=== PATIENT | female | born 1935 | race Caucasian/White ===

== ENCOUNTER 2023-03-20 14:33 | Inpatient (IN) ==
--- NOTE | 2023-03-20 14:36 | DR.GENAD ---
HPI Time Seen Time Seen by Provider: 03/20/23 14:52 Complaint/Symptoms Chief Complaint Doctors Comments: 87 y/o female presents for evaluation. Seen here few days ago with a left leg injury. + bruised, swollen, painful. Reportedly had a negative US last week, negative x-rays. Having generalized weak ness, shaking. Not eating or drinking well. Denies nausea, vomiting. Having some degree of constipation. Is urinating frequently, but no dysuria. No known fever, having some chills. No cough. On diuretic past few weeks, for leg swelling. Nurses notes reviewed Nurses Notes Review: Yes Source History Provided: Patient and Family Member PMH PMH Past Medical History: Yes Past Medical History: Anxiety and Hypertension Past Surgical History: Yes Surgical History: Cholecystectomy Family History Family Medical History: Diabetes Mellitus Social History Does patient currently use any type of tobacco product: No Alcohol Use: None Do you use any recreational Drugs:: No ROS Review of Systems Constitutional: Weakness Eyes: No Symptoms Reported ENTM: No Symptoms Reported Respiratoy: No Symptoms Reported Cardiovascular: No Symptoms Reported Gastrointestinal/Abdominal: No Symptoms Reported Genitourinary: Frequency Neurological: Weakness and Other (shakes) Musculoskeletal: Right and Leg Integumentary: No Symptoms Reported Hematologic/Lymphatic: No Symptoms Reported All Other Systems: Reviewed and Negative PE Vital Signs Vitals: Vital Signs Temperature 98.1 F Pulse Rate 77 Respiratory Rate 22 Blood Pressure 141/75 O2 Sat by Pulse Oximetry 100 General General Appearance: Alert and In No Apparent Distress Eyes Eye exam: PERRL and EOMI ENT ENT Exam: Mucous Membranes Moist Neck Neck Exam: Normal Inspection Respiratory Respiratory Exam: Normal Lung Sounds Bilat; negative Accessory Muscle Use or Respiratory Distress Cardiovascular Cardiovascular Exam: Regular Rate, Normal Rhythm and Normal Heart Sounds Abdominal Exam Abdominal Exam: Soft; negative Tenderness Back Back Exam: Normal Inspection Neurologic Neurological Exam: Alert, Oriented X3 and CN II-XII Intact; negative Motor Sensory Deficit Skin Skin Exam: Warm and Dry Other Exam Other Exam: RLE - + old ecchymosis of the entire anterior tib/fib region, + tender R calf. Distal NV intact. COURSE Treatment Treatment: 87 y/o female with weakness, shakes. Also with recent RLE injury. W/u initiated.Pt given IV fluids. CXR, R tib/fib x-rays unremarkable. Attempted repeat Doppler (was negative 1 week ago), pt declined. 1615 - U/A - 3+ janny est, 10-20 WBCs. Will treat with Rocephin for UTI (pt not PCN allergic, her father was). Sodium low at 131. Recommend admission for further treatment. Will contine IV NS. Discussed with Dr Ventura, accepts the admission. ROR Labs Reviewed Laboratory Results Reviewed?: Yes Result Diagrams: 03/20/23 15:02 03/20/23 15: Laboratory: WBC 5.3 X10^3/uL (3.6-10.0) 03/20/23 15: RBC 4.69 X10^6/uL (3.5-5.4) 03/20/23 15: Hgb 15.2 g/dL (12.0-16.0) 03/20/23 15: Hct 43.6 % (36.0-47.0) 03/20/23 15: MCV 92.8 fL (80.0-100.0) 03/20/23 15: MCH 32.5 pg (27.0-34.0) 03/20/23 15: MCHC 35.0 g/dL (33.0-35.0) 03/20/23 15: RDW 14.2 % (11.6-16.5) 03/20/23 15: Plt Count 179 X10^3/uL (150.0-450.0) 03/20/23 15:02 MPV 7.0 fL (7.4-11.0) L 03/20/23 15:02 Neut % (Auto) 72.7 % (42.0-75.0) 03/20/23 15:02 Lymph % (Auto) 18.6 % (21.0-51.0) L 03/20/23 15:02 [place] % (Auto) 7.3 % (0.0-13.0) 03/20/23 15:02 Eos % (Auto) 0.8 % (0.9-2.9) L 03/20/23 15:02 Baso % (Auto) 0.6 % (0.2-1.0) 03/20/23 15:02 Neut # (Auto) 3.8 x10^3/uL (2.2-4.8) 03/20/23 15:02 Lymph # (Auto) 1.0 X10^3/uL (1.3-2.9) L 03/20/23 15:02 [place] # (Auto) 0.4 x10^3/uL (0.3-0.8) 03/20/23 15:02 Eos # (Auto) 0.0 x10^3/uL (0.0-0.2) 03/20/23 15:02 Baso # (Auto) 0.0 X10^3/uL (0.0-0.1) 03/20/23 15:02 Absolute Nucleated RBC 0.0 /100WBC 03/20/23 15:02 Sodium 131 mmol/L (136-145) L 03/20/23 15:02 Corrected Sodium 132 mmol/L (136-145) L 03/20/23 15:02 Potassium 3.8 mmol/L (3.5-5.1) 03/20/23 15:02 Chloride 93 mmol/L (98-107) L 03/20/23 15:02 Carbon Dioxide 32.0 mmol/L (21-32) 03/20/23 15:02 BUN 17 mg/dL (7-18) 03/20/23 15:02 Creatinine 0.78 mg/dL (0.55-1.02) 03/20/23 15:02 Est GFR (MDRD) Af Amer > 60 (>60) 03/20/23 15:02 Est GFR (MDRD) Non-Af > 60 (>60) 03/20/23 15:02 Glucose 156 mg/dL (65-99) H 03/20/23 15:02 Calcium 9.6 mg/dL (8.5-10.1) 03/20/23 15:02 Corrected Calcium TNP 03/20/23 15:02 Total Bilirubin 0.90 mg/dL (0.2-1.0) 03/20/23 15:02 AST 20 Units/L (15-37) 03/20/23 15:02 ALT 24 Units/L (12-78) 03/20/23 15:02 Alkaline Phosphatase 72 Units/L (46-116) 03/20/23 15:02 Troponin I High Sens 17.0 ng/L (4.0-60.0) 03/20/23 15:02 Total Protein 7.0 g/dL (6.4-8.2) 03/20/23 15:02 Albumin 4.2 g/dL (3.4-5.0) 03/20/23 15:02 Globulin 2.8 g/dL (2.5-4.5) 03/20/23 15:02 Albumin/Globulin Ratio 1.5 Ratio (1.1-2.1) 03/20/23 15:02 Lipase 156 Units/L (73-393) 03/20/23 15:02 TSH 3rd Generation 1.603 uIU/mL (0.358-3.74) 03/20/23 15:02 Specimen Type Catherized urine 03/20/23 15:40 Urine Color Straw (YELLOW) 03/20/23 15:40 Urine Appearance Hazy (CLEAR) 03/20/23 15:40 Urine pH 8.0 (5.0 - 8.0) 03/20/23 15:40 Ur Specific [place] 1.015 (1.000-1.030) 03/20/23 15:40 Urine Protein Negative (NEGATIVE) 03/20/23 15:40 Urine Glucose (UA) Negative (NEGATIVE) 03/20/23 15:40 Urine Ketones Negative (NEGATIVE) 03/20/23 15:40 Urine Blood 1+ (NEGATIVE) 03/20/23 15:40 Urine Nitrite Negative (NEGATIVE) 03/20/23 15:40 Urine Bilirubin Negative (NEGATIVE) 03/20/23 15:40 Urine Urobilinogen Normal (NORMAL) 03/20/23 15:40 Ur Leukocyte Esterase 3+ (NEGATIVE) 03/20/23 15:40 Urine RBC 0-2 /HPF (0-3) 03/20/23 15:40 Urine WBC 10-20 /HPF (0-5) A 03/20/23 15:40 Ur Squamous Epith Cells Rare /HPF (NEGATIVE) 03/20/23 15:40 Urine Bacteria 1+ /HPF (NEGATIVE) 03/20/23 15:40 Urine Mucus Few /HPF (NEGATIVE) 03/20/23 15:40 Ur Culture Indicated? Yes/culture set up 03/20/23 15:40 Na 131, U/A 10-20 /hpf. XRAY XRAY Interpreted by: Both X-ray Results: CXR - unremarkable. R tib/fib - + DJD, no obvious fracture. Opioid Opioid Risk Tool Age (Nithin box if 16-45): No History of Preadolescent Sexual Abuse: No Total: 0 Total Score Risk Category: Low Risk Copyright: Joby RUST predicting aberrant behaviors Discharge Plan Diagnosis Discharge Problem: Acute hyponatremia, Acute UTI, Generalized weakness Discharge Plan Patient Disposition: 09 ADMITTED INPATIENT Condition: Stable Prescriptions: No Action triamterene-hydrochlorothiazid 37.5-25 mg capsule 1 cap PO QDAY Qty: 90 3RF rivastigmine tartrate 1.5 mg capsule 1.5 mg PO BID Qty: 60 0RF carisoprodol 350 mg tablet 350 mg PO BID PRN clonazepam 0.5 mg tablet 0.5 mg PO BID PRN megestrol 40 mg Tablet 40 mg PO BID baclofen 5 mg Tablet 5 mg PO TID PRN Health Concerns: Post Hospitalization: new medications and changes needed to prevent readmission or further decline. Pt educated and given instructions on all concerns. Plan of Treatment: Continue with present treatment and follow up plan. Pt is to keep follow up appointment as instructed and take medications as ordered. Orders to Discharge Patient Discharge Orders: Transfer (Routine); Ordered 03/20/23 Ordered By: Andrew Alonzo Follow ups/Referrals Follow ups/Referrals: LE VENTURA [Primary Care Provider] - 3 days
[2023-03-20] MEDS ORDERED: NS 500 ML IV 500 ML IV ONE ×2 (14:53→14:56)
[2023-03-20 15:32] LABS: BASOPHILS % (AUTO) 0.6 % (0.2-1.0); EOSINOPHILS % (AUTO) 0.8 % (0.9-2.9); HEMATOCRIT 43.6 % (36.0-47.0); HEMOGLOBIN 15.2 g/dL (12.0-16.0); LYMPHOCYTES % (AUTO) 18.6 % (21.0-51.0); MEAN CORPUSCULAR HEMOGLOBIN 32.5 pg (27.0-34.0); MEAN CORPUSCULAR VOLUME 92.8 fL (80.0-100.0); MONOCYTES # (AUTO) 0.4 x10^3/uL (0.3-0.8); MONOCYTES % (AUTO) 7.3 % (0.0-13.0); NEUTROPHILS # (AUTO) 3.8 x10^3/uL (2.2-4.8); NEUTROPHILS % (AUTO) 72.7 % (42.0-75.0); PLATELET COUNT 179 X10^3/uL (150.0-450.0); RED BLOOD COUNT 4.69 X10^6/uL (3.5-5.4); RED CELL DISTRIBUTION WIDTH 14.2 % (11.6-16.5); WHITE BLOOD COUNT 5.3 X10^3/uL (3.6-10.0)
[2023-03-20 15:50] LABS: BILIRUBIN,URINE NEGATIVE (NEGATIVE); BLOOD/HEMOGLOBIN,URINE 1+ (NEGATIVE); GLUCOSE, URINE NEGATIVE (NEGATIVE); KETONES,URINE NEGATIVE (NEGATIVE); LEUKOCYTE ESTERASE ,URINE 3+ (NEGATIVE); NITRITES,URINE NEGATIVE (NEGATIVE); PROTEIN,URINE NEGATIVE (NEGATIVE); UROBILINOGEN,URINE NORMAL (NORMAL)
[2023-03-20 15:57] LABS: ALANINE AMINOTRANSFERASE 24 Units/L (12-78); ALBUMIN 4.2 g/dL (3.4-5.0); ALKALINE PHOSPHATASE 72 Units/L (46-116); ASPARTATE AMINO TRANSFERASE 20 Units/L (15-37); BLOOD UREA NITROGEN 17 mg/dL (7-18); CALCIUM 9.6 mg/dL (8.5-10.1); CHLORIDE 93 mmol/L (98-107); COR NA(FOR HYPERGLY) 132 mmol/L (136-145); CREATININE 0.78 mg/dL (0.55-1.02); GLUCOSE 156 mg/dL (65-99); LIPASE 156 Units/L (73-393); POTASSIUM 3.8 mmol/L (3.5-5.1); SODIUM 131 mmol/L (136-145); TSH (3RD GENERATION) 1.603 uIU/mL (0.358-3.74); eGFR NON BLACK RACES > 60 (>60)
[2023-03-20 16:02] LABS: APPEARANCE,URINE HAZY (CLEAR); COLOR,URINE STRAW (YELLOW)
[2023-03-20 16:03] LABS: BACTERIA,URINE 1+ /HPF (NEGATIVE); RBC,URINE 0-2 /HPF (0-3); SQUAMOUS EPITHELIAL CELL,UR RARE /HPF (NEGATIVE)
--- NOTE | 2023-03-20 16:09 | RAD ---
HISTORYWeaknessSTUDYAP chestCOMPARISONReport only October 12, 2017FINDINGSHeart size normal with no definite pulmonary consolidation, edema, adenopathy or pleural effusion.IMPRESSIONNo acute chest abnormality demonstrated. Previous exam for comparison not currently available.Electronically signed by: DAGOBERTO SÁNCHEZ (Mar 20, 2023 16:08:05)
[2023-03-20] MEDS ORDERED: ROCEPHIN VIAL 1 GRAM 1 G in NS 100 ML IV 100 ML IV ONE (16:16)
[2023-03-20] MEDS ORDERED: ROCEPHIN VIAL 1 GRAM ONE (16:22)
[2023-03-20] MEDS ORDERED: NS 100 ML IV 100 ML ONE (16:22)
[2023-03-20 18:40] VITALS: BMI 27.1
--- NOTE | 2023-03-20 21:27 | DR.H&P ---
H&P History & Physical for Day of: H&P Date: 03/20/23 Chief Complaint Chief Complaint: Weak, shaky and unable to get into the bed. Allergies Allergies Allergy/AdvReac Type Severity Reaction Status Date / Time benzonatate Allergy Verified 03/14/23 13:57 [From Tessalon Perles] meperidine [From Demerol] Allergy Verified 03/14/23 13:57 Penicillins Allergy Verified 03/14/23 13:57 rofecoxib [From Vioxx] Allergy Verified 03/14/23 13:57 WATER PILLS Allergy Uncoded 04/18/22 11:31 History of Present Illness History of Present Illness: This is a 87-year-old white female well-known to me. She called our office earlier this morning and said that she was going to call the EMS to come get her and she is not able to get into the bed. She reports that she is weak and shaky feeling and that she has been having some swelling of the right lower extremity. She does report a recent injury to the right lower extremity from a fall in which she came to the [facility] emergency department about 3 days ago and was seen. One of the nurses tried to put on a leg wrap and the patient reports that it bruised her right lower extremity. She reports she has not slept for the last 3 days and feels exhausted and wants to rest and go to bed. Work-up in the emergency department revealed that she has a urinary tract infection and she had some hyponatremia as well. Her labs are otherwise unremarkable. Her chest x-ray shows no acute cardiopulmonary process and no infiltrates. Patient has a very great difficulty ambulating and getting around her home and I have discussed senior care placement with her in the past however she is adamant about not going to the senior care. She does not like to take any medications of any kind and he has made it very difficult in treating this patient. Past Medical History Past Medical History: Anxiety and Hypertension Past Surgical History Surgical History: Cholecystectomy and Tonsillectomy Family History Family Medical History: Diabetes Mellitus Social History Does patient currently use any type of tobacco product: No Have you used tobacco products in the last 12 months: No Type of Tobacco Use: None Does any household member use tobacco: No Alcohol Use: None Drug Use: None Medications Home Medications: Home Medications Medication Instructions Recorded Confirmed Type baclofen 5 mg tablet 5 mg PO TID PRN 03/20/23 03/20/23 History carisoprodol 350 mg tablet 350 mg PO BID PRN 03/20/23 03/20/23 History clonazepam 0.5 mg tablet 0.5 mg PO BID PRN 03/20/23 03/20/23 History megestrol 40 mg tablet 40 mg PO BID 03/20/23 03/20/23 History Labs Result Diagrams: 03/20/23 15:02 03/20/23 15:02 Labs: Laboratory WBC 5.3 X10^3/uL (3.6-10.0) 03/20/23 15:02 RBC 4.69 X10^6/uL (3.5-5.4) 03/20/23 15:02 Hgb 15.2 g/dL (12.0-16.0) 03/20/23 15:02 Hct 43.6 % (36.0-47.0) 03/20/23 15:02 MCV 92.8 fL (80.0-100.0) 03/20/23 15:02 MCH 32.5 pg (27.0-34.0) 03/20/23 15:02 MCHC 35.0 g/dL (33.0-35.0) 03/20/23 15:02 RDW 14.2 % (11.6-16.5) 03/20/23 15:02 Plt Count 179 X10^3/uL (150.0-450.0) 03/20/23 15:02 MPV 7.0 fL (7.4-11.0) L 03/20/23 15:02 Neut % (Auto) 72.7 % (42.0-75.0) 03/20/23 15:02 Lymph % (Auto) 18.6 % (21.0-51.0) L 03/20/23 15:02 [place] % (Auto) 7.3 % (0.0-13.0) 03/20/23 15:02 Eos % (Auto) 0.8 % (0.9-2.9) L 03/20/23 15:02 Baso % (Auto) 0.6 % (0.2-1.0) 03/20/23 15:02 Neut # (Auto) 3.8 x10^3/uL (2.2-4.8) 03/20/23 15:02 Lymph # (Auto) 1.0 X10^3/uL (1.3-2.9) L 03/20/23 15:02 [place] # (Auto) 0.4 x10^3/uL (0.3-0.8) 03/20/23 15:02 Eos # (Auto) 0.0 x10^3/uL (0.0-0.2) 03/20/23 15:02 Baso # (Auto) 0.0 X10^3/uL (0.0-0.1) 03/20/23 15:02 Absolute Nucleated RBC 0.0 /100WBC 03/20/23 15:02 Sodium 131 mmol/L (136-145) L 03/20/23 15:02 Corrected Sodium 132 mmol/L (136-145) L 03/20/23 15:02 Potassium 3.8 mmol/L (3.5-5.1) 03/20/23 15:02 Chloride 93 mmol/L (98-107) L 03/20/23 15:02 Carbon Dioxide 32.0 mmol/L (21-32) 03/20/23 15:02 BUN 17 mg/dL (7-18) 03/20/23 15:02 Creatinine 0.78 mg/dL (0.55-1.02) 03/20/23 15:02 Est GFR (MDRD) Af Amer > 60 (>60) 03/20/23 15:02 Est GFR (MDRD) Non-Af > 60 (>60) 03/20/23 15:02 Glucose 156 mg/dL (65-99) H 03/20/23 15:02 Calcium 9.6 mg/dL (8.5-10.1) 03/20/23 15:02 Corrected Calcium TNP 03/20/23 15:02 Total Bilirubin 0.90 mg/dL (0.2-1.0) 03/20/23 15:02 AST 20 Units/L (15-37) 03/20/23 15:02 ALT 24 Units/L (12-78) 03/20/23 15:02 Alkaline Phosphatase 72 Units/L (46-116) 03/20/23 15:02 Troponin I High Sens 17.0 ng/L (4.0-60.0) 03/20/23 15:02 Total Protein 7.0 g/dL (6.4-8.2) 03/20/23 15:02 Albumin 4.2 g/dL (3.4-5.0) 03/20/23 15:02 Globulin 2.8 g/dL (2.5-4.5) 03/20/23 15:02 Albumin/Globulin Ratio 1.5 Ratio (1.1-2.1) 03/20/23 15:02 Lipase 156 Units/L (73-393) 03/20/23 15:02 TSH 3rd Generation 1.603 uIU/mL (0.358-3.74) 03/20/23 15:02 Specimen Type Catherized urine 03/20/23 15:40 Urine Color Straw (YELLOW) 03/20/23 15:40 Urine Appearance Hazy (CLEAR) 03/20/23 15:40 Urine pH 8.0 (5.0 - 8.0) 03/20/23 15:40 Ur Specific [place] 1.015 (1.000-1.030) 03/20/23 15:40 Urine Protein Negative (NEGATIVE) 03/20/23 15:40 Urine Glucose (UA) Negative (NEGATIVE) 03/20/23 15:40 Urine Ketones Negative (NEGATIVE) 03/20/23 15:40 Urine Blood 1+ (NEGATIVE) 03/20/23 15:40 Urine Nitrite Negative (NEGATIVE) 03/20/23 15:40 Urine Bilirubin Negative (NEGATIVE) 03/20/23 15:40 Urine Urobilinogen Normal (NORMAL) 03/20/23 15:40 Ur Leukocyte Esterase 3+ (NEGATIVE) 03/20/23 15:40 Urine RBC 0-2 /HPF (0-3) 03/20/23 15:40 Urine WBC 10-20 /HPF (0-5) A 03/20/23 15:40 Ur Squamous Epith Cells Rare /HPF (NEGATIVE) 03/20/23 15:40 Urine Bacteria 1+ /HPF (NEGATIVE) 03/20/23 15:40 Urine Mucus Few /HPF (NEGATIVE) 03/20/23 15:40 Ur Culture Indicated? Yes/culture set up 03/20/23 15:40 Review of Systems Constitutional: Weakness and Malaise; denies Fever, Chills or Sweats Eyes: No Symptoms Reported ENT: No Symptoms Reported Respiratory: SOB with Excertion; denies Cough, Dry, Shortness of Breath, Hemoptysis, Pleuritic Pain, Sputum or Wheezing Cardiovascular: Edema; denies Chest Pain, Palpitations, Orthopnea, Paroxysmal Noc. Dyspnea or Light Headedness Gastrointestinal: denies Nausea, Vomiting, Abdominal Pain, Diarrhea, Constipation, Melena or Hematochezia Genitourinary: Frequency; denies Dysuria or Hematuria Musculoskeletal: Leg Pain and Neck Pain Skin: Bruising and Ecchymosis; denies Rash, Lesions, Jaundice or Wound Neurological: Weakness and Incoordination; denies Numbness, Change in Speech, Confusion or Seizures Physical Exam Vital Signs: Vital Signs Temperature 97.9 F Temperature 97.9 F Temperature 98.1 F Temperature 98.1 F Pulse Rate [Brachial] 81 Pulse Rate [Brachial] 81 Pulse Rate [Brachial] 77 Pulse Rate 77 Respiratory Rate 18 Respiratory Rate 18 Respiratory Rate 20 Respiratory Rate 22 Blood Pressure [Left Arm] 112/56 Blood Pressure [Left Arm] 112/56 Blood Pressure [Left Arm] 141/75 Blood Pressure 141/75 O2 Sat by Pulse Oximetry 94 O2 Sat by Pulse Oximetry 94 O2 Sat by Pulse Oximetry 97 O2 Sat by Pulse Oximetry 100 Oriented: Normal, Time, Person and Place Eyes: Normal Ear: Normal Nose: Normal Throat: Normal Respiratory: Clear Throughout Cardiovascular: Normal : Normal Auscultation: Bowel Sounds: Normal Palpation: Normal Tenderness: Normal Skin: Tender and Ecchymosis Musculoskeletal: Right and Leg Psychiatric: Anxiety and Depression; negative Normal or Agitation Mood Description: Calm, Depressed, Anxious and Labile; negative Angry, Fearful, Flat, Happy, Hostile, Sad, Suspicious or Withdrawn Affect: Anxious; negative Angry, Depressed, Flat, Hysterical, Quiet or Violent Speech Pattern: Clear and Appropriate; negative Inappropriate, Delayed, Slurred, Excessive or Aphasic Assessment/Plan (1) Acute hyponatremia: Status: Acute Plan: Normal saline IV hydration. Repeat CMP in a.m. (2) Acute UTI: Status: Acute Plan: Rocephin 1 g IV daily. Follow-up with urine culture and sensitivity when available. (3) Generalized weakness: Status: Acute Plan: IV hydration with normal saline. If her sodium normalizes that should help improve her overall strength. (4) Memory loss: Status: Acute Plan: Resume rivastigmine 1.5 mg p.o. twice daily. (5) Depression with anxiety: Status: Acute Plan: Monitor for worsening signs of depression and anxiety. (6) Chronic back pain: Status: Acute Plan: Tramadol as needed for pain. (7) Hypertension: Status: None Plan: Monitor daily blood pressures. Review H&P Reviewed: Yes Patient was examined?: Yes
[2023-03-20] MEDS: MEGACE PO SCH (21:37)
[2023-03-20] MEDS: EXELON PO SCH (21:37)
[2023-03-20] MEDS: LIORESAL PO PRN (21:52)
[2023-03-20] MEDS: NS 500 ML IV 500 ML IV SCH (22:00)
--- NOTE | 2023-03-21 01:16 | RAD ---
HISTORYWEAKNESS Relevant Clinical InformationSTUDYLOWER LEG, TIB/FIB RIGHTCOMPARISONNoneFINDINGSAP and lateral radiographs of the lower extremity demonstrate no evidence for acute cortical disruption. No significant soft tissue abnormality can be identified. Moderate degenerative changes involving the right knee joint.IMPRESSIONModerate degenerative osteoarthritic changes right knee joint.No acute bony abnormalityElectronically signed by: George Jones (Mar 21, 2023 01:14:12)
[2023-03-21] MEDS: NS 500 ML IV 500 ML IV SCH ×4 (03:40→21:13)
[2023-03-21 06:02] LABS: BASOPHILS % (AUTO) 0.6 % (0.2-1.0); EOSINOPHILS # (AUTO) 0.1 x10^3/uL (0.0-0.2); EOSINOPHILS % (AUTO) 1.4 % (0.9-2.9); HEMATOCRIT 38.4 % (36.0-47.0); HEMOGLOBIN 13.5 g/dL (12.0-16.0); LYMPHOCYTES # (AUTO) 0.9 X10^3/uL (1.3-2.9); LYMPHOCYTES % (AUTO) 13.5 % (21.0-51.0); MEAN CORPUSCULAR HEMOGLOBIN 32.4 pg (27.0-34.0); MEAN CORPUSCULAR HGB CONC 35.2 g/dL (33.0-35.0); MEAN CORPUSCULAR VOLUME 92.1 fL (80.0-100.0); MEAN PLATELET VOLUME 7.1 fL (7.4-11.0); MONOCYTES # (AUTO) 0.5 x10^3/uL (0.3-0.8); MONOCYTES % (AUTO) 7.6 % (0.0-13.0); NEUTROPHILS # (AUTO) 4.8 x10^3/uL (2.2-4.8); NEUTROPHILS % (AUTO) 76.9 % (42.0-75.0); PLATELET COUNT 160 X10^3/uL (150.0-450.0); RED BLOOD COUNT 4.17 X10^6/uL (3.5-5.4); WHITE BLOOD COUNT 6.3 X10^3/uL (3.6-10.0)
[2023-03-21 06:14] LABS: ALANINE AMINOTRANSFERASE 19 Units/L (12-78); ALBUMIN 3.5 g/dL (3.4-5.0); ALKALINE PHOSPHATASE 61 Units/L (46-116); ASPARTATE AMINO TRANSFERASE 15 Units/L (15-37); BLOOD UREA NITROGEN 14 mg/dL (7-18); CALCIUM 8.7 mg/dL (8.5-10.1); CARBON DIOXIDE 30.4 mmol/L (21-32); CHLORIDE 98 mmol/L (98-107); COR NA(FOR HYPERGLY) 135 mmol/L (136-145); CREATININE 0.59 mg/dL (0.55-1.02); GLUCOSE 115 mg/dL (65-99); MAGNESIUM 2.2 mg/dL (2.0-2.9); POTASSIUM 3.7 mmol/L (3.5-5.1); SODIUM 135 mmol/L (136-145); TOTAL PROTEIN 5.9 g/dL (6.4-8.2); eGFR NON BLACK RACES > 60 (>60)
[2023-03-21] MEDS ORDERED: CONSULT PHARMACY - POTASSIUM & MAGNESIUM XX SCH (07:00)
[2023-03-21] MEDS ORDERED: K-DUR TAB 20 MEQ PO SCH (09:00)
[2023-03-21] MEDS: EXELON PO SCH ×2 (10:40→21:14)
[2023-03-21] MEDS: LOVENOX INJ 40 MG SYR SC SCH (10:40)
[2023-03-21] MEDS: MEGACE PO SCH ×2 (10:40→21:14)
[2023-03-21] MEDS: ROCEPHIN VIAL 1 GRAM 1 G in NS 100 ML IV 100 ML IV SCH (15:37)
[2023-03-21] MEDS: RESTORIL CAP 15 MG PO SCH (21:14)
--- NOTE | 2023-03-21 21:17 | PCM.PROG ---
Progress Note Progress Note for Day of Date of Exam: 03/21/23 Subjective Subjective: The patient reports she did not sleep well last night. She is feeling a little bit better this morning since receiving Rocephin yesterday for urinary tract infection she was diagnosed with coming through the ER. She reports there was a lot of people coming in the room last night and because of that it was interrupting her sleep. I told her tonight we would start her on some temazepam to help her rest better. We are giving her baclofen at bedtime for her nocturnal leg cramps especially in the left posterior thigh. Past Medical Family Social History Allergies: Allergies benzonatate [From Tessalon Perles] Allergy (Verified 03/14/23 13:57) meperidine [From Demerol] Allergy (Verified 03/14/23 13:57) Penicillins Allergy (Verified 03/14/23 13:57) rofecoxib [From Vioxx] Allergy (Verified 03/14/23 13:57) WATER PILLS Allergy (Uncoded 04/18/22 11:31) Review of Systems ROS: No change since H&P Vital Signs and I&O's Vital Signs: Vital Signs Temperature 98.2 F Pulse Rate [Brachial] 69 Respiratory Rate 18 Blood Pressure [Right Arm] 106/51 O2 Sat by Pulse Oximetry 69 Intake and Output: Intake & Output 03/19/23 03/20/23 03/21/23 03/22/23 11:59 11:59 11:59 11:59 Intake Total 1009 / 1009 925 / 925 Output Total 1170 / 1170 725 / 725 Balance -161 / -161 200 / 200 Physical Exam Oriented: Normal, Time, Person and Place Eyes: Normal Ear: Normal Nose: Normal Throat: Normal Respiratory: Normal Cardiovascular: Normal : Normal Auscultation: Bowel Sounds: Normal Tenderness: Normal Skin: Tender and Ecchymosis Musculoskeletal: Right and Leg Psychiatric: Anxiety and Depression; negative Normal or Agitation Mood Description: Calm, Depressed, Anxious and Labile; negative Angry, Fearful, Flat, Happy, Hostile, Sad, Suspicious or Withdrawn Affect: Anxious; negative Angry, Depressed, Flat, Hysterical, Quiet or Violent Speech Pattern: Clear and Appropriate Laboratory and Diagnostics Result Diagrams: 03/21/23 05:09 03/21/23 05:09 Labs: 03/20/23 15:40 Urine,Catheterized Urine Culture - Preliminary Laboratory WBC 6.3 X10^3/uL (3.6-10.0) 03/21/23 05:09 RBC 4.17 X10^6/uL (3.5-5.4) 03/21/23 05:09 Hgb 13.5 g/dL (12.0-16.0) 03/21/23 05:09 Hct 38.4 % (36.0-47.0) 03/21/23 05:09 MCV 92.1 fL (80.0-100.0) 03/21/23 05:09 MCH 32.4 pg (27.0-34.0) 03/21/23 05:09 MCHC 35.2 g/dL (33.0-35.0) H 03/21/23 05:09 RDW 14.0 % (11.6-16.5) 03/21/23 05:09 Plt Count 160 X10^3/uL (150.0-450.0) 03/21/23 05:09 MPV 7.1 fL (7.4-11.0) L 03/21/23 05:09 Neut % (Auto) 76.9 % (42.0-75.0) H 03/21/23 05:09 Lymph % (Auto) 13.5 % (21.0-51.0) L 03/21/23 05:09 [place] % (Auto) 7.6 % (0.0-13.0) 03/21/23 05:09 Eos % (Auto) 1.4 % (0.9-2.9) 03/21/23 05:09 Baso % (Auto) 0.6 % (0.2-1.0) 03/21/23 05:09 Neut # (Auto) 4.8 x10^3/uL (2.2-4.8) 03/21/23 05:09 Lymph # (Auto) 0.9 X10^3/uL (1.3-2.9) L 03/21/23 05:09 [place] # (Auto) 0.5 x10^3/uL (0.3-0.8) 03/21/23 05:09 Eos # (Auto) 0.1 x10^3/uL (0.0-0.2) 03/21/23 05:09 Baso # (Auto) 0.0 X10^3/uL (0.0-0.1) 03/21/23 05:09 Absolute Nucleated RBC 0.0 /100WBC 03/21/23 05:09 Sodium 135 mmol/L (136-145) L 03/21/23 05:09 Corrected Sodium 135 mmol/L (136-145) L 03/21/23 05:09 Potassium 3.7 mmol/L (3.5-5.1) 03/21/23 05:09 Chloride 98 mmol/L (98-107) 03/21/23 05:09 Carbon Dioxide 30.4 mmol/L (21-32) 03/21/23 05:09 BUN 14 mg/dL (7-18) 03/21/23 05:09 Creatinine 0.59 mg/dL (0.55-1.02) 03/21/23 05:09 Est GFR (MDRD) Af Amer > 60 (>60) 03/21/23 05:09 Est GFR (MDRD) Non-Af > 60 (>60) 03/21/23 05:09 Glucose 115 mg/dL (65-99) H 03/21/23 05:09 Calcium 8.7 mg/dL (8.5-10.1) 03/21/23 05:09 Corrected Calcium TNP 03/21/23 05:09 Magnesium 2.2 mg/dL (2.0-2.9) 03/21/23 05:09 Total Bilirubin 0.70 mg/dL (0.2-1.0) 03/21/23 05:09 AST 15 Units/L (15-37) 03/21/23 05:09 ALT 19 Units/L (12-78) 03/21/23 05:09 Alkaline Phosphatase 61 Units/L (46-116) 03/21/23 05:09 Troponin I High Sens 17.0 ng/L (4.0-60.0) 03/20/23 15:02 Total Protein 5.9 g/dL (6.4-8.2) L 03/21/23 05:09 Albumin 3.5 g/dL (3.4-5.0) 03/21/23 05:09 Globulin 2.4 g/dL (2.5-4.5) L 03/21/23 05:09 Albumin/Globulin Ratio 1.5 Ratio (1.1-2.1) 03/21/23 05:09 Lipase 156 Units/L (73-393) 03/20/23 15:02 TSH 3rd Generation 1.603 uIU/mL (0.358-3.74) 03/20/23 15:02 Specimen Type Catherized urine 03/20/23 15:40 Urine Color Straw (YELLOW) 03/20/23 15:40 Urine Appearance Hazy (CLEAR) 03/20/23 15:40 Urine pH 8.0 (5.0 - 8.0) 03/20/23 15:40 Ur Specific [place] 1.015 (1.000-1.030) 03/20/23 15:40 Urine Protein Negative (NEGATIVE) 03/20/23 15:40 Urine Glucose (UA) Negative (NEGATIVE) 03/20/23 15:40 Urine Ketones Negative (NEGATIVE) 03/20/23 15:40 Urine Blood 1+ (NEGATIVE) 03/20/23 15:40 Urine Nitrite Negative (NEGATIVE) 03/20/23 15:40 Urine Bilirubin Negative (NEGATIVE) 03/20/23 15:40 Urine Urobilinogen Normal (NORMAL) 03/20/23 15:40 Ur Leukocyte Esterase 3+ (NEGATIVE) 03/20/23 15:40 Urine RBC 0-2 /HPF (0-3) 03/20/23 15:40 Urine WBC 10-20 /HPF (0-5) A 03/20/23 15:40 Ur Squamous Epith Cells Rare /HPF (NEGATIVE) 03/20/23 15:40 Urine Bacteria 1+ /HPF (NEGATIVE) 03/20/23 15:40 Urine Mucus Few /HPF (NEGATIVE) 03/20/23 15:40 Ur Culture Indicated? Yes/culture set up 03/20/23 15:40 Plan (1) Acute hyponatremia: Status: Acute Narrative Support Text: Much improved since admission she is 135 today on her sodium level. Plan: Normal saline IV hydration. Repeat CMP in a.m. (2) Acute UTI: Status: Acute Plan: Rocephin 1 g IV daily. Follow-up with urine culture and sensitivity when available. (3) Generalized weakness: Status: Acute Plan: IV hydration with normal saline. If her sodium normalizes that ould help improve her overall strength. (4) Memory loss: Status: Acute Plan: Resume rivastigmine 1.5 mg p.o. twice daily. (5) Depression with anxiety: Status: Acute Plan: Monitor for worsening signs of depression and anxiety. (6) Chronic back pain: Status: Acute Plan: Tramadol as needed for pain. (7) Hypertension: Status: None Plan: Monitor daily blood pressures.
[2023-03-22] MEDS: NS 500 ML IV 500 ML IV SCH ×3 (03:50→23:57)
[2023-03-22 06:33] LABS: BASOPHILS % (AUTO) 0.9 % (0.2-1.0); EOSINOPHILS # (AUTO) 0.1 x10^3/uL (0.0-0.2); EOSINOPHILS % (AUTO) 2.2 % (0.9-2.9); HEMATOCRIT 40.3 % (36.0-47.0); LYMPHOCYTES # (AUTO) 1.5 X10^3/uL (1.3-2.9); LYMPHOCYTES % (AUTO) 25.5 % (21.0-51.0); MEAN CORPUSCULAR HEMOGLOBIN 32.6 pg (27.0-34.0); MEAN CORPUSCULAR HGB CONC 34.8 g/dL (33.0-35.0); MEAN CORPUSCULAR VOLUME 93.5 fL (80.0-100.0); MONOCYTES # (AUTO) 0.5 x10^3/uL (0.3-0.8); MONOCYTES % (AUTO) 8.3 % (0.0-13.0); NEUTROPHILS # (AUTO) 3.6 x10^3/uL (2.2-4.8); NEUTROPHILS % (AUTO) 63.1 % (42.0-75.0); PLATELET COUNT 135 X10^3/uL (150.0-450.0); RED BLOOD COUNT 4.31 X10^6/uL (3.5-5.4); RED CELL DISTRIBUTION WIDTH 14.1 % (11.6-16.5); WHITE BLOOD COUNT 5.7 X10^3/uL (3.6-10.0)
[2023-03-22 07:06] LABS: ALANINE AMINOTRANSFERASE 18 Units/L (12-78); ALBUMIN 3.5 g/dL (3.4-5.0); ALKALINE PHOSPHATASE 63 Units/L (46-116); ASPARTATE AMINO TRANSFERASE 19 Units/L (15-37); BLOOD UREA NITROGEN 8 mg/dL (7-18); CARBON DIOXIDE 24.7 mmol/L (21-32); CHLORIDE 102 mmol/L (98-107); CREATININE 0.53 mg/dL (0.55-1.02); GLUCOSE 103 mg/dL (65-99); MAGNESIUM 2.3 mg/dL (2.0-2.9); POTASSIUM 3.9 mmol/L (3.5-5.1); SODIUM 136 mmol/L (136-145); TOTAL PROTEIN 6.2 g/dL (6.4-8.2); eGFR NON BLACK RACES > 60 (>60)
[2023-03-22] MEDS ORDERED: CONSULT PHARMACY - POTASSIUM & MAGNESIUM XX SCH (08:00)
[2023-03-22] MEDS: MEGACE PO SCH ×2 (08:43→21:26)
[2023-03-22] MEDS: EXELON PO SCH ×2 (08:43→21:26)
[2023-03-22] MEDS: LOVENOX INJ 40 MG SYR SC SCH (08:44)
[2023-03-22] MEDS: ROCEPHIN VIAL 1 GRAM 1 G in NS 100 ML IV 100 ML IV SCH (15:53)
--- NOTE | 2023-03-22 20:59 | PCM.PROG ---
Progress Note Progress Note for Day of Date of Exam: 03/22/23 Subjective Subjective: The patient reports she did sleep 4 hours last night. We did give her temazepam 30 mg last night. This did help her to sleep longer than what she normally sleeps. She looks better overall but now she is complaining still having great difficulty getting around. I told her that we will go ahead and get physical therapy to see her today and start working with her. She is having such a hard time getting around I think inpatient physical therapy would do her good for the next 2 to 3 to 4 days before discharging her back home. She refuses to go to inpatient rehab at this time. Past Medical Family Social History Allergies: Allergies benzonatate [From Tessalon Perles] Allergy (Verified 03/14/23 13:57) meperidine [From Demerol] Allergy (Verified 03/14/23 13:57) Penicillins Allergy (Verified 03/14/23 13:57) rofecoxib [From Vioxx] Allergy (Verified 03/14/23 13:57) WATER PILLS Allergy (Uncoded 04/18/22 11:31) Review of Systems ROS: No change since H&P Vital Signs and I&O's Vital Signs: Vital Signs Temperature 97.5 F Pulse Rate [Brachial] 76 Respiratory Rate 20 Blood Pressure [Left Arm] 121/60 Blood Pressure [Right Arm] 131/60 O2 Sat by Pulse Oximetry 98 Intake and Output: Intake & Output 03/20/23 03/21/23 03/22/23 03/23/23 11:59 11:59 11:59 11:59 Intake Total 1009 / 1009 2522 / 2522 1085 / 1085 Output Total 1170 / 1170 1725 / 1725 800 / 800 Balance -161 / -161 797 / 797 285 / 285 Physical Exam Oriented: Normal, Time, Person and Place Eyes: Normal Ear: Normal Nose: Normal Throat: Normal Respiratory: Normal Cardiovascular: Normal : Normal Auscultation: Bowel Sounds: Normal Tenderness: Normal Skin: Tender and Ecchymosis Musculoskeletal: Right and Leg Psychiatric: Anxiety and Depression; negative Normal or Agitation Mood Description: Calm, Depressed, Anxious and Labile; negative Angry, Fearful, Flat, Happy, Hostile, Sad, Suspicious or Withdrawn Affect: Anxious; negative Angry, Depressed, Flat, Hysterical, Quiet or Violent Speech Pattern: Clear and Appropriate Laboratory and Diagnostics Result Diagrams: 03/22/23 05:38 03/22/23 05:38 Labs: 03/20/23 15:40 Urine,Catheterized Urine Culture - Final Escherichia Coli Laboratory WBC 5.7 X10^3/uL (3.6-10.0) 03/22/23 05:38 RBC 4.31 X10^6/uL (3.5-5.4) 03/22/23 05:38 Hgb 14.0 g/dL (12.0-16.0) 03/22/23 05:38 Hct 40.3 % (36.0-47.0) 03/22/23 05:38 MCV 93.5 fL (80.0-100.0) 03/22/23 05:38 MCH 32.6 pg (27.0-34.0) 03/22/23 05:38 MCHC 34.8 g/dL (33.0-35.0) 03/22/23 05:38 RDW 14.1 % (11.6-16.5) 03/22/23 05:38 Plt Count 135 X10^3/uL (150.0-450.0) L 03/22/23 05:38 MPV 7.0 fL (7.4-11.0) L 03/22/23 05:38 Neut % (Auto) 63.1 % (42.0-75.0) 03/22/23 05:38 Lymph % (Auto) 25.5 % (21.0-51.0) 03/22/23 05:38 [place] % (Auto) 8.3 % (0.0-13.0) 03/22/23 05:38 Eos % (Auto) 2.2 % (0.9-2.9) 03/22/23 05:38 Baso % (Auto) 0.9 % (0.2-1.0) 03/22/23 05:38 Neut # (Auto) 3.6 x10^3/uL (2.2-4.8) 03/22/23 05:38 Lymph # (Auto) 1.5 X10^3/uL (1.3-2.9) 03/22/23 05:38 [place] # (Auto) 0.5 x10^3/uL (0.3-0.8) 03/22/23 05:38 Eos # (Auto) 0.1 x10^3/uL (0.0-0.2) 03/22/23 05:38 Baso # (Auto) 0.0 X10^3/uL (0.0-0.1) 03/22/23 05:38 Absolute Nucleated RBC 0.0 /100WBC 03/22/23 05:38 Sodium 136 mmol/L (136-145) 03/22/23 05:38 Corrected Sodium TNP 03/22/23 05:38 Potassium 3.9 mmol/L (3.5-5.1) 03/22/23 05:38 Chloride 102 mmol/L (98-107) 03/22/23 05:38 Carbon Dioxide 24.7 mmol/L (21-32) 03/22/23 05:38 BUN 8 mg/dL (7-18) 03/22/23 05:38 Creatinine 0.53 mg/dL (0.55-1.02) L 03/22/23 05:38 Est GFR (MDRD) Af Amer > 60 (>60) 03/22/23 05:38 Est GFR (MDRD) Non-Af > 60 (>60) 03/22/23 05:38 Glucose 103 mg/dL (65-99) H 03/22/23 05:38 Calcium 9.0 mg/dL (8.5-10.1) 03/22/23 05:38 Corrected Calcium TNP 03/22/23 05:38 Magnesium 2.3 mg/dL (2.0-2.9) 03/22/23 05:38 Total Bilirubin 0.50 mg/dL (0.2-1.0) 03/22/23 05:38 AST 19 Units/L (15-37) 03/22/23 05:38 ALT 18 Units/L (12-78) 03/22/23 05:38 Alkaline Phosphatase 63 Units/L (46-116) 03/22/23 05:38 Troponin I High Sens 17.0 ng/L (4.0-60.0) 03/20/23 15:02 Total Protein 6.2 g/dL (6.4-8.2) L 03/22/23 05:38 Albumin 3.5 g/dL (3.4-5.0) 03/22/23 05:38 Globulin 2.7 g/dL (2.5-4.5) 03/22/23 05:38 Albumin/Globulin Ratio 1.3 Ratio (1.1-2.1) 03/22/23 05:38 Lipase 156 Units/L (73-393) 03/20/23 15:02 TSH 3rd Generation 1.603 uIU/mL (0.358-3.74) 03/20/23 15:02 Specimen Type Catherized urine 03/20/23 15:40 Urine Color Straw (YELLOW) 03/20/23 15:40 Urine Appearance Hazy (CLEAR) 03/20/23 15:40 Urine pH 8.0 (5.0 - 8.0) 03/20/23 15:40 Ur Specific [place] 1.015 (1.000-1.030) 03/20/23 15:40 Urine Protein Negative (NEGATIVE) 03/20/23 15:40 Urine Glucose (UA) Negative (NEGATIVE) 03/20/23 15:40 Urine Ketones Negative (NEGATIVE) 03/20/23 15:40 Urine Blood 1+ (NEGATIVE) 03/20/23 15:40 Urine Nitrite Negative (NEGATIVE) 03/20/23 15:40 Urine Bilirubin Negative (NEGATIVE) 03/20/23 15:40 Urine Urobilinogen Normal (NORMAL) 03/20/23 15:40 Ur Leukocyte Esterase 3+ (NEGATIVE) 03/20/23 15:40 Urine RBC 0-2 /HPF (0-3) 03/20/23 15:40 Urine WBC 10-20 /HPF (0-5) A 03/20/23 15:40 Ur Squamous Epith Cells Rare /HPF (NEGATIVE) 03/20/23 15:40 Urine Bacteria 1+ /HPF (NEGATIVE) 03/20/23 15:40 Urine Mucus Few /HPF (NEGATIVE) 03/20/23 15:40 Ur Culture Indicated? Yes/culture set up 03/20/23 15:40 Radiology Reviewed: Yes Plan (1) Acute hyponatremia: Status: Resolved Narrative Support Text: Patient's hyponatremia has resolved at this time. Plan: Normal saline IV hydration. Repeat CMP in a.m. (2) Acute UTI: Status: Acute Narrative Support Text: Patient's urine culture grew out [place] coli which is sensitive to Rocephin with JUSTA of less than 1. We need to go ahead and treat her for a few more days to make sure that we get this cleared up prior to her going home. She is still very weak and has trouble ambulating so we will obtain a physical therapy consult today so they can work with her over the next few days. Plan: Rocephin 1 g IV daily. Follow-up with urine culture and sensitivity when available. (3) Generalized weakness: Status: Acute Plan: We will obtain a physical therapy consult today so they can start therapy with her to increase her strength and mobility she is having a great difficulty getting around especially with her concurrent UTI. (4) Memory loss: Status: Acute Plan: Resume rivastigmine 1.5 mg p.o. twice daily. (5) Depression with anxiety: Status: Acute Plan: Monitor for worsening signs of depression and anxiety. (6) Chronic back pain: Status: Acute Plan: Tramadol as needed for pain. (7) Hypertension: Status: None Plan: Monitor daily blood pressures.
[2023-03-23] MEDS: RESTORIL CAP 15 MG PO SCH ×2 (00:03→20:40)
[2023-03-23 06:40] LABS: BASOPHILS # (AUTO) 0.1 X10^3/uL (0.0-0.1); BASOPHILS % (AUTO) 0.8 % (0.2-1.0); EOSINOPHILS # (AUTO) 0.2 x10^3/uL (0.0-0.2); EOSINOPHILS % (AUTO) 2.5 % (0.9-2.9); HEMATOCRIT 38.4 % (36.0-47.0); HEMOGLOBIN 13.3 g/dL (12.0-16.0); LYMPHOCYTES # (AUTO) 1.5 X10^3/uL (1.3-2.9); MEAN CORPUSCULAR HEMOGLOBIN 32.3 pg (27.0-34.0); MEAN CORPUSCULAR HGB CONC 34.6 g/dL (33.0-35.0); MEAN CORPUSCULAR VOLUME 93.2 fL (80.0-100.0); MEAN PLATELET VOLUME 7.1 fL (7.4-11.0); MONOCYTES # (AUTO) 0.4 x10^3/uL (0.3-0.8); NEUTROPHILS % (AUTO) 65.7 % (42.0-75.0); PLATELET COUNT 146 X10^3/uL (150.0-450.0); RED BLOOD COUNT 4.12 X10^6/uL (3.5-5.4); WHITE BLOOD COUNT 6.1 X10^3/uL (3.6-10.0)
[2023-03-23 07:07] LABS: ALANINE AMINOTRANSFERASE 22 Units/L (12-78); ALBUMIN 3.2 g/dL (3.4-5.0); ALKALINE PHOSPHATASE 55 Units/L (46-116); ASPARTATE AMINO TRANSFERASE 18 Units/L (15-37); BLOOD UREA NITROGEN 7 mg/dL (7-18); CALCIUM 8.4 mg/dL (8.5-10.1); CHLORIDE 103 mmol/L (98-107); CREATININE 0.47 mg/dL (0.55-1.02); GLUCOSE 93 mg/dL (65-99); POTASSIUM 3.8 mmol/L (3.5-5.1); SODIUM 137 mmol/L (136-145); TOTAL PROTEIN 5.7 g/dL (6.4-8.2); eGFR NON BLACK RACES > 60 (>60)
[2023-03-23] MEDS ORDERED: CONSULT PHARMACY - POTASSIUM & MAGNESIUM XX SCH (08:00)
[2023-03-23] MEDS ORDERED: K-DUR TAB 20 MEQ PO SCH (09:00)
[2023-03-23] MEDS: EXELON PO SCH ×2 (09:14→20:36)
[2023-03-23] MEDS: LOVENOX INJ 40 MG SYR SC SCH (09:14)
[2023-03-23] MEDS: MEGACE PO SCH ×2 (09:15→20:36)
[2023-03-23] MEDS: NS 500 ML IV 500 ML IV SCH ×6 (10:38→20:40)
[2023-03-23] MEDS: MIRALAX POWDER (1 DOSE 17 G) PO SCH (12:16)
[2023-03-23] MEDS: ROCEPHIN VIAL 1 GRAM 1 G in NS 100 ML IV 100 ML IV SCH (17:06)
--- NOTE | 2023-03-23 21:03 | PCM.PROG ---
Progress Note Progress Note for Day of Date of Exam: 03/23/23 Subjective Subjective: Patient seen at bedside, no events overnight. She is currently being treated for UTI. She reports being constipated. She takes colace at home but states it does not help as much. She wants to try miralax. She also has a pimentel. Labs/imaging - Hgb 13.3 K 3.8 - Urine Cx: E.coli - Tib/Fib: osteoarthritis Plan: continue IV Rocephin and hydration. Will give miralax. Continue current home medications. Remove pimentel when tolerated. PT/OT as tolerated. Monitor AM labs/imaging. Past Medical Family Social History Allergies: Allergies benzonatate [From Tessalon Perles] Allergy (Verified 03/14/23 13:57) meperidine [From Demerol] Allergy (Verified 03/14/23 13:57) Penicillins Allergy (Verified 03/14/23 13:57) rofecoxib [From Vioxx] Allergy (Verified 03/14/23 13:57) WATER PILLS Allergy (Uncoded 04/18/22 11:31) Review of Systems ROS: No change since H&P Vital Signs and I&O's Vital Signs: Vital Signs Temperature 97.8 F Temperature 97.1 F Pulse Rate [Brachial] 65 Pulse Rate [Brachial] 64 Respiratory Rate 20 Respiratory Rate 18 Blood Pressure [Left Arm] 109/53 Blood Pressure [Left Arm] 99/54 O2 Sat by Pulse Oximetry 97 O2 Sat by Pulse Oximetry 98 Intake and Output: Intake & Output 03/20/23 03/21/23 03/22/23 03/23/23 23:59 23:59 23:59 23:59 Intake Total 102 / 102 2599 / 2599 2557 / 2557 1938 / 1938 Output Total 1895 / 1895 1800 / 1800 2390 / 2390 Balance 102 / 102 704 / 704 757 / 757 -452 / -452 Physical Exam Oriented: Normal, Time, Person and Place Eyes: Normal Ear: Normal Nose: Normal Throat: Normal Respiratory: Normal Cardiovascular: Normal Auscultation: Bowel Sounds: Normal Tenderness: Normal Skin: Ecchymosis Musculoskeletal: Right and Leg Psychiatric: Anxiety and Depression; negative Normal or Agitation Mood Description: Calm Affect: Anxious; negative Angry, Depressed, Flat, Hysterical, Quiet or Violent Speech Pattern: Clear and Appropriate Laboratory and Diagnostics Result Diagrams: 03/23/23 05:36 03/23/23 05:36 Labs: 03/20/23 15:40 Urine,Catheterized Urine Culture - Final Escherichia Coli Laboratory WBC 6.1 X10^3/uL (3.6-10.0) 03/23/23 05:36 RBC 4.12 X10^6/uL (3.5-5.4) 03/23/23 05:36 Hgb 13.3 g/dL (12.0-16.0) 03/23/23 05:36 Hct 38.4 % (36.0-47.0) 03/23/23 05:36 MCV 93.2 fL (80.0-100.0) 03/23/23 05:36 MCH 32.3 pg (27.0-34.0) 03/23/23 05:36 MCHC 34.6 g/dL (33.0-35.0) 03/23/23 05:36 RDW 14.0 % (11.6-16.5) 03/23/23 05:36 Plt Count 146 X10^3/uL (150.0-450.0) L 03/23/23 05:36 MPV 7.1 fL (7.4-11.0) L 03/23/23 05:36 Neut % (Auto) 65.7 % (42.0-75.0) 03/23/23 05:36 Lymph % (Auto) 24.0 % (21.0-51.0) 03/23/23 05:36 [place] % (Auto) 7.0 % (0.0-13.0) 03/23/23 05:36 Eos % (Auto) 2.5 % (0.9-2.9) 03/23/23 05:36 Baso % (Auto) 0.8 % (0.2-1.0) 03/23/23 05:36 Neut # (Auto) 4.0 x10^3/uL (2.2-4.8) 03/23/23 05:36 Lymph # (Auto) 1.5 X10^3/uL (1.3-2.9) 03/23/23 05:36 [place] # (Auto) 0.4 x10^3/uL (0.3-0.8) 03/23/23 05:36 Eos # (Auto) 0.2 x10^3/uL (0.0-0.2) 03/23/23 05:36 Baso # (Auto) 0.1 X10^3/uL (0.0-0.1) 03/23/23 05:36 Absolute Nucleated RBC 0.0 /100WBC 03/23/23 05:36 Sodium 137 mmol/L (136-145) 03/23/23 05:36 Corrected Sodium TNP 03/23/23 05:36 Potassium 3.8 mmol/L (3.5-5.1) 03/23/23 05:36 Chloride 103 mmol/L (98-107) 03/23/23 05:36 Carbon Dioxide 25.0 mmol/L (21-32) 03/23/23 05:36 BUN 7 mg/dL (7-18) 03/23/23 05:36 Creatinine 0.47 mg/dL (0.55-1.02) L 03/23/23 05:36 Est GFR (MDRD) Af Amer > 60 (>60) 03/23/23 05:36 Est GFR (MDRD) Non-Af > 60 (>60) 03/23/23 05:36 Glucose 93 mg/dL (65-99) 03/23/23 05:36 Calcium 8.4 mg/dL (8.5-10.1) L 03/23/23 05:36 Corrected Calcium 9.0 mg/dL (8.5-10.1) 03/23/23 05:36 Magnesium 2.2 mg/dL (2.0-2.9) 03/23/23 05:36 Total Bilirubin 0.40 mg/dL (0.2-1.0) 03/23/23 05:36 AST 18 Units/L (15-37) 03/23/23 05:36 ALT 22 Units/L (12-78) 03/23/23 05:36 Alkaline Phosphatase 55 Units/L (46-116) 03/23/23 05:36 Troponin I High Sens 17.0 ng/L (4.0-60.0) 03/20/23 15:02 Total Protein 5.7 g/dL (6.4-8.2) L 03/23/23 05:36 Albumin 3.2 g/dL (3.4-5.0) L 03/23/23 05:36 Globulin 2.5 g/dL (2.5-4.5) 03/23/23 05:36 Albumin/Globulin Ratio 1.3 Ratio (1.1-2.1) 03/23/23 05:36 Lipase 156 Units/L (73-393) 03/20/23 15:02 TSH 3rd Generation 1.603 uIU/mL (0.358-3.74) 03/20/23 15:02 Specimen Type Catherized urine 03/20/23 15:40 Urine Color Straw (YELLOW) 03/20/23 15:40 Urine Appearance Hazy (CLEAR) 03/20/23 15:40 Urine pH 8.0 (5.0 - 8.0) 03/20/23 15:40 Ur Specific [place] 1.015 (1.000-1.030) 03/20/23 15:40 Urine Protein Negative (NEGATIVE) 03/20/23 15:40 Urine Glucose (UA) Negative (NEGATIVE) 03/20/23 15:40 Urine Ketones Negative (NEGATIVE) 03/20/23 15:40 Urine Blood 1+ (NEGATIVE) 03/20/23 15:40 Urine Nitrite Negative (NEGATIVE) 03/20/23 15:40 Urine Bilirubin Negative (NEGATIVE) 03/20/23 15:40 Urine Urobilinogen Normal (NORMAL) 03/20/23 15:40 Ur Leukocyte Esterase 3+ (NEGATIVE) 03/20/23 15:40 Urine RBC 0-2 /HPF (0-3) 03/20/23 15:40 Urine WBC 10-20 /HPF (0-5) A 03/20/23 15:40 Ur Squamous Epith Cells Rare /HPF (NEGATIVE) 03/20/23 15:40 Urine Bacteria 1+ /HPF (NEGATIVE) 03/20/23 15:40 Urine Mucus Few /HPF (NEGATIVE) 03/20/23 15:40 Ur Culture Indicated? Yes/culture set up 03/20/23 15:40 Plan (1) Acute hyponatremia: Status: Resolved (2) Acute UTI: Status: Acute (3) Generalized weakness: Status: Acute (4) Memory loss: Status: Acute (5) Depression with anxiety: Status: Acute (6) Chronic back pain: Status: Acute Plan: Tramadol as needed for pain. (7) Hypertension: Status: None Plan: Monitor daily blood pressures.
[2023-03-23] MEDS: NS 1,000 ML IV 1,000 ML IV SCH (23:38)
[2023-03-24] MEDS: LIORESAL PO PRN ×2 (02:02→20:04)
[2023-03-24] MEDS: TYLENOL 325 MG TAB PO PRN (02:57)
[2023-03-24 06:08] LABS: BASOPHILS % (AUTO) 0.6 % (0.2-1.0); EOSINOPHILS # (AUTO) 0.1 x10^3/uL (0.0-0.2); EOSINOPHILS % (AUTO) 2.2 % (0.9-2.9); HEMATOCRIT 39.1 % (36.0-47.0); HEMOGLOBIN 13.5 g/dL (12.0-16.0); LYMPHOCYTES # (AUTO) 1.6 X10^3/uL (1.3-2.9); LYMPHOCYTES % (AUTO) 24.8 % (21.0-51.0); MEAN CORPUSCULAR HEMOGLOBIN 32.4 pg (27.0-34.0); MEAN CORPUSCULAR HGB CONC 34.5 g/dL (33.0-35.0); MEAN PLATELET VOLUME 6.8 fL (7.4-11.0); MONOCYTES # (AUTO) 0.4 x10^3/uL (0.3-0.8); MONOCYTES % (AUTO) 5.9 % (0.0-13.0); NEUTROPHILS # (AUTO) 4.3 x10^3/uL (2.2-4.8); NEUTROPHILS % (AUTO) 66.5 % (42.0-75.0); PLATELET COUNT 147 X10^3/uL (150.0-450.0); RED BLOOD COUNT 4.16 X10^6/uL (3.5-5.4); RED CELL DISTRIBUTION WIDTH 14.5 % (11.6-16.5); WHITE BLOOD COUNT 6.5 X10^3/uL (3.6-10.0)
[2023-03-24 06:28] LABS: ALANINE AMINOTRANSFERASE 31 Units/L (12-78); ALBUMIN 3.4 g/dL (3.4-5.0); ALKALINE PHOSPHATASE 58 Units/L (46-116); ASPARTATE AMINO TRANSFERASE 23 Units/L (15-37); BLOOD UREA NITROGEN 6 mg/dL (7-18); CALCIUM 8.7 mg/dL (8.5-10.1); CHLORIDE 101 mmol/L (98-107); CREATININE 0.53 mg/dL (0.55-1.02); GLUCOSE 98 mg/dL (65-99); SODIUM 136 mmol/L (136-145); TOTAL PROTEIN 5.9 g/dL (6.4-8.2); eGFR NON BLACK RACES > 60 (>60)
[2023-03-24] MEDS: MEGACE PO SCH ×2 (08:48→20:05)
[2023-03-24] MEDS: LOVENOX INJ 40 MG SYR SC SCH (08:49)
[2023-03-24] MEDS: EXELON PO SCH ×2 (08:49→20:04)
[2023-03-24] MEDS: MIRALAX POWDER (1 DOSE 17 G) PO SCH (08:49)
--- NOTE | 2023-03-24 12:09 | PCM.PROG ---
Progress Note Progress Note for Day of Date of Exam: 03/24/23 Subjective Subjective: Patient seen at bedside, no events overnight. She is currently being treated for UTI. She did have a BM yesterday. She states she is feeling better today. Denies N/V. Labs/imaging - Hgb 13.5 K 4 - Urine Cx: E.coli - Tib/Fib: osteoarthritis Plan: continue IV Rocephin and hydration. Continue miralax. Remove pimentel. Continue current home medications. PT/OT as tolerated. Monitor AM labs/imaging. Past Medical Family Social History Allergies: Allergies benzonatate [From Tessalon Perles] Allergy (Verified 03/14/23 13:57) meperidine [From Demerol] Allergy (Verified 03/14/23 13:57) Penicillins Allergy (Verified 03/14/23 13:57) rofecoxib [From Vioxx] Allergy (Verified 03/14/23 13:57) WATER PILLS Allergy (Uncoded 04/18/22 11:31) Review of Systems ROS: No change since H&P Vital Signs and I&O's Vital Signs: Vital Signs Temperature 97.6 F Temperature 97.7 F Pulse Rate [Brachial] 69 Pulse Rate [Brachial] 67 Respiratory Rate 18 Respiratory Rate 20 Blood Pressure [Left Arm] 139/68 Blood Pressure [Left Arm] 118/58 O2 Sat by Pulse Oximetry 100 O2 Sat by Pulse Oximetry 97 Intake and Output: Intake & Output 03/21/23 03/22/23 03/23/23 03/24/23 23:59 23:59 23:59 23:59 Intake Total 2599 / 2599 2557 / 2557 4062 / 4062 776 / 776 Output Total 1895 / 1895 1800 / 1800 3030 / 3030 460 / 460 Balance 704 / 704 757 / 757 1032 / 1032 316 / 316 Physical Exam Oriented: Normal, Time, Person and Place Eyes: Normal Ear: Normal Nose: Normal Throat: Normal Respiratory: Normal Cardiovascular: Normal Auscultation: Bowel Sounds: Normal Tenderness: Normal Skin: Ecchymosis Musculoskeletal: Right and Leg Psychiatric: Anxiety and Depression; negative Normal or Agitation Mood Description: Calm Affect: Anxious; negative Angry, Depressed, Flat, Hysterical, Quiet or Violent Speech Pattern: Clear and Appropriate Laboratory and Diagnostics Result Diagrams: 03/24/23 05:26 07/16/23 05:26 Labs: 03/20/23 15:40 Urine,Catheterized Urine Culture - Final Escherichia Coli Laboratory WBC 6.5 X10^3/uL (3.6-10.0) 03/24/23 05:26 RBC 4.16 X10^6/uL (3.5-5.4) 03/24/23 05:26 Hgb 13.5 g/dL (12.0-16.0) 03/24/23 05:26 Hct 39.1 % (36.0-47.0) 03/24/23 05:26 MCV 94.0 fL (80.0-100.0) 03/24/23 05:26 MCH 32.4 pg (27.0-34.0) 03/24/23 05:26 MCHC 34.5 g/dL (33.0-35.0) 03/24/23 05:26 RDW 14.5 % (11.6-16.5) 03/24/23 05:26 Plt Count 147 X10^3/uL (150.0-450.0) L 03/24/23 05:26 MPV 6.8 fL (7.4-11.0) L 03/24/23 05:26 Neut % (Auto) 66.5 % (42.0-75.0) 03/24/23 05:26 Lymph % (Auto) 24.8 % (21.0-51.0) 03/24/23 05:26 [place] % (Auto) 5.9 % (0.0-13.0) 03/24/23 05:26 Eos % (Auto) 2.2 % (0.9-2.9) 03/24/23 05:26 Baso % (Auto) 0.6 % (0.2-1.0) 03/24/23 05:26 Neut # (Auto) 4.3 x10^3/uL (2.2-4.8) 03/24/23 05:26 Lymph # (Auto) 1.6 X10^3/uL (1.3-2.9) 03/24/23 05:26 [place] # (Auto) 0.4 x10^3/uL (0.3-0.8) 03/24/23 05:26 Eos # (Auto) 0.1 x10^3/uL (0.0-0.2) 03/24/23 05:26 Baso # (Auto) 0.0 X10^3/uL (0.0-0.1) 03/24/23 05:26 Absolute Nucleated RBC 0.0 /100WBC 03/24/23 05:26 Sodium 136 mmol/L (136-145) 03/24/23 05:26 Corrected Sodium TNP 03/24/23 05:26 Potassium 4.0 mmol/L (3.5-5.1) 03/24/23 05:26 Chloride 101 mmol/L (98-107) 03/24/23 05:26 Carbon Dioxide 26.0 mmol/L (21-32) 03/24/23 05:26 BUN 6 mg/dL (7-18) L 03/24/23 05:26 Creatinine 0.53 mg/dL (0.55-1.02) L 03/24/23 05:26 Est GFR (MDRD) Af Amer > 60 (>60) 03/24/23 05:26 Est GFR (MDRD) Non-Af > 60 (>60) 03/24/23 05:26 Glucose 98 mg/dL (65-99) 03/24/23 05:26 Calcium 8.7 mg/dL (8.5-10.1) 03/24/23 05:26 Corrected Calcium TNP 03/24/23 05:26 Magnesium 2.2 mg/dL (2.0-2.9) 03/23/23 05:36 Total Bilirubin 0.50 mg/dL (0.2-1.0) 03/24/23 05:26 AST 23 Units/L (15-37) 03/24/23 05:26 ALT 31 Units/L (12-78) 03/24/23 05:26 Alkaline Phosphatase 58 Units/L (46-116) 03/24/23 05:26 Troponin I High Sens 17.0 ng/L (4.0-60.0) 03/20/23 15:02 Total Protein 5.9 g/dL (6.4-8.2) L 03/24/23 05:26 Albumin 3.4 g/dL (3.4-5.0) 03/24/23 05:26 Globulin 2.5 g/dL (2.5-4.5) 03/24/23 05:26 Albumin/Globulin Ratio 1.4 Ratio (1.1-2.1) 03/24/23 05:26 Lipase 156 Units/L (73-393) 03/20/23 15:02 TSH 3rd Generation 1.603 uIU/mL (0.358-3.74) 03/20/23 15:02 Specimen Type Catherized urine 03/20/23 15:40 Urine Color Straw (YELLOW) 03/20/23 15:40 Urine Appearance Hazy (CLEAR) 03/20/23 15:40 Urine pH 8.0 (5.0 - 8.0) 03/20/23 15:40 Ur Specific [place] 1.015 (1.000-1.030) 03/20/23 15:40 Urine Protein Negative (NEGATIVE) 03/20/23 15:40 Urine Glucose (UA) Negative (NEGATIVE) 03/20/23 15:40 Urine Ketones Negative (NEGATIVE) 03/20/23 15:40 Urine Blood 1+ (NEGATIVE) 03/20/23 15:40 Urine Nitrite Negative (NEGATIVE) 03/20/23 15:40 Urine Bilirubin Negative (NEGATIVE) 03/20/23 15:40 Urine Urobilinogen Normal (NORMAL) 03/20/23 15:40 Ur Leukocyte Esterase 3+ (NEGATIVE) 03/20/23 15:40 Urine RBC 0-2 /HPF (0-3) 03/20/23 15:40 Urine WBC 10-20 /HPF (0-5) A 03/20/23 15:40 Ur Squamous Epith Cells Rare /HPF (NEGATIVE) 03/20/23 15:40 Urine Bacteria 1+ /HPF (NEGATIVE) 03/20/23 15:40 Urine Mucus Few /HPF (NEGATIVE) 03/20/23 15:40 Ur Culture Indicated? Yes/culture set up 03/20/23 15:40 Plan (1) Acute hyponatremia: Status: Resolved Plan: Normal saline IV hydration. Repeat CMP in a.m. (2) Acute UTI: Status: Acute (3) Generalized weakness: Status: Acute (4) Memory loss: Status: Acute (5) Depression with anxiety: Status: Acute (6) Chronic back pain: Status: Acute (7) Hypertension: Status: None Plan: Monitor daily blood pressures.
[2023-03-24] MEDS: ROCEPHIN VIAL 1 GRAM 1 G in NS 100 ML IV 100 ML IV SCH (15:47)
[2023-03-24] MEDS: NS 1,000 ML IV 1,000 ML IV SCH (15:47)
[2023-03-24] MEDS ORDERED: MIRALAX POWDER (1 DOSE 17 G) PO PRN (18:26)
[2023-03-25] MEDS: NS 1,000 ML IV 1,000 ML IV SCH ×5 (00:16→23:35)
[2023-03-25 06:27] LABS: BASOPHILS % (AUTO) 0.5 % (0.2-1.0); EOSINOPHILS # (AUTO) 0.2 x10^3/uL (0.0-0.2); EOSINOPHILS % (AUTO) 2.8 % (0.9-2.9); HEMATOCRIT 39.5 % (36.0-47.0); HEMOGLOBIN 13.7 g/dL (12.0-16.0); LYMPHOCYTES # (AUTO) 1.2 X10^3/uL (1.3-2.9); LYMPHOCYTES % (AUTO) 20.6 % (21.0-51.0); MEAN CORPUSCULAR HEMOGLOBIN 32.3 pg (27.0-34.0); MEAN CORPUSCULAR HGB CONC 34.6 g/dL (33.0-35.0); MEAN CORPUSCULAR VOLUME 93.4 fL (80.0-100.0); MEAN PLATELET VOLUME 6.8 fL (7.4-11.0); MONOCYTES # (AUTO) 0.4 x10^3/uL (0.3-0.8); NEUTROPHILS % (AUTO) 69.1 % (42.0-75.0); PLATELET COUNT 146 X10^3/uL (150.0-450.0); RED BLOOD COUNT 4.23 X10^6/uL (3.5-5.4); RED CELL DISTRIBUTION WIDTH 14.1 % (11.6-16.5); WHITE BLOOD COUNT 5.7 X10^3/uL (3.6-10.0)
[2023-03-25 06:50] LABS: ALANINE AMINOTRANSFERASE 36 Units/L (12-78); ALBUMIN 3.2 g/dL (3.4-5.0); ALKALINE PHOSPHATASE 56 Units/L (46-116); ASPARTATE AMINO TRANSFERASE 26 Units/L (15-37); BLOOD UREA NITROGEN 6 mg/dL (7-18); CALCIUM 8.5 mg/dL (8.5-10.1); CARBON DIOXIDE 24.9 mmol/L (21-32); CHLORIDE 102 mmol/L (98-107); COR CA(FOR HYPOALB) 9.1 mg/dL (8.5-10.1); CREATININE 0.51 mg/dL (0.55-1.02); GLUCOSE 99 mg/dL (65-99); POTASSIUM 3.8 mmol/L (3.5-5.1); SODIUM 136 mmol/L (136-145); TOTAL PROTEIN 5.8 g/dL (6.4-8.2); eGFR NON BLACK RACES > 60 (>60)
[2023-03-25] MEDS ORDERED: CONSULT PHARMACY - POTASSIUM & MAGNESIUM XX SCH (08:00)
[2023-03-25] MEDS ORDERED: ULTRAM PO PRN (08:36)
[2023-03-25] MEDS: MEGACE PO SCH ×2 (09:34→20:55)
[2023-03-25] MEDS: EXELON PO SCH ×2 (09:34→20:55)
[2023-03-25] MEDS: LOVENOX INJ 40 MG SYR SC SCH (09:34)
[2023-03-25] MEDS: TYLENOL 325 MG TAB PO PRN (09:38)
[2023-03-25] MEDS: PATIENT'S HOME MEDICATION PO SCH (10:44)
[2023-03-25] MEDS: ROCEPHIN VIAL 1 GRAM 1 G in NS 100 ML IV 100 ML IV SCH (16:40)
[2023-03-25] MEDS ORDERED: BUTT CREAM (COMPOUND) TOP PRN (19:52)
--- NOTE | 2023-03-25 19:57 | PCM.PROG ---
Progress Note Progress Note for Day of Date of Exam: 03/25/23 Subjective Subjective: The patient is alert and awake this morning. She is lying in bed comfortably. She has had no acute problems to the weekend or last night. She has been having bowel movements and she is covered appropriately with antibiotics for a urinary tract infection secondary to E. coli. We were hoping to get some physical therapy done this past weekend but they do not work on the weekend so we will have them work with her today and help get her up and see how she ambulates on her own and with assistance. I discussed temporary and permanent snf placement with the patient and she wants no part of either one. We will plan on keeping her another 1 possibly 2 days and see how she does with some physical therapy prior to discharging her back home. She may be interested she states in home physical therapy. She reports continued to have insomnia because so many nurses coming through the night checking on her. Past Medical Family Social History Allergies: Allergies benzonatate [From Tessalon Perles] Allergy (Verified 03/14/23 13:57) meperidine [From Demerol] Allergy (Verified 03/14/23 13:57) Penicillins Allergy (Verified 03/14/23 13:57) rofecoxib [From Vioxx] Allergy (Verified 03/14/23 13:57) WATER PILLS Allergy (Uncoded 04/18/22 11:31) Review of Systems ROS: No change since H&P Vital Signs and I&O's Vital Signs: Vital Signs Temperature 98.1 F Temperature 97.9 F Pulse Rate [Brachial] 76 Pulse Rate [Brachial] 65 Respiratory Rate 18 Respiratory Rate 20 Blood Pressure [Left Arm] 118/57 Blood Pressure [Left Arm] 132/59 O2 Sat by Pulse Oximetry 97 O2 Sat by Pulse Oximetry 97 Intake and Output: Intake & Output 03/23/23 03/24/23 03/25/23 03/26/23 11:59 11:59 11:59 11:59 Intake Total 2705 / 2705 3860 / 3860 4134 / 4134 1387 / 1387 Output Total 1690 / 1690 2600 / 2600 3100 / 3100 Balance 1015 / 1015 1260 / 1260 1034 / 1034 1387 / 1387 Physical Exam Oriented: Normal, Time, Person and Place Eyes: Normal Ear: Normal Nose: Normal Throat: Normal Respiratory: Normal Cardiovascular: Normal : Normal Auscultation: Bowel Sounds: Normal Tenderness: Normal Skin: Ecchymosis Musculoskeletal: Right and Leg Psychiatric: Anxiety and Depression; negative Normal or Agitation Mood Description: Calm Affect: Anxious; negative Angry, Depressed, Flat, Hysterical, Quiet or Violent Speech Pattern: Clear and Appropriate Laboratory and Diagnostics Result Diagrams: 03/25/23 06:05 03/25/23 06:05 Labs: 03/20/23 15:40 Urine,Catheterized Urine Culture - Final Escherichia Coli Laboratory WBC 5.7 X10^3/uL (3.6-10.0) 03/25/23 06:05 RBC 4.23 X10^6/uL (3.5-5.4) 03/25/23 06:05 Hgb 13.7 g/dL (12.0-16.0) 03/25/23 06:05 Hct 39.5 % (36.0-47.0) 03/25/23 06:05 MCV 93.4 fL (80.0-100.0) 03/25/23 06:05 MCH 32.3 pg (27.0-34.0) 03/25/23 06:05 MCHC 34.6 g/dL (33.0-35.0) 03/25/23 06:05 RDW 14.1 % (11.6-16.5) 03/25/23 06:05 Plt Count 146 X10^3/uL (150.0-450.0) L 03/25/23 06:05 MPV 6.8 fL (7.4-11.0) L 03/25/23 06:05 Neut % (Auto) 69.1 % (42.0-75.0) 03/25/23 06:05 Lymph % (Auto) 20.6 % (21.0-51.0) L 03/25/23 06:05 [place] % (Auto) 7.0 % (0.0-13.0) 03/25/23 06:05 Eos % (Auto) 2.8 % (0.9-2.9) 03/25/23 06:05 Baso % (Auto) 0.5 % (0.2-1.0) 03/25/23 06:05 Neut # (Auto) 4.0 x10^3/uL (2.2-4.8) 03/25/23 06:05 Lymph # (Auto) 1.2 X10^3/uL (1.3-2.9) L 03/25/23 06:05 [place] # (Auto) 0.4 x10^3/uL (0.3-0.8) 03/25/23 06:05 Eos # (Auto) 0.2 x10^3/uL (0.0-0.2) 03/25/23 06:05 Baso # (Auto) 0.0 X10^3/uL (0.0-0.1) 03/25/23 06:05 Absolute Nucleated RBC 0.0 /100WBC 03/25/23 06:05 Sodium 136 mmol/L (136-145) 03/25/23 06:05 Corrected Sodium TNP 03/25/23 06:05 Potassium 3.8 mmol/L (3.5-5.1) 03/25/23 06:05 Chloride 102 mmol/L (98-107) 03/25/23 06:05 Carbon Dioxide 24.9 mmol/L (21-32) 03/25/23 06:05 BUN 6 mg/dL (7-18) L 03/25/23 06:05 Creatinine 0.51 mg/dL (0.55-1.02) L 03/25/23 06:05 Est GFR (MDRD) Af Amer > 60 (>60) 03/25/23 06:05 Est GFR (MDRD) Non-Af > 60 (>60) 03/25/23 06:05 Glucose 99 mg/dL (65-99) 03/25/23 06:05 Calcium 8.5 mg/dL (8.5-10.1) 03/25/23 06:05 Corrected Calcium 9.1 mg/dL (8.5-10.1) 03/25/23 06:05 Magnesium 2.0 mg/dL (2.0-2.9) 03/25/23 06:05 Total Bilirubin 0.50 mg/dL (0.2-1.0) 03/25/23 06:05 AST 26 Units/L (15-37) 03/25/23 06:05 ALT 36 Units/L (12-78) 03/25/23 06:05 Alkaline Phosphatase 56 Units/L (46-116) 03/25/23 06:05 Troponin I High Sens 17.0 ng/L (4.0-60.0) 03/20/23 15:02 Total Protein 5.8 g/dL (6.4-8.2) L 03/25/23 06:05 Albumin 3.2 g/dL (3.4-5.0) L 03/25/23 06:05 Globulin 2.6 g/dL (2.5-4.5) 03/25/23 06:05 Albumin/Globulin Ratio 1.2 Ratio (1.1-2.1) 03/25/23 06:05 Lipase 156 Units/L (73-393) 03/20/23 15:02 TSH 3rd Generation 1.603 uIU/mL (0.358-3.74) 03/20/23 15:02 Specimen Type Catherized urine 03/20/23 15:40 Urine Color Straw (YELLOW) 03/20/23 15:40 Urine Appearance Hazy (CLEAR) 03/20/23 15:40 Urine pH 8.0 (5.0 - 8.0) 03/20/23 15:40 Ur Specific [place] 1.015 (1.000-1.030) 03/20/23 15:40 Urine Protein Negative (NEGATIVE) 03/20/23 15:40 Urine Glucose (UA) Negative (NEGATIVE) 03/20/23 15:40 Urine Ketones Negative (NEGATIVE) 03/20/23 15:40 Urine Blood 1+ (NEGATIVE) 03/20/23 15:40 Urine Nitrite Negative (NEGATIVE) 03/20/23 15:40 Urine Bilirubin Negative (NEGATIVE) 03/20/23 15:40 Urine Urobilinogen Normal (NORMAL) 03/20/23 15:40 Ur Leukocyte Esterase 3+ (NEGATIVE) 03/20/23 15:40 Urine RBC 0-2 /HPF (0-3) 03/20/23 15:40 Urine WBC 10-20 /HPF (0-5) A 03/20/23 15:40 Ur Squamous Epith Cells Rare /HPF (NEGATIVE) 03/20/23 15:40 Urine Bacteria 1+ /HPF (NEGATIVE) 03/20/23 15:40 Urine Mucus Few /HPF (NEGATIVE) 03/20/23 15:40 Ur Culture Indicated? Yes/culture set up 03/20/23 15:40 Plan (1) Generalized weakness: Status: Acute Narrative Support Text: No significant change. Plan: We will obtain a physical therapy consult today so they can start therapy with her to increase her strength and mobility. She is having a great difficulty getting around especially with her concurrent UTI. (2) Acute UTI: Status: Acute Narrative Support Text: UTI secondary to E. coli. It is sensitive to IV Rocephin. Plan: Rocephin 1 g IV daily. Follow-up with urine culture and sensitivity when available. (3) Memory loss: Status: Acute Plan: Resume rivastigmine 1.5 mg p.o. twice daily. (4) Depression with anxiety: Status: Acute Plan: I discussed starting the patient on a depression medication however she is very resistant to this and does not want anything at this time. (5) Chronic back pain: Status: Acute Plan: Tramadol as needed for pain. (6) Hypertension: Status: None Narrative Support Text: Blood pressure stable no changes at this time. Plan: Monitor daily blood pressures. (7) Acute hyponatremia: Status: Resolved Narrative Support Text: Patient's hyponatremia has resolved since admission. Plan: Normal saline IV hydration. Repeat CMP in a.m.
[2023-03-26] MEDS: NS 1,000 ML IV 1,000 ML IV SCH ×4 (04:20→23:49)
[2023-03-26 06:29] LABS: BASOPHILS % (AUTO) 0.5 % (0.2-1.0); EOSINOPHILS # (AUTO) 0.1 x10^3/uL (0.0-0.2); EOSINOPHILS % (AUTO) 1.8 % (0.9-2.9); HEMATOCRIT 39.4 % (36.0-47.0); HEMOGLOBIN 13.6 g/dL (12.0-16.0); LYMPHOCYTES # (AUTO) 1.5 X10^3/uL (1.3-2.9); LYMPHOCYTES % (AUTO) 25.7 % (21.0-51.0); MEAN CORPUSCULAR HEMOGLOBIN 32.3 pg (27.0-34.0); MEAN CORPUSCULAR HGB CONC 34.6 g/dL (33.0-35.0); MEAN CORPUSCULAR VOLUME 93.3 fL (80.0-100.0); MEAN PLATELET VOLUME 6.8 fL (7.4-11.0); MONOCYTES # (AUTO) 0.4 x10^3/uL (0.3-0.8); MONOCYTES % (AUTO) 7.8 % (0.0-13.0); NEUTROPHILS # (AUTO) 3.7 x10^3/uL (2.2-4.8); NEUTROPHILS % (AUTO) 64.2 % (42.0-75.0); PLATELET COUNT 158 X10^3/uL (150.0-450.0); RED BLOOD COUNT 4.22 X10^6/uL (3.5-5.4); RED CELL DISTRIBUTION WIDTH 14.2 % (11.6-16.5); WHITE BLOOD COUNT 5.7 X10^3/uL (3.6-10.0)
[2023-03-26 06:55] LABS: ALANINE AMINOTRANSFERASE 45 Units/L (12-78); ALBUMIN 3.3 g/dL (3.4-5.0); ALKALINE PHOSPHATASE 57 Units/L (46-116); ASPARTATE AMINO TRANSFERASE 32 Units/L (15-37); BLOOD UREA NITROGEN 6 mg/dL (7-18); CALCIUM 8.5 mg/dL (8.5-10.1); CARBON DIOXIDE 25.5 mmol/L (21-32); CHLORIDE 99 mmol/L (98-107); COR CA(FOR HYPOALB) 9.1 mg/dL (8.5-10.1); CREATININE 0.52 mg/dL (0.55-1.02); GLUCOSE 98 mg/dL (65-99); POTASSIUM 3.6 mmol/L (3.5-5.1); SODIUM 134 mmol/L (136-145); TOTAL PROTEIN 5.9 g/dL (6.4-8.2); eGFR NON BLACK RACES > 60 (>60)
[2023-03-26] MEDS ORDERED: CONSULT PHARMACY - POTASSIUM & MAGNESIUM XX SCH (08:00)
[2023-03-26] MEDS: EXELON PO SCH ×2 (09:50→21:07)
[2023-03-26] MEDS: K-DUR TAB 20 MEQ PO SCH (09:50)
[2023-03-26] MEDS: MEGACE PO SCH ×2 (09:50→21:09)
[2023-03-26] MEDS: TYLENOL 325 MG TAB PO PRN (09:51)
[2023-03-26] MEDS: PATIENT'S HOME MEDICATION PO SCH (09:51)
[2023-03-26] MEDS: LOVENOX INJ 40 MG SYR SC SCH (09:51)
[2023-03-26] MEDS: ROCEPHIN VIAL 1 GRAM 1 G in NS 100 ML IV 100 ML IV SCH (15:45)
--- NOTE | 2023-03-26 21:54 | PCM.PROG ---
Progress Note Progress Note for Day of Date of Exam: 03/26/23 Subjective Subjective: The patient is alert and awake this morning. She is lying in bed comfortably. She has had no acute problems to the weekend or last night. She has been having bowel movements and she is covered appropriately with antibiotics for a urinary tract infection secondary to E. coli. sap project manager was discussing with the patient yesterday afternoon and she finally agreed to [facility] placement at [facility] for temporary inpatient rehabilitation. Today we are starting to work on that but they said it might be 2 or 3 days before they can get her room and get her into it wants to get everything precertified. In the meantime we will continue IV antibiotics for her bacteriuria. She did not quite meet the criteria for a full UTI because she had greater than 50,000 colony-forming units but less than 100,000 colony- forming units, however she was positive for E. coli so we are treating her for this as the same. Past Medical Family Social History Allergies: Allergies benzonatate [From Tessalon Perles] Allergy (Verified 03/14/23 13:57) meperidine [From Demerol] Allergy (Verified 03/14/23 13:57) Penicillins Allergy (Verified 03/14/23 13:57) rofecoxib [From Vioxx] Allergy (Verified 03/14/23 13:57) WATER PILLS Allergy (Uncoded 04/18/22 11:31) Review of Systems ROS: No change since H&P Vital Signs and I&O's Vital Signs: Vital Signs Temperature 98.1 F Temperature 97.8 F Pulse Rate [Brachial] 74 Pulse Rate [Brachial] 85 Respiratory Rate 18 Respiratory Rate 18 Blood Pressure [Left Arm] 118/57 Blood Pressure [Right Arm] 134/74 O2 Sat by Pulse Oximetry 100 O2 Sat by Pulse Oximetry 97 Intake and Output: Intake & Output 03/24/23 03/25/23 03/26/23 03/27/23 11:59 11:59 11:59 11:59 Intake Total 3860 / 3860 4134 / 4134 2655 / 2655 974 / 974 Output Total 2600 / 2600 3100 / 3100 Balance 1260 / 1260 1034 / 1034 2655 / 2655 974 / 974 Physical Exam Oriented: Normal, Time, Person and Place Eyes: Normal Ear: Normal Nose: Normal Throat: Normal Respiratory: Normal Cardiovascular: Normal : Normal Auscultation: Bowel Sounds: Normal Tenderness: Normal Skin: Ecchymosis Musculoskeletal: Right and Leg Psychiatric: Anxiety and Depression; negative Normal or Agitation Mood Description: Calm Affect: Anxious; negative Angry, Depressed, Flat, Hysterical, Quiet or Violent Speech Pattern: Clear and Appropriate Laboratory and Diagnostics Result Diagrams: 03/26/23 05:42 03/26/23 05:42 Labs: 03/20/23 15:40 Urine,Catheterized Urine Culture - Final Escherichia Coli Laboratory WBC 5.7 X10^3/uL (3.6-10.0) 03/26/23 05:42 RBC 4.22 X10^6/uL (3.5-5.4) 03/26/23 05:42 Hgb 13.6 g/dL (12.0-16.0) 03/26/23 05:42 Hct 39.4 % (36.0-47.0) 03/26/23 05:42 MCV 93.3 fL (80.0-100.0) 03/26/23 05:42 MCH 32.3 pg (27.0-34.0) 03/26/23 05:42 MCHC 34.6 g/dL (33.0-35.0) 03/26/23 05:42 RDW 14.2 % (11.6-16.5) 03/26/23 05:42 Plt Count 158 X10^3/uL (150.0-450.0) 03/26/23 05:42 MPV 6.8 fL (7.4-11.0) L 03/26/23 05:42 Neut % (Auto) 64.2 % (42.0-75.0) 03/26/23 05:42 Lymph % (Auto) 25.7 % (21.0-51.0) 03/26/23 05:42 [place] % (Auto) 7.8 % (0.0-13.0) 03/26/23 05:42 Eos % (Auto) 1.8 % (0.9-2.9) 03/26/23 05:42 Baso % (Auto) 0.5 % (0.2-1.0) 03/26/23 05:42 Neut # (Auto) 3.7 x10^3/uL (2.2-4.8) 03/26/23 05:42 Lymph # (Auto) 1.5 X10^3/uL (1.3-2.9) 03/26/23 05:42 [place] # (Auto) 0.4 x10^3/uL (0.3-0.8) 03/26/23 05:42 Eos # (Auto) 0.1 x10^3/uL (0.0-0.2) 03/26/23 05:42 Baso # (Auto) 0.0 X10^3/uL (0.0-0.1) 03/26/23 05:42 Absolute Nucleated RBC 0.0 /100WBC 03/26/23 05:42 Sodium 134 mmol/L (136-145) L 03/26/23 05:42 Corrected Sodium TNP 03/26/23 05:42 Potassium 3.6 mmol/L (3.5-5.1) 03/26/23 05:42 Chloride 99 mmol/L (98-107) 03/26/23 05:42 Carbon Dioxide 25.5 mmol/L (21-32) 03/26/23 05:42 BUN 6 mg/dL (7-18) L 03/26/23 05:42 Creatinine 0.52 mg/dL (0.55-1.02) L 03/26/23 05:42 Est GFR (MDRD) Af Amer > 60 (>60) 03/26/23 05:42 Est GFR (MDRD) Non-Af > 60 (>60) 03/26/23 05:42 Glucose 98 mg/dL (65-99) 03/26/23 05:42 Calcium 8.5 mg/dL (8.5-10.1) 03/26/23 05:42 Corrected Calcium 9.1 mg/dL (8.5-10.1) 03/26/23 05:42 Magnesium 2.0 mg/dL (2.0-2.9) 03/26/23 05:42 Total Bilirubin 0.60 mg/dL (0.2-1.0) 03/26/23 05:42 AST 32 Units/L (15-37) 03/26/23 05:42 ALT 45 Units/L (12-78) 03/26/23 05:42 Alkaline Phosphatase 57 Units/L (46-116) 03/26/23 05:42 Troponin I High Sens 17.0 ng/L (4.0-60.0) 03/20/23 15:02 Total Protein 5.9 g/dL (6.4-8.2) L 03/26/23 05:42 Albumin 3.3 g/dL (3.4-5.0) L 03/26/23 05:42 Globulin 2.6 g/dL (2.5-4.5) 03/26/23 05:42 Albumin/Globulin Ratio 1.3 Ratio (1.1-2.1) 03/26/23 05:42 Lipase 156 Units/L (73-393) 03/20/23 15:02 TSH 3rd Generation 1.603 uIU/mL (0.358-3.74) 03/20/23 15:02 Specimen Type Catherized urine 03/20/23 15:40 Urine Color Straw (YELLOW) 03/20/23 15:40 Urine Appearance Hazy (CLEAR) 03/20/23 15:40 Urine pH 8.0 (5.0 - 8.0) 03/20/23 15:40 Ur Specific [place] 1.015 (1.000-1.030) 03/20/23 15:40 Urine Protein Negative (NEGATIVE) 03/20/23 15:40 Urine Glucose (UA) Negative (NEGATIVE) 03/20/23 15:40 Urine Ketones Negative (NEGATIVE) 03/20/23 15:40 Urine Blood 1+ (NEGATIVE) 03/20/23 15:40 Urine Nitrite Negative (NEGATIVE) 03/20/23 15:40 Urine Bilirubin Negative (NEGATIVE) 03/20/23 15:40 Urine Urobilinogen Normal (NORMAL) 03/20/23 15:40 Ur Leukocyte Esterase 3+ (NEGATIVE) 03/20/23 15:40 Urine RBC 0-2 /HPF (0-3) 03/20/23 15:40 Urine WBC 10-20 /HPF (0-5) A 03/20/23 15:40 Ur Squamous Epith Cells Rare /HPF (NEGATIVE) 03/20/23 15:40 Urine Bacteria 1+ /HPF (NEGATIVE) 03/20/23 15:40 Urine Mucus Few /HPF (NEGATIVE) 03/20/23 15:40 Ur Culture Indicated? Yes/culture set up 03/20/23 15:40 Plan (1) Generalized weakness: Status: Acute Plan: We will obtain a physical therapy consult today so they can start therapy with her to increase her strength and mobility. She is having a great difficulty getting around especially with her concurrent UTI. We have started working on getting the patient transferred to [facility] for temporary inpatient rehabilitation. We have been informed by the [facility] that this may take 2 or 3 days to get everything certified and get her transferred over. (2) Acute UTI: Status: Acute Narrative Support Text: Patient does not actually have an acute urinary tract infection because her CFU's were greater than 50,000 but less than 100,000. However she did grow E. coli on culture. Plan: Rocephin 1 g IV daily. Follow-up with urine culture and sensitivity when available. (3) Memory loss: Status: Acute Plan: Resume rivastigmine 1.5 mg p.o. twice daily. (4) Depression with anxiety: Status: Acute Plan: I discussed starting the patient on a depression medication however she is very resistant to this and does not want anything at this time. (5) Chronic back pain: Status: Acute Plan: Tramadol as needed for pain. (6) Hypertension: Status: None Plan: Monitor daily blood pressures. (7) Acute hyponatremia: Status: Resolved Plan: Normal saline IV hydration. Repeat CMP in a.m. (8) Bacteriuria: Status: Acute Plan: We will continue patient on IV Rocephin as long she is in the hospital. Once she is discharged/transferred to [facility] we will convert her over to p.o. antibiotics to make sure that this E. coli is treated and she is at high risk for falling and we do not want her to get a UTI and increased risk of her falling.
[2023-03-26 22:47] VITALS: RESP 20
[2023-03-27 05:20] VITALS: BP 159/70
[2023-03-27] MEDS: NS 1,000 ML IV 1,000 ML IV SCH (05:57)
[2023-03-27 06:44] LABS: BASOPHILS % (AUTO) 0.7 % (0.2-1.0); EOSINOPHILS # (AUTO) 0.1 x10^3/uL (0.0-0.2); EOSINOPHILS % (AUTO) 2.4 % (0.9-2.9); HEMOGLOBIN 13.6 g/dL (12.0-16.0); LYMPHOCYTES # (AUTO) 1.5 X10^3/uL (1.3-2.9); LYMPHOCYTES % (AUTO) 26.7 % (21.0-51.0); MEAN CORPUSCULAR HEMOGLOBIN 32.7 pg (27.0-34.0); MEAN CORPUSCULAR VOLUME 93.2 fL (80.0-100.0); MONOCYTES # (AUTO) 0.5 x10^3/uL (0.3-0.8); MONOCYTES % (AUTO) 8.6 % (0.0-13.0); NEUTROPHILS # (AUTO) 3.6 x10^3/uL (2.2-4.8); NEUTROPHILS % (AUTO) 61.6 % (42.0-75.0); PLATELET COUNT 163 X10^3/uL (150.0-450.0); RED BLOOD COUNT 4.18 X10^6/uL (3.5-5.4); RED CELL DISTRIBUTION WIDTH 14.3 % (11.6-16.5); WHITE BLOOD COUNT 5.8 X10^3/uL (3.6-10.0)
[2023-03-27 06:50] LABS: ALANINE AMINOTRANSFERASE 38 Units/L (12-78); ALBUMIN 3.3 g/dL (3.4-5.0); ALKALINE PHOSPHATASE 56 Units/L (46-116); ASPARTATE AMINO TRANSFERASE 23 Units/L (15-37); BLOOD UREA NITROGEN 6 mg/dL (7-18); CALCIUM 8.6 mg/dL (8.5-10.1); CARBON DIOXIDE 26.4 mmol/L (21-32); CHLORIDE 100 mmol/L (98-107); COR CA(FOR HYPOALB) 9.2 mg/dL (8.5-10.1); CREATININE 0.54 mg/dL (0.55-1.02); GLUCOSE 101 mg/dL (65-99); POTASSIUM 3.8 mmol/L (3.5-5.1); SODIUM 135 mmol/L (136-145); TOTAL PROTEIN 5.9 g/dL (6.4-8.2); eGFR NON BLACK RACES > 60 (>60)
[2023-03-27] MEDS ORDERED: CONSULT PHARMACY - POTASSIUM & MAGNESIUM XX SCH (08:00)
[2023-03-27] MEDS: K-DUR TAB 20 MEQ PO SCH (08:40)
[2023-03-27] MEDS: EXELON PO SCH (08:40)
[2023-03-27] MEDS: LOVENOX INJ 40 MG SYR SC SCH (08:41)
[2023-03-27] MEDS: MEGACE PO SCH (08:41)
[2023-03-27] MEDS: PATIENT'S HOME MEDICATION PO SCH (08:42)
[2023-03-27 09:38] VITALS: PULSE 69; TEMP 98; O2SAT 96
[2023-03-27] MEDS ORDERED: COLACE CAP 100 MG PO SCH (21:00)
== END 2023-03-27 11:15 | DRG 690 ==
LOC: MED/SURG 14:33 → ER 14:33 → MED/SURG 17:20
PROVIDERS: ADMIT Family Medicine; ATTEND Family Medicine
DX: N39.0 Urinary tract infection, site not specified; M54.89 Other dorsalgia; B96.29 Other Escherichia coli [E. coli] as the cause of diseases classified elsewhere; E87.1 Hypo-osmolality and hyponatremia; R60.0 Localized edema; R41.3 Other amnesia; K59.09 Other constipation; M25.561 Pain in right knee; R06.02 Shortness of breath; R26.89 Other abnormalities of gait and mobility

== ENCOUNTER 2023-06-02 19:35 | Inpatient (IN) ==
[2023-06-02] MEDS ORDERED: NS 1,000 ML IV 1,000 ML ONE (19:49)
--- NOTE | 2023-06-02 19:51 | DR.FBACK ---
HPI Time Seen Time Seen by Provider: 06/02/23 19:44 PCP Primary Care Physician: TRINI Complaint Chief Complaint Doctor Comments: 87 y/o female brought in via EMS for back pain. Pt has a h/o chronic back issues. Has had worsening pain over the past week. + excruciating tonight. Located low back, does not radiate. + worse with minimal ROM. Denies recent trauma. No fever, chills, URI symptoms, bladder complaints. Has been constipated over the past few days, having lower abd discomfort. No nausea, vomiting. Pt is a relative of Dr Ventura's, and he called ahead to say he will admit her. Chief Complaint:: PT IN ED VIA STRETCHER PER [facility] WITH C/O INCREASED BACK PAIN X 1 WEEK. COVID-19 Coronavirus risk:travel/contact w/high risk person: No Has patient experienced Coronavirus symptoms: No Reviewed Nurses Notes Review: Yes Source History Provided: Patient and EMS Mode of Arrival Mode of Arrival: Stretcher Timing Onset of Chief Complaint: 05/26/23 PMH PMH Past Medical History: Yes Past Medical History: Anxiety, Depression, GERD and Hypertension Past Medical History Comment: CHRONIC BACK PAIN LYMPH EDEMA Past Surgical History: Yes Surgical History: Cholecystectomy and Tonsillectomy Family History History of Family Medical Conditions: Yes Family Medical History: Diabetes Mellitus Social History Does patient currently use any type of tobacco product: No Have you used tobacco products in the last 12 months: No Type of Tobacco Use: None Does any household member use tobacco: No Alcohol Use: None Do you use any recreational Drugs:: No Lives With: Family Lives Where: Home Travel Risk Coronavirus risk:travel/contact w/high risk person: No Has patient experienced Coronavirus symptoms: No Infectious screening In the last 2 months have you had wt loss of >10#?: NO Have you had fever, night sweats or hemotysis?: No Have you traveled outside the country in the last 6 months?: No Isolation: Standard ROS Review of Systems Constitutional: No Symptoms Reported Eyes: No Symptoms Reported ENTM: No Symptoms Reported Respiratoy: No Symptoms Reported Cardiovascular: No Symptoms Reported Gastrointestinal/Abdominal: No Symptoms Reported Genitourinary: No Symptoms Reported Neurological: No Symptoms Reported Musculoskeletal: See HPI Integumentary: No Symptoms Reported All Other Systems: Reviewed and Negative PE Vitals Vital Signs: Temp Pulse Resp BP Pulse Ox O2 Del Method 06/02/23 19:35 98.1 F 78 20 121/73 95 Room Air General General Appearance: Alert, In No Apparent Distress and In Distress (with minimal movement of low back. ) Head Head Exam: Normal Inspection, Atraumatic and Normocephalic ENT ENT Exam: Normal Oropharynx and Mucous Membranes Moist Respiratory Respiratory Exam: Normal Lung Sounds Bilat; negative Accessory Muscle Use or Respiratory Distress Cardiovascular Cardiovascular Exam: Regular Rate, Normal Rhythm and Normal Heart Sounds Abdominal Exam Abdominal Exam: Normal Bowel Sounds, Soft and Tenderness (mild R side, no g uarding or rebound. ) Extremities Extremities Exam: Edema (of RLE > LLE (ongoing for few weeks, h/o negative Doppler). ) Back Back Exam: Other (pain with minimal low back movement. + bilateral straight leg raising pain, L > R. Distal NV intact of lower exts.) Neurological Neurological Exam: Alert, Oriented X3 and CN II-XII Intact; negative Motor Sen justa Deficit COURSE Treatment Treatment: 87 y/o female with worsening , intractable back pain, despite outpatient treatment. Baseline labs to be obtained, will admit to Dr Ventura as per his request. ROR Labs Reviewed 06/02/23 19:55 06/02/23 19:55 Opioid Opioid Risk Tool Age (Nithin box if 16-45): No History of Preadolescent Sexual Abuse: No Total: 0 Total Score Risk Category: Low Risk Copyright: Joby RUST predicting aberrant behaviors Discharge Plan Diagnosis Discharge Problem: Intractable low back pain Discharge Plan Patient Disposition: 09 ADMITTED INPATIENT Condition: Stable Prescriptions: No Action tramadol 50 mg tablet 50 mg PO Q6H MDD 4 tablets PRN (Reason: pain) 30 Days Qty: 120 0RF rivastigmine tartrate 1.5 mg Capsule 1.5 mg PO BID Qty: 60 0RF acetaminophen [Tylenol] 325 mg Tablet 650 mg PO Q6H PRN (Reason: fever or pain) Qty: 90 3RF acetaminophen [Tylenol Ex Str Arthritis Pain] 500 mg Tablet 1,000 mg PO Q6H PRN Health Concerns: Post Hospitalization: new medications and changes needed to prevent readmission or further decline. Pt educated and given instructions on all concerns. Plan of Treatment: Continue with present treatment and follow up plan. Pt is to keep follow up appointment as instructed and take medications as ordered. Orders to Discharge Patient Discharge Orders: Transfer (Routine); Ordered 06/02/23 Ordered By: Andrew Alonzo Follow ups/Referrals Follow ups/Referrals: LE VENTURA [Primary Care Provider] - 3 days
[2023-06-02] MEDS: NS 1,000 ML IV 1,000 ML IV SCH (19:54)
[2023-06-02 20:04] LABS: BASOPHILS # (AUTO) 0.1 X10^3/uL (0.0-0.1); BASOPHILS % (AUTO) 1.4 % (0.2-1.0); EOSINOPHILS # (AUTO) 0.1 x10^3/uL (0.0-0.2); HEMATOCRIT 37.2 % (36.0-47.0); HEMOGLOBIN 12.9 g/dL (12.0-16.0); LYMPHOCYTES # (AUTO) 1.8 X10^3/uL (1.3-2.9); LYMPHOCYTES % (AUTO) 28.1 % (21.0-51.0); MEAN CORPUSCULAR HEMOGLOBIN 32.4 pg (27.0-34.0); MEAN CORPUSCULAR HGB CONC 34.7 g/dL (33.0-35.0); MEAN CORPUSCULAR VOLUME 93.5 fL (80.0-100.0); MEAN PLATELET VOLUME 6.6 fL (7.4-11.0); MONOCYTES # (AUTO) 0.5 x10^3/uL (0.3-0.8); MONOCYTES % (AUTO) 8.5 % (0.0-13.0); NEUTROPHILS # (AUTO) 3.8 x10^3/uL (2.2-4.8); PLATELET COUNT 190 X10^3/uL (150.0-450.0); RED BLOOD COUNT 3.98 X10^6/uL (3.5-5.4); RED CELL DISTRIBUTION WIDTH 14.1 % (11.6-16.5); WHITE BLOOD COUNT 6.4 X10^3/uL (3.6-10.0)
[2023-06-02] MEDS ORDERED: CONSULT PHARMACY - POTASSIUM & MAGNESIUM XX SCH (20:08)
[2023-06-02 20:17] LABS: ALANINE AMINOTRANSFERASE < 6 Units/L (12-78); ALBUMIN 3.5 g/dL (3.4-5.0); ALKALINE PHOSPHATASE 76 Units/L (46-116); ASPARTATE AMINO TRANSFERASE 18 Units/L (15-37); BLOOD UREA NITROGEN 17 mg/dL (7-18); CALCIUM 8.8 mg/dL (8.5-10.1); CARBON DIOXIDE 28.2 mmol/L (21-32); CHLORIDE 95 mmol/L (98-107); CREATININE 0.75 mg/dL (0.55-1.02); GLUCOSE 105 mg/dL (65-99); LIPASE 77 Units/L (73-393); POTASSIUM 4.2 mmol/L (3.5-5.1); SODIUM 128 mmol/L (136-145); eGFR NON BLACK RACES > 60 (>60)
[2023-06-02] MEDS ORDERED: EXELON PO SCH (21:00)
[2023-06-02] MEDS ORDERED: ULTRAM ONE (21:06)
[2023-06-02] MEDS: ULTRAM PO PRN (21:11)
[2023-06-02 22:10] VITALS: BMI 27.0
[2023-06-02 22:14] LABS: BILIRUBIN,URINE NEGATIVE (NEGATIVE); BLOOD/HEMOGLOBIN,URINE NEGATIVE (NEGATIVE); GLUCOSE, URINE NEGATIVE (NEGATIVE); KETONES,URINE NEGATIVE (NEGATIVE); LEUKOCYTE ESTERASE ,URINE NEGATIVE (NEGATIVE); NITRITES,URINE NEGATIVE (NEGATIVE); PROTEIN,URINE NEGATIVE (NEGATIVE); UROBILINOGEN,URINE NORMAL (NORMAL)
[2023-06-02 22:17] LABS: APPEARANCE,URINE CLEAR (CLEAR); COLOR,URINE STRAW (YELLOW)
--- NOTE | 2023-06-02 23:01 | RAD ---
EXAM:KUBHISTORY:ABD Pain, ABD. Distention.; INTRACTABLE BACK PAINCOMPARISON:No relevant prior studies available.TECHNIQUE:AP supine projection, 2 imagesFINDINGS:Gas and stool in non-distended colon.No gross free air.No abnormal calcifications.No acute osseous abnormality.IMPRESSION:No acute intra-abdominal abnormality detected.THIS IS AN ELECTRONICALLY VERIFIED FINAL REPORT06/02/2023 10:58 PM - Electronically signed by Rogelio Wakefield MD
[2023-06-03 06:09] LABS: BASOPHILS # (AUTO) 0.1 X10^3/uL (0.0-0.1); BASOPHILS % (AUTO) 0.9 % (0.2-1.0); EOSINOPHILS # (AUTO) 0.2 x10^3/uL (0.0-0.2); EOSINOPHILS % (AUTO) 3.3 % (0.9-2.9); HEMATOCRIT 36.4 % (36.0-47.0); HEMOGLOBIN 12.5 g/dL (12.0-16.0); LYMPHOCYTES # (AUTO) 1.8 X10^3/uL (1.3-2.9); LYMPHOCYTES % (AUTO) 28.8 % (21.0-51.0); MEAN CORPUSCULAR HEMOGLOBIN 32.4 pg (27.0-34.0); MEAN CORPUSCULAR HGB CONC 34.4 g/dL (33.0-35.0); MEAN CORPUSCULAR VOLUME 94.1 fL (80.0-100.0); MEAN PLATELET VOLUME 7.1 fL (7.4-11.0); MONOCYTES # (AUTO) 0.6 x10^3/uL (0.3-0.8); MONOCYTES % (AUTO) 9.6 % (0.0-13.0); NEUTROPHILS # (AUTO) 3.5 x10^3/uL (2.2-4.8); NEUTROPHILS % (AUTO) 57.4 % (42.0-75.0); PLATELET COUNT 204 X10^3/uL (150.0-450.0); RED BLOOD COUNT 3.86 X10^6/uL (3.5-5.4); RED CELL DISTRIBUTION WIDTH 13.8 % (11.6-16.5); WHITE BLOOD COUNT 6.1 X10^3/uL (3.6-10.0)
[2023-06-03] MEDS: ULTRAM PO PRN ×3 (06:29→19:09)
[2023-06-03 06:34] LABS: ALBUMIN 3.3 g/dL (3.4-5.0); ALKALINE PHOSPHATASE 70 Units/L (46-116); ASPARTATE AMINO TRANSFERASE 20 Units/L (15-37); BLOOD UREA NITROGEN 11 mg/dL (7-18); CALCIUM 8.7 mg/dL (8.5-10.1); CARBON DIOXIDE 30.6 mmol/L (21-32); CHLORIDE 101 mmol/L (98-107); COR CA(FOR HYPOALB) 9.3 mg/dL (8.5-10.1); CREATININE 0.59 mg/dL (0.55-1.02); GLUCOSE 90 mg/dL (65-99); POTASSIUM 4.7 mmol/L (3.5-5.1); SODIUM 135 mmol/L (136-145); TOTAL PROTEIN 6.6 g/dL (6.4-8.2); eGFR NON BLACK RACES > 60 (>60)
[2023-06-03 07:48] LABS: ALANINE AMINOTRANSFERASE 19 Units/L (12-78)
[2023-06-03] MEDS: EXELON PO SCH (08:29)
[2023-06-03] MEDS: NS 1,000 ML IV 1,000 ML IV SCH ×2 (08:30→21:07)
[2023-06-03] MEDS ORDERED: LINZESS PO SCH (09:00)
[2023-06-03] MEDS: DURAGESIC 12 MCG/HR PATCH TD SCH (09:01)
--- NOTE | 2023-06-03 10:09 | CT ---
HISTORYSEVERE MID AND LOW BACK PAINSTUDYTHORACIC SPINE W/O CONCOMPARISONnoneTECHNIQUEAxial images through the thoracic spine was performed without contrast. CT scan was performed following ALARA (As low as Reasonably Achievable).Coronal and Sagittal reformatted images were performed.FINDINGSThere is preservation of the thoracic kyphosis. There is no evidence of acute fractures. There is endplate sclerosis at T8-T9 with small anterior osteophyte. There is degenerative disc disease at C6-C7.The lungs demonstrate mild bibasal atelectasis right more than left. There is no hyperdensity in the spinal canal, no suspicious for central spinal canal stenosisThere is a moderate narrowing of the left neural foraminaat C7-T1 left and mild in the right. There is scattered vacuum phenomenon in the lower thoracic vertebral bodies.IMPRESSIONNo acute fractures. No osseous neural foraminal stenosisElectronically signed by: Lexi Fisher (Jun 03, 2023 10:07:20)
--- NOTE | 2023-06-03 10:28 | CT ---
HISTORYSEVERE BACK PAINSTUDYLUMBAR SPINE W/O CONCOMPARISONNone availableTECHNIQUEAxial images through the lumbar spine were performed without contrast. CT scan was performed following ALARA (As low as Reasonably Achievable).Coronal and Sagittal reformatted images were performed.FINDINGSThere are 5 lumbar type vertebral bodies. . There is a focal well-circumscribed lucency along the superior endplate of L2 vertebral body with associated a pathologic compression fracture that appears extending along the inferior aspect of the right pedicle, there is extensive paravertebral edema, no central air is seen, follow with MRI is recommended. There is approximately 1 millimeter retropulsion. No significant vertebral height loss. No other focal abnormalities are seen. There is vacuum phenomenon in the lower lumbar spine. No focal dilatation of the abdominal aorta, status post cholecystectomy. The uterus is present, there is a possible mass anterior to the uterus partially included. Follow with CT of the abdomen and pelvis with contrast is recommended, there is a calculus in the right kidney no dominant adrenal masses. There is a right lower lower radiopacity probably atelectasis.There is vacuum phenomenon at L4-P0Kumagfim in the axial plane as [id number] demonstrate no evidence of a spinal canal or neural foraminal stenosis there is vacuum [id number] no evidence of dominant spinal canal or neural foraminal stenosisL1-L2 no evidence of spinal canal or neural foraminal stenosisL2-L3 and L3-L4 No evidence of spinal canal or neural foraminal stenosisL4-L5 there is vacuum phenomenon with 2 millimeters anterolisthesis of L4 on L5 there is moderate facet hypertrophy and mild narrowing of the spinal canalL5-S1 there is millimeter anterolisthesis of L5 on S1 with bilateral mild neural foraminal stenosis.IMPRESSIONParavertebral edema at L2 vertebral body with a pathologic fracture with 1 millimeter retro listhesis with the fracture extending along the inferior aspect of the right pedicle. No vertebral height loss.. Osteonecrosis versus tumor. Follow up with MRI with and without contrast is recommended.Suspected pelvic mass follow with CT of the pelvis with contrast recommendedElectronically signed by: Lexi Fisher (Jun 03, 2023 10:27:55)
[2023-06-03] MEDS: LOVENOX INJ 40 MG SYR SC SCH (10:44)
[2023-06-03] MEDS: LINZESS PO SCH (11:40)
[2023-06-03] MEDS: TYLENOL 500 MG TAB EXTRA STRENGTH PO PRN (13:11)
[2023-06-04] MEDS ORDERED: OMNIPAQUE 350 mg/mL 100 mL BTL 100 ML ONE (04:22)
[2023-06-04 04:49] LABS: BASOPHILS # (AUTO) 0.1 X10^3/uL (0.0-0.1); BASOPHILS % (AUTO) 0.9 % (0.2-1.0); EOSINOPHILS # (AUTO) 0.2 x10^3/uL (0.0-0.2); EOSINOPHILS % (AUTO) 3.3 % (0.9-2.9); HEMATOCRIT 32.4 % (36.0-47.0); HEMOGLOBIN 11.4 g/dL (12.0-16.0); LYMPHOCYTES # (AUTO) 1.7 X10^3/uL (1.3-2.9); LYMPHOCYTES % (AUTO) 24.6 % (21.0-51.0); MEAN CORPUSCULAR HGB CONC 35.1 g/dL (33.0-35.0); MONOCYTES # (AUTO) 0.5 x10^3/uL (0.3-0.8); MONOCYTES % (AUTO) 7.3 % (0.0-13.0); NEUTROPHILS # (AUTO) 4.5 x10^3/uL (2.2-4.8); NEUTROPHILS % (AUTO) 63.9 % (42.0-75.0); PLATELET COUNT 190 X10^3/uL (150.0-450.0); RED BLOOD COUNT 3.45 X10^6/uL (3.5-5.4); RED CELL DISTRIBUTION WIDTH 14.2 % (11.6-16.5)
[2023-06-04 05:05] LABS: ALANINE AMINOTRANSFERASE 17 Units/L (12-78); ALBUMIN 2.8 g/dL (3.4-5.0); ALKALINE PHOSPHATASE 64 Units/L (46-116); ASPARTATE AMINO TRANSFERASE 23 Units/L (15-37); BLOOD UREA NITROGEN 9 mg/dL (7-18); CALCIUM 8.2 mg/dL (8.5-10.1); CARBON DIOXIDE 26.6 mmol/L (21-32); CHLORIDE 102 mmol/L (98-107); COR CA(FOR HYPOALB) 9.2 mg/dL (8.5-10.1); CREATININE 0.49 mg/dL (0.55-1.02); GLUCOSE 89 mg/dL (65-99); POTASSIUM 4.3 mmol/L (3.5-5.1); SODIUM 135 mmol/L (136-145); TOTAL PROTEIN 5.7 g/dL (6.4-8.2); eGFR NON BLACK RACES > 60 (>60)
[2023-06-04] MEDS: NS 100 ML IV 100 ML ONE ×2 (06:17→23:08)
[2023-06-04] MEDS: MORPHINE SULFATE INJ 4 MG IVP PRN (06:25)
[2023-06-04] MEDS: LOVENOX INJ 40 MG SYR SC SCH (08:36)
[2023-06-04] MEDS: LINZESS PO SCH (08:36)
[2023-06-04] MEDS: EXELON PO SCH (08:39)
[2023-06-04] MEDS ORDERED: DULCOLAX SUPPOSITORY 10 MG RECTAL ONE (09:03)
[2023-06-04] MEDS ORDERED: MORPHINE SULFATE INJ 4 MG IVP ONE (09:39)
[2023-06-04] MEDS: NS 1,000 ML IV 1,000 ML IV SCH ×2 (10:00→20:26)
[2023-06-04] MEDS: ULTRAM PO PRN ×2 (13:28→20:55)
--- NOTE | 2023-06-04 14:20 | CT ---
EXAM:ABDCMEN/PELVIS WITH CONHISTORY:PELVIC MASS REQUESTING A COMMENT TO BE MADE ON GAS PATTERN, AND STOOL;COMPARISON:NoneTECHNIQUE:Multiple CT axial images of the abdomen and pelvis were obtained with IV contrast. Coronal and sagittal images were reconstructed. Dose reduction techniques included Automated Exposure Control (AEC) and adjustment of mA and kV.FINDINGS:There is a large amount of stool throughout the colon suggesting constipation. Most of this is in the right colon and transverse colon. Largest diameter is the cecum measuring 11.4 cm.A few of the small bowel loops are minimally dilated measuring up to 2.8 cm suggesting fecal impaction. No pneumoperitoneum. Small hiatal hernia measures 5 cm.There is no edema around the bowel loops. No focal wall thickening. There are diverticula in the colon. But there is no wall thickening or pericolonic edema to suggest acute diverticulitis.There is a large mass in the anterior pelvis. This measures 10.5 cm in longest dimension. Mostly made of soft tissue density but there is fatty content and possible peripheral calcification. This could be a dermoid or mature cystic ovarian teratoma. Probably associated with the right ovary.Very small right and trace left effusion is noted at the lung bases. Probable atelectasis in both lung bases right side more than left. Cardiomegaly is present.The liver is normal in size and configuration. Surgical clips are present in the gallbladder fossa from a cholecystectomy. The spleen is normal in size and shape. The adrenal glands are normal. The pancreas is normal.Small stone lower pole right kidney measures 2 mm. Renal enhancement is uniform and symmetric with no solid mass. There is no hydronephrosis or significant perirenal edema. The urinary bladder is contracted around a Gong balloon catheter.See separate lumbar and thoracic spine CT from yesterday for additional findings.IMPRESSION:1. Constipation with findings suggesting impaction2. 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 Colonic diverticula4. Nonobstructing right renal calculusTHIS IS AN ELECTRONICALLY VERIFIED FINAL REPORT06/04/2023 2:17 PM - Electronically signed by Darryn Thomas MD
[2023-06-04] MEDS: ZOFRAN INJ 4 MG VIAL IVP PRN (19:59)
[2023-06-04] MEDS ORDERED: PEPCID TAB 20 MG PO PRN (20:00)
[2023-06-04] MEDS ORDERED: PEPCID TAB 20 MG PO SCH (21:00)
[2023-06-04] MEDS ORDERED: CITROMA PO ONE (21:48)
[2023-06-04] MEDS ORDERED: CITROMA ONE (21:50)
--- NOTE | 2023-06-04 22:08 | DR.H&P ---
H&P History & Physical for Day of: H&P Date: 06/03/23 Chief Complaint Chief Complaint: Acute low back pain and increase in constipation with associated lower abdominal pain. Allergies Allergies Allergy/AdvReac Type Severity Reaction Status Date / Time benzonatate Allergy Verified 06/02/23 19:37 [From Tessalon Perles] meperidine [From Demerol] Allergy Verified 06/02/23 19:37 Penicillins Allergy Verified 06/02/23 19:37 rofecoxib [From Vioxx] Allergy Verified 06/02/23 19:37 WATER PILLS Allergy Uncoded 06/02/23 19:37 History of Present Illness History of Present Illness: This is a pleasant 87-year-old white female well- known to me. She has a relative who called me on Saturday, 02 June 2023, and told me that her back pain is so severe that she cannot get out of the wheelchair into bed. She also has a lot of lower abdominal pain and cannot move her bowels. We had recently had her in the hospital in April because of back pain and inability to ambulate sufficiently. We sent her to [facility] for inpatient physical rehabilitation, and she underwent therapy for about four weeks. Over that time, her status improved tremendously, and she was discharged home when she could get around with no significant problems. She tells me that she was trying to stand up for the day instead of a quick and also had an acute sensation of pain in her lower back, and afterward, she was pretty much confined to her wheelchair. The pain has been so severe she has been hardly able to get out of her wheelchair, get to the bathroom, and get out of the wheelchair to get to bed. She is strong-minded and does not like taking pain medication other than Tylenol, so unfortunately, this has not been strong enough to alleviate her pain. Because of this, her son decided to go ahead and call EMS so we could have her sent to [facility] emergency department for evaluation and admission. I called the attending physician in the emergency department that day, Dr. Alonzo, and told him to go ahead and admit Ms. Ventura to me so I could get her pain under control and run further tests to see if I could find the etiology of her pain. This morning the patient tells me that her pain is better controlled with the morphine and is anxious to run some test to see what is causing her worsening acute back pain. Once we have the results of the radiology and blood test we will review them with the patient later today or either tomorrow morning. Past Medical History Past Medical History: Anxiety, Depression, GERD and Hypertension Past Surgical History Surgical History: Cholecystectomy and Tonsillectomy Family History Family Medical History: Diabetes Mellitus, Cancer and Hypertension Social History Does patient currently use any type of tobacco product: No Have you used tobacco products in the last 12 months: No Type of Tobacco Use: None Does any household member use tobacco: No Alcohol Use: None Drug Use: None Medications Home Medications: Home Medications Medication Instructions Recorded Confirmed Type acetaminophen 500 mg tablet 1,000 mg PO Q6H PRN 06/02/23 06/02/23 History rivastigmine tartrate 1.5 mg 1.5 mg PO DAILY 06/02/23 06/02/23 History capsule Labs 06/04/23 04:28 06/04/23 04:28 Labs: Laboratory WBC 7.0 X10^3/uL (3.6-10.0) 06/04/23 04:28 RBC 3.45 X10^6/uL (3.5-5.4) L 06/04/23 04:28 Hgb 11.4 g/dL (12.0-16.0) L 06/04/23 04:28 Hct 32.4 % (36.0-47.0) L 06/04/23 04:28 MCV 94.0 fL (80.0-100.0) 06/04/23 04:28 MCH 33.0 pg (27.0-34.0) 06/04/23 04:28 MCHC 35.1 g/dL (33.0-35.0) H 06/04/23 04:28 RDW 14.2 % (11.6-16.5) 06/04/23 04:28 Plt Count 190 X10^3/uL (150.0-450.0) 06/04/23 04:28 MPV 7.0 fL (7.4-11.0) L 06/04/23 04:28 Neut % (Auto) 63.9 % (42.0-75.0) 06/04/23 04:28 Lymph % (Auto) 24.6 % (21.0-51.0) 06/04/23 04:28 [place] % (Auto) 7.3 % (0.0-13.0) 06/04/23 04:28 Eos % (Auto) 3.3 % (0.9-2.9) H 06/04/23 04:28 Baso % (Auto) 0.9 % (0.2-1.0) 06/04/23 04:28 Neut # (Auto) 4.5 x10^3/uL (2.2-4.8) 06/04/23 04:28 Lymph # (Auto) 1.7 X10^3/uL (1.3-2.9) 06/04/23 04:28 [place] # (Auto) 0.5 x10^3/uL (0.3-0.8) 06/04/23 04:28 Eos # (Auto) 0.2 x10^3/uL (0.0-0.2) 06/04/23 04:28 Baso # (Auto) 0.1 X10^3/uL (0.0-0.1) 06/04/23 04:28 Absolute Nucleated RBC 0.0 /100WBC 06/04/23 04:28 Sodium 135 mmol/L (136-145) L 06/04/23 04:28 Corrected Sodium TNP 06/04/23 04:28 Potassium 4.3 mmol/L (3.5-5.1) 06/04/23 04:28 Chloride 102 mmol/L (98-107) 06/04/23 04:28 Carbon Dioxide 26.6 mmol/L (21-32) 06/04/23 04:28 BUN 9 mg/dL (7-18) 06/04/23 04:28 Creatinine 0.49 mg/dL (0.55-1.02) L 06/04/23 04:28 Est GFR (MDRD) Af Amer > 60 (>60) 06/04/23 04:28 Est GFR (MDRD) Non-Af > 60 (>60) 06/04/23 04:28 Glucose 89 mg/dL (65-99) 06/04/23 04:28 Calcium 8.2 mg/dL (8.5-10.1) L 06/04/23 04:28 Corrected Calcium 9.2 mg/dL (8.5-10.1) 06/04/23 04:28 Magnesium 2.2 mg/dL (2.0-2.9) 06/02/23 19:55 Total Bilirubin 0.60 mg/dL (0.2-1.0) 06/04/23 04:28 AST 23 Units/L (15-37) 06/04/23 04:28 ALT 17 Units/L (12-78) 06/04/23 04:28 Alkaline Phosphatase 64 Units/L (46-116) 06/04/23 04:28 Total Protein 5.7 g/dL (6.4-8.2) L 06/04/23 04:28 Albumin 2.8 g/dL (3.4-5.0) L 06/04/23 04:28 Globulin 2.9 g/dL (2.5-4.5) 06/04/23 04:28 Albumin/Globulin Ratio 1.0 Ratio (1.1-2.1) L 06/04/23 04:28 Lipase 77 Units/L (73-393) 06/02/23 19:55 Specimen Type Catherized urine 06/02/23 22:02 Urine Color Straw (YELLOW) 06/02/23 22:02 Urine Appearance Clear (CLEAR) 06/02/23 22:02 Urine pH 7.0 (5.0 - 8.0) 06/02/23 22:02 Ur Specific [place] 1.010 (1.000-1.030) 06/02/23 22:02 Urine Protein Negative (NEGATIVE) 06/02/23 22:02 Urine Glucose (UA) Negative (NEGATIVE) 06/02/23 22:02 Urine Ketones Negative (NEGATIVE) 06/02/23 22:02 Urine Blood Negative (NEGATIVE) 06/02/23 22:02 Urine Nitrite Negative (NEGATIVE) 06/02/23 22:02 Urine Bilirubin Negative (NEGATIVE) 06/02/23 22:02 Urine Urobilinogen Normal (NORMAL) 06/02/23 22:02 Ur Leukocyte Esterase Negative (NEGATIVE) 06/02/23 22:02 Review of Systems Constitutional: Weakness and Malaise Eyes: No Symptoms Reported ENT: No Symptoms Reported, See HPI, Ear Pain, Ear Discharge, Nose Pain, Nose Discharge, Nose Congestion, Mouth Pain, Mouth Swelling, Throat Pain, Throat Swelling and Other Respiratory: denies No Symptoms Reported, See HPI, Cough, Dry, Shortness of Breath, Hemoptysis, SOB with Excertion, Pleuritic Pain, Sputum, Wheezing or Other Cardiovascular: denies No Symptoms Reported, Chest Pain, See HPI, Palpitations, Orthopnea, Paroxysmal Noc. Dyspnea, Edema, Light Headedness or Other Gastrointestinal: Abdominal Pain and Constipation; denies Nausea, Diarrhea, Melena or Hematochezia Genitourinary: denies No Symptoms Reported, Dysuria, Frequency, Incontinence, Hematuria or Retention Musculoskeletal: Back Pain Skin: Bruising Neurological: Weakness Physical Exam Vital Signs: Vital Signs Temperature 98.8 F Temperature 98.2 F Pulse Rate [Left Brachial] 93 Pulse Rate [Left Brachial] 88 Respiratory Rate 16 Respiratory Rate 20 Respiratory Rate 20 Respiratory Rate 16 Blood Pressure [Left Arm] 146/67 Blood Pressure [Left Arm] 120/66 O2 Sat by Pulse Oximetry 98 O2 Sat by Pulse Oximetry 95 Oriented: Normal, Time, Person and Place Eyes: Normal; negative Blurred Vision, Diplopia, Discharge, Redness or Photophobia Ear: Normal Nose: Normal Throat: Normal Respiratory: Clear Throughout Cardiovascular: Normal : Normal Auscultation: Bowel Sounds: Normal Palpation: Normal Tenderness: RLQ Skin: Normal Psychiatric: Anxiety Mood Description: Depressed and Anxious Affect: Anxious and Depressed; negative Angry, Flat, Hysterical, Quiet or Violent Speech Pattern: Clear and Appropriate; negative Unclear, Inappropriate, Delayed, Slurred, Excessive, Aphasic, Artificially Ventilated or Trach(not ventilated) Assessment/Plan (1) Intractable low back pain: Status: Acute Plan: We will start a Duragesic patch 12 mcg every 72 hours. We also give her as needed IV morphine sulfate as needed. We will go ahead and plan to do a CT of her lumbar spine today. (2) Generalized weakness: Status: Acute Plan: Monitor for improvement. We will also plan on physical therapy consultation pending the outcome/results of her CT scan of her lumbar spine. (3) Depression with anxiety: Status: Acute (4) Hypertension: Status: None Plan: Monitor daily blood pressures. (5) Generalized weakness: Status: Acute Plan: Physical therapy consultation. Review patient's labs. Review H&P Reviewed: Yes Patient was examined?: Yes
--- NOTE | 2023-06-04 22:21 | PCM.PROG ---
Progress Note Progress Note for Day of Date of Exam: 06/04/23 Subjective Subjective: This morning, the patient reports that her pain is better controlled. We did start the Duragesic patch at 12 mcg every 72 hours. We also have started her on Linzess 145 mcg p.o. daily for her chronic constipation. She still has not been able to defecate, and she has tried three times on the bedpan, she reports. She still seems uncomfortable. We will try a Dulcolax suppository today and see if we can get her bowels moving. We will also are going to go ahead and proceed with a CT scan of her abdomen and pelvis with IV contrast. Since her back is hurting so profoundly secondary to her compression fracture, we will give her 3 mg IV morphine before the CT scan of her abdomen and pelvis. I will follow-up with the results of the CT scan later today and continue her pain control at this time. Past Medical Family Social History Allergies: Allergies benzonatate [From Tessalon Perles] Allergy (Verified 06/02/23 19:37) meperidine [From Demerol] Allergy (Verified 06/02/23 19:37) Penicillins Allergy (Verified 06/02/23 19:37) rofecoxib [From Vioxx] Allergy (Verified 06/02/23 19:37) WATER PILLS Allergy (Uncoded 06/02/23 19:37) Review of Systems ROS: No change since H&P Vital Signs and I&O's Vital Signs: Vital Signs Temperature 98.8 F Temperature 98.2 F Pulse Rate [Left Brachial] 93 Pulse Rate [Left Brachial] 88 Respiratory Rate 16 Respiratory Rate 20 Respiratory Rate 20 Respiratory Rate 16 Blood Pressure [Left Arm] 146/67 Blood Pressure [Left Arm] 120/66 O2 Sat by Pulse Oximetry 98 O2 Sat by Pulse Oximetry 95 Intake and Output: Intake & Output 06/02/23 06/03/23 06/04/23 06/05/23 11:59 11:59 11:59 11:59 Intake Total 575 / 575 2090 / 2090 699 / 699 Output Total 2600 / 2600 800 / 800 1375 / 1375 Balance -2024 / -2024 1290 / 1290 -676 / -676 Physical Exam Oriented: Normal, Time, Person and Place Eyes: Normal; negative Blurred Vision, Diplopia, Discharge, Redness or Photophobia Ear: Normal Nose: Normal Throat: Normal Respiratory: Normal Cardiovascular: Normal : Normal Auscultation: Bowel Sounds: Normal Palpation: Normal Tenderness: RLQ Skin: Normal Psychiatric: Anxiety Mood Description: Depressed and Anxious Affect: Anxious and Depressed; negative Angry, Flat, Hysterical, Quiet or Violent Speech Pattern: Clear and Appropriate; negative Unclear, Inappropriate, Delayed, Slurred, Excessive, Aphasic, Artificially Ventilated or Trach(not ventilated) Laboratory and Diagnostics 06/04/23 04:28 06/04/23 04:28 Labs: Laboratory WBC 7.0 X10^3/uL (3.6-10.0) 06/04/23 04:28 RBC 3.45 X10^6/uL (3.5-5.4) L 06/04/23 04:28 Hgb 11.4 g/dL (12.0-16.0) L 06/04/23 04:28 Hct 32.4 % (36.0-47.0) L 06/04/23 04:28 MCV 94.0 fL (80.0-100.0) 06/04/23 04:28 MCH 33.0 pg (27.0-34.0) 06/04/23 04:28 MCHC 35.1 g/dL (33.0-35.0) H 06/04/23 04:28 RDW 14.2 % (11.6-16.5) 06/04/23 04:28 Plt Count 190 X10^3/uL (150.0-450.0) 06/04/23 04:28 MPV 7.0 fL (7.4-11.0) L 06/04/23 04:28 Neut % (Auto) 63.9 % (42.0-75.0) 06/04/23 04:28 Lymph % (Auto) 24.6 % (21.0-51.0) 06/04/23 04:28 [place] % (Auto) 7.3 % (0.0-13.0) 06/04/23 04:28 Eos % (Auto) 3.3 % (0.9-2.9) H 06/04/23 04:28 Baso % (Auto) 0.9 % (0.2-1.0) 06/04/23 04:28 Neut # (Auto) 4.5 x10^3/uL (2.2-4.8) 06/04/23 04:28 Lymph # (Auto) 1.7 X10^3/uL (1.3-2.9) 06/04/23 04:28 [place] # (Auto) 0.5 x10^3/uL (0.3-0.8) 06/04/23 04:28 Eos # (Auto) 0.2 x10^3/uL (0.0-0.2) 06/04/23 04:28 Baso # (Auto) 0.1 X10^3/uL (0.0-0.1) 06/04/23 04:28 Absolute Nucleated RBC 0.0 /100WBC 06/04/23 04:28 Sodium 135 mmol/L (136-145) L 06/04/23 04:28 Corrected Sodium TNP 06/04/23 04:28 Potassium 4.3 mmol/L (3.5-5.1) 06/04/23 04:28 Chloride 102 mmol/L (98-107) 06/04/23 04:28 Carbon Dioxide 26.6 mmol/L (21-32) 06/04/23 04:28 BUN 9 mg/dL (7-18) 06/04/23 04:28 Creatinine 0.49 mg/dL (0.55-1.02) L 06/04/23 04:28 Est GFR (MDRD) Af Amer > 60 (>60) 06/04/23 04:28 Est GFR (MDRD) Non-Af > 60 (>60) 06/04/23 04:28 Glucose 89 mg/dL (65-99) 06/04/23 04:28 Calcium 8.2 mg/dL (8.5-10.1) L 06/04/23 04:28 Corrected Calcium 9.2 mg/dL (8.5-10.1) 06/04/23 04:28 Magnesium 2.2 mg/dL (2.0-2.9) 06/02/23 19:55 Total Bilirubin 0.60 mg/dL (0.2-1.0) 06/04/23 04:28 AST 23 Units/L (15-37) 06/04/23 04:28 ALT 17 Units/L (12-78) 06/04/23 04:28 Alkaline Phosphatase 64 Units/L (46-116) 06/04/23 04:28 Total Protein 5.7 g/dL (6.4-8.2) L 06/04/23 04:28 Albumin 2.8 g/dL (3.4-5.0) L 06/04/23 04:28 Globulin 2.9 g/dL (2.5-4.5) 06/04/23 04:28 Albumin/Globulin Ratio 1.0 Ratio (1.1-2.1) L 06/04/23 04:28 Lipase 77 Units/L (73-393) 06/02/23 19:55 Specimen Type Catherized urine 06/02/23 22:02 Urine Color Straw (YELLOW) 06/02/23 22:02 Urine Appearance Clear (CLEAR) 06/02/23 22:02 Urine pH 7.0 (5.0 - 8.0) 06/02/23 22:02 Ur Specific [place] 1.010 (1.000-1.030) 06/02/23 22:02 Urine Protein Negative (NEGATIVE) 06/02/23 22:02 Urine Glucose (UA) Negative (NEGATIVE) 06/02/23 22:02 Urine Ketones Negative (NEGATIVE) 06/02/23 22:02 Urine Blood Negative (NEGATIVE) 06/02/23 22:02 Urine Nitrite Negative (NEGATIVE) 06/02/23 22:02 Urine Bilirubin Negative (NEGATIVE) 06/02/23 22:02 Urine Urobilinogen Normal (NORMAL) 06/02/23 22:02 Ur Leukocyte Esterase Negative (NEGATIVE) 06/02/23 22:02 Radiology Reviewed: Yes Plan (1) Intractable low back pain: Status: Acute Plan: We will start a Duragesic patch 12 mcg every 72 hours. We also give her as needed IV morphine sulfate as needed. We will go ahead and plan to do a CT of her lumbar spine today. (2) Generalized weakness: Status: Acute Plan: Monitor for improvement. We will also plan on physical therapy consultation pending the outcome/results of her CT scan of her lumbar spine. (3) Depression with anxiety: Status: Acute Plan: Continue to monitor to see if the patient needs treatment. (4) Hypertension: Status: None Plan: Monitor daily blood pressures. (5) Generalized weakness: Status: Acute Plan: Physical therapy consultation. Review patient's labs.
[2023-06-04] MEDS: PHENERGAN INJ 25 MG IM PRN (22:26)
[2023-06-05] MEDS: NS 1,000 ML IV 1,000 ML IV SCH ×4 (00:23→20:14)
[2023-06-05] MEDS: ULTRAM PO SCH ×3 (02:50→20:50)
[2023-06-05] MEDS: ZOFRAN INJ 4 MG VIAL IVP PRN (02:50)
[2023-06-05] MEDS ORDERED: COMPAZINE INJ IVP ONE (03:58)
[2023-06-05 05:56] LABS: BASOPHILS % (AUTO) 0.5 % (0.2-1.0); EOSINOPHILS % (AUTO) 0.6 % (0.9-2.9); HEMATOCRIT 39.8 % (36.0-47.0); LYMPHOCYTES # (AUTO) 1.1 X10^3/uL (1.3-2.9); LYMPHOCYTES % (AUTO) 16.2 % (21.0-51.0); MEAN CORPUSCULAR HEMOGLOBIN 32.9 pg (27.0-34.0); MEAN CORPUSCULAR HGB CONC 34.8 g/dL (33.0-35.0); MEAN CORPUSCULAR VOLUME 94.6 fL (80.0-100.0); MEAN PLATELET VOLUME 7.9 fL (7.4-11.0); MONOCYTES # (AUTO) 0.5 x10^3/uL (0.3-0.8); MONOCYTES % (AUTO) 7.8 % (0.0-13.0); NEUTROPHILS # (AUTO) 5.2 x10^3/uL (2.2-4.8); NEUTROPHILS % (AUTO) 74.9 % (42.0-75.0); PLATELET COUNT 244 X10^3/uL (150.0-450.0); RED CELL DISTRIBUTION WIDTH 13.9 % (11.6-16.5); WHITE BLOOD COUNT 6.9 X10^3/uL (3.6-10.0)
[2023-06-05 06:03] LABS: HEMOGLOBIN 13.8 g/dL (12.0-16.0)
[2023-06-05 06:16] LABS: ALANINE AMINOTRANSFERASE 20 Units/L (12-78); ALBUMIN 3.1 g/dL (3.4-5.0); ALKALINE PHOSPHATASE 75 Units/L (46-116); ASPARTATE AMINO TRANSFERASE 23 Units/L (15-37); BLOOD UREA NITROGEN 8 mg/dL (7-18); CALCIUM 8.6 mg/dL (8.5-10.1); CARBON DIOXIDE 29.1 mmol/L (21-32); CHLORIDE 98 mmol/L (98-107); COR CA(FOR HYPOALB) 9.3 mg/dL (8.5-10.1); CREATININE 0.57 mg/dL (0.55-1.02); GLUCOSE 109 mg/dL (65-99); POTASSIUM 3.9 mmol/L (3.5-5.1); SODIUM 136 mmol/L (136-145); TOTAL PROTEIN 6.8 g/dL (6.4-8.2); eGFR NON BLACK RACES > 60 (>60)
[2023-06-05] MEDS ORDERED: ZOFRAN INJ 4 MG VIAL IV ONE (08:32)
[2023-06-05] MEDS ORDERED: CITROMA PO ONE (08:35)
[2023-06-05] MEDS: PHENERGAN INJ 25 MG IM PRN (08:35)
[2023-06-05] MEDS ORDERED: DULCOLAX SUPPOSITORY 10 MG RECTAL ONE (08:36)
[2023-06-05] MEDS: LOVENOX INJ 40 MG SYR SC SCH (09:12)
[2023-06-05] MEDS: PROTONIX INJ 40 MG VIAL IVP SCH ×2 (09:12→20:08)
[2023-06-05] MEDS: DURAGESIC 12 MCG/HR PATCH TD SCH (09:14)
[2023-06-05] MEDS: EXELON PO SCH (09:37)
[2023-06-05] MEDS: LINZESS PO SCH (09:38)
[2023-06-05] MEDS ORDERED: REGLAN INJ 10 MG VIAL IVP SCH (11:30)
--- NOTE | 2023-06-05 13:48 | RAD ---
HISTORYNG tube placementSTUDYChest AP [id number]/08/2023FINDINGSTher e is a nasogastric tube with its tip well within the expected position of the stomach. Heart is mildly enlarged. No congestive heart failure is noted. Right basilar infiltrate is present. Remainder of the lung pritchard are clear. No pleural effusions are identified. Bony thorax is unremarkable with the exception of right-sided chronic rotator cuff disease.IMPRESSIONNasogastric tube tip well within the expected position of the stomachRight basilar lung infiltrateElectronically signed by: ODELL SANCHEZ (Jun 05, 2023 13:47:38)
[2023-06-05] MEDS ORDERED: PEPCID 20 MG VIAL 20 MG in NS 50 ML IV 50 ML IV PRN (15:46)
[2023-06-05] MEDS: MORPHINE SULFATE INJ 4 MG IVP PRN ×2 (15:56→20:13)
--- NOTE | 2023-06-05 19:06 | RAD ---
EXAM:KUB, 2 imagesHISTORY:INTRACTABLE N/V;COMPARISON:06/02/2023FINDINGS:Minima lly dilated small bowel is present measuring up to 4.1 centimeters. This may be slightly increased when compared to the CT from 06/04/2003. There is also colonic dilatation. No pneumoperitoneum.The enteric tube extends into the upper left abdomen. At this location and is most likely in the stomach.The bones are unremarkable.IMPRESSION:1. Increased small bowel dilatationTHIS IS AN ELECTRONICALLY VERIFIED FINAL REPORT06/05/2023 6:53 PM - Electronically signed by Darryn Thomas MD
[2023-06-06] MEDS: NS 1,000 ML IV 1,000 ML IV SCH ×3 (01:17→20:39)
[2023-06-06 06:02] LABS: BASOPHILS % (AUTO) 0.6 % (0.2-1.0); EOSINOPHILS # (AUTO) 0.1 x10^3/uL (0.0-0.2); HEMATOCRIT 36.2 % (36.0-47.0); HEMOGLOBIN 12.6 g/dL (12.0-16.0); LYMPHOCYTES % (AUTO) 20.3 % (21.0-51.0); MEAN CORPUSCULAR HEMOGLOBIN 32.9 pg (27.0-34.0); MEAN CORPUSCULAR HGB CONC 34.7 g/dL (33.0-35.0); MEAN CORPUSCULAR VOLUME 94.6 fL (80.0-100.0); MEAN PLATELET VOLUME 8.5 fL (7.4-11.0); MONOCYTES # (AUTO) 0.7 x10^3/uL (0.3-0.8); MONOCYTES % (AUTO) 13.7 % (0.0-13.0); NEUTROPHILS % (AUTO) 62.4 % (42.0-75.0); PLATELET COUNT 237 X10^3/uL (150.0-450.0); RED BLOOD COUNT 3.83 X10^6/uL (3.5-5.4); RED CELL DISTRIBUTION WIDTH 14.4 % (11.6-16.5); WHITE BLOOD COUNT 4.8 X10^3/uL (3.6-10.0)
[2023-06-06 06:07] LABS: ALANINE AMINOTRANSFERASE 16 Units/L (12-78); ALBUMIN 2.9 g/dL (3.4-5.0); ALKALINE PHOSPHATASE 66 Units/L (46-116); ASPARTATE AMINO TRANSFERASE 16 Units/L (15-37); BLOOD UREA NITROGEN 12 mg/dL (7-18); CALCIUM 8.1 mg/dL (8.5-10.1); CARBON DIOXIDE 27.8 mmol/L (21-32); CHLORIDE 102 mmol/L (98-107); CREATININE 0.55 mg/dL (0.55-1.02); GLUCOSE 92 mg/dL (65-99); POTASSIUM 3.9 mmol/L (3.5-5.1); SODIUM 138 mmol/L (136-145); TOTAL PROTEIN 6.1 g/dL (6.4-8.2); eGFR NON BLACK RACES > 60 (>60)
[2023-06-06] MEDS: DURAGESIC 12 MCG/HR PATCH TD SCH (08:05)
[2023-06-06] MEDS: LOVENOX INJ 40 MG SYR SC SCH (08:44)
[2023-06-06] MEDS: PROTONIX INJ 40 MG VIAL IVP SCH ×2 (08:44→20:36)
[2023-06-06] MEDS: ZOFRAN INJ 4 MG VIAL IVP PRN (22:26)
[2023-06-06] MEDS: MORPHINE SULFATE INJ 4 MG IVP PRN (23:54)
[2023-06-07] MEDS: NS 1,000 ML IV 1,000 ML IV SCH ×3 (04:06→20:30)
[2023-06-07 05:57] LABS: BASOPHILS % (AUTO) 0.5 % (0.2-1.0); EOSINOPHILS % (AUTO) 0.1 % (0.9-2.9); HEMATOCRIT 37.5 % (36.0-47.0); HEMOGLOBIN 12.9 g/dL (12.0-16.0); LYMPHOCYTES # (AUTO) 0.9 X10^3/uL (1.3-2.9); LYMPHOCYTES % (AUTO) 12.9 % (21.0-51.0); MEAN CORPUSCULAR HEMOGLOBIN 32.5 pg (27.0-34.0); MEAN CORPUSCULAR HGB CONC 34.4 g/dL (33.0-35.0); MEAN CORPUSCULAR VOLUME 94.3 fL (80.0-100.0); MEAN PLATELET VOLUME 8.8 fL (7.4-11.0); MONOCYTES # (AUTO) 0.7 x10^3/uL (0.3-0.8); MONOCYTES % (AUTO) 10.2 % (0.0-13.0); NEUTROPHILS # (AUTO) 5.2 x10^3/uL (2.2-4.8); NEUTROPHILS % (AUTO) 76.3 % (42.0-75.0); PLATELET COUNT 260 X10^3/uL (150.0-450.0); RED BLOOD COUNT 3.98 X10^6/uL (3.5-5.4); WHITE BLOOD COUNT 6.9 X10^3/uL (3.6-10.0)
--- NOTE | 2023-06-07 06:08 | RAD ---
HISTORYIleus, abdominal [id number]/27/2023 br.br.br.br in the expected position of the stomach. There is continued dilatation of multiple small bowel loops in the left abdomen not significantly changed from the prior examination. Gas is seen distally within the colon. Findings could be consistent with ileus or partial small bowel obstruction. No abnormal masses or abnormal calcifications are identified. Regional skeleton is osteopenic but intact.IMPRESSIONPersistence of dilated small bowel loops in the left abdomen unchanged from the prior examination and with gas distally within the colon. Findings could be consistent with ileus or partial small bowel obstruction.Electronically signed by: ODELL SANCHEZ (Jun 07, 2023 06:07:19)
[2023-06-07 06:19] LABS: ALANINE AMINOTRANSFERASE 16 Units/L (12-78); ALBUMIN 2.9 g/dL (3.4-5.0); ALKALINE PHOSPHATASE 72 Units/L (46-116); ASPARTATE AMINO TRANSFERASE 25 Units/L (15-37); BLOOD UREA NITROGEN 9 mg/dL (7-18); CALCIUM 8.4 mg/dL (8.5-10.1); CARBON DIOXIDE 21.2 mmol/L (21-32); CHLORIDE 99 mmol/L (98-107); COR CA(FOR HYPOALB) 9.3 mg/dL (8.5-10.1); CREATININE 0.46 mg/dL (0.55-1.02); GLUCOSE 102 mg/dL (65-99); SODIUM 134 mmol/L (136-145); TOTAL PROTEIN 6.5 g/dL (6.4-8.2); eGFR NON BLACK RACES > 60 (>60)
[2023-06-07 07:00] LABS: POTASSIUM 4.5 mmol/L (3.5-5.1)
--- NOTE | 2023-06-07 07:51 | DR.PROGNOT ---
HOSPITAL PROGRESS NOTE Progress Note for Day of: Progress Note Date: 06/07/23 Chief Complaint Chief Complaint: feeling a little better this am .. vomited last night . KUB still showing dilated small and large bowel . normal CBC . afebrile Past Medical Family Social History Allergies: Allergies benzonatate [From Tessalon Perles] Allergy (Verified 06/02/23 19:37) meperidine [From Demerol] Allergy (Verified 06/02/23 19:37) Penicillins Allergy (Verified 06/02/23 19:37) rofecoxib [From Vioxx] Allergy (Verified 06/02/23 19:37) WATER PILLS Allergy (Uncoded 06/02/23 19:37) Review Of Systems ROS: No change since H&P Vital Signs Vital Signs: Vital Signs Temperature 97.9 F Temperature 97.9 F Pulse Rate [Left Brachial] 89 Pulse Rate [Left Brachial] 80 Respiratory Rate 20 Respiratory Rate 18 Respiratory Rate 20 Respiratory Rate 18 Blood Pressure [Left Arm] 145/69 Blood Pressure [Left Arm] 166/79 O2 Sat by Pulse Oximetry 97 O2 Sat by Pulse Oximetry 94 Physical Exam Oriented: Normal, Time, Person and Place Eyes: Normal; negative Blurred Vision, Diplopia, Discharge, Redness or Photophobia Ear: Normal Nose: Normal Throat: Normal Respiratory: Normal Cardiovascular: Normal : Normal GI:Auscultation: Normal GI:Palpation: Normal GI: Tenderness: RLQ and Other (moderate distention , tympanic ,lower tenderness , BS+) Skin: Normal Psychiatric: Anxiety Mood Description: Depressed and Anxious Affect: Anxious and Depressed; negative Angry, Flat, Hysterical, Quiet or Violent Speech Pattern: Clear and Appropriate Laboratory and Diagnostics 06/07/23 05:03 06/07/23 05:03 Labs: Laboratory WBC 6.9 X10^3/uL (3.6-10.0) 06/07/23 05:03 RBC 3.98 X10^6/uL (3.5-5.4) 06/07/23 05:03 Hgb 12.9 g/dL (12.0-16.0) 06/07/23 05:03 Hct 37.5 % (36.0-47.0) 06/07/23 05:03 MCV 94.3 fL (80.0-100.0) 06/07/23 05:03 MCH 32.5 pg (27.0-34.0) 06/07/23 05:03 MCHC 34.4 g/dL (33.0-35.0) 06/07/23 05:03 RDW 14.0 % (11.6-16.5) 06/07/23 05:03 Plt Count 260 X10^3/uL (150.0-450.0) 06/07/23 05:03 MPV 8.8 fL (7.4-11.0) 06/07/23 05:03 Neut % (Auto) 76.3 % (42.0-75.0) H 06/07/23 05:03 Lymph % (Auto) 12.9 % (21.0-51.0) L 06/07/23 05:03 [place] % (Auto) 10.2 % (0.0-13.0) 06/07/23 05:03 Eos % (Auto) 0.1 % (0.9-2.9) L 06/07/23 05:03 Baso % (Auto) 0.5 % (0.2-1.0) 06/07/23 05:03 Neut # (Auto) 5.2 x10^3/uL (2.2-4.8) H 06/07/23 05:03 Lymph # (Auto) 0.9 X10^3/uL (1.3-2.9) L 06/07/23 05:03 [place] # (Auto) 0.7 x10^3/uL (0.3-0.8) 06/07/23 05:03 Eos # (Auto) 0.0 x10^3/uL (0.0-0.2) 06/07/23 05:03 Baso # (Auto) 0.0 X10^3/uL (0.0-0.1) 06/07/23 05:03 Absolute Nucleated RBC 0.1 /100WBC 06/07/23 05:03 Sodium 134 mmol/L (136-145) L 06/07/23 05:03 Corrected Sodium TNP 06/07/23 05:03 Potassium 4.5 mmol/L (3.5-5.1) 06/07/23 05:03 Chloride 99 mmol/L (98-107) 06/07/23 05:03 Carbon Dioxide 21.2 mmol/L (21-32) 06/07/23 05:03 BUN 9 mg/dL (7-18) 06/07/23 05:03 Creatinine 0.46 mg/dL (0.55-1.02) L 06/07/23 05:03 Est GFR (MDRD) Af Amer > 60 (>60) 06/07/23 05:03 Est GFR (MDRD) Non-Af > 60 (>60) 06/07/23 05:03 Glucose 102 mg/dL (65-99) H 06/07/23 05:03 Calcium 8.4 mg/dL (8.5-10.1) L 06/07/23 05:03 Corrected Calcium 9.3 mg/dL (8.5-10.1) 06/07/23 05:03 Magnesium 2.2 mg/dL (2.0-2.9) 06/02/23 19:55 Total Bilirubin 1.10 mg/dL (0.2-1.0) H 06/07/23 05:03 AST 25 Units/L (15-37) 06/07/23 05:03 ALT 16 Units/L (12-78) 06/07/23 05:03 Alkaline Phosphatase 72 Units/L (46-116) 06/07/23 05:03 Total Protein 6.5 g/dL (6.4-8.2) 06/07/23 05:03 Albumin 2.9 g/dL (3.4-5.0) L 06/07/23 05:03 Globulin 3.6 g/dL (2.5-4.5) 06/07/23 05:03 Albumin/Globulin Ratio 0.8 Ratio (1.1-2.1) L 06/07/23 05:03 Lipase 77 Units/L (73-393) 06/02/23 19:55 Specimen Type Catherized urine 06/02/23 22:02 Urine Color Straw (YELLOW) 06/02/23 22:02 Urine Appearance Clear (CLEAR) 06/02/23 22:02 Urine pH 7.0 (5.0 - 8.0) 06/02/23 22:02 Ur Specific [place] 1.010 (1.000-1.030) 06/02/23 22:02 Urine Protein Negative (NEGATIVE) 06/02/23 22:02 Urine Glucose (UA) Negative (NEGATIVE) 06/02/23 22:02 Urine Ketones Negative (NEGATIVE) 06/02/23 22:02 Urine Blood Negative (NEGATIVE) 06/02/23 22:02 Urine Nitrite Negative (NEGATIVE) 06/02/23 22:02 Urine Bilirubin Negative (NEGATIVE) 06/02/23 22:02 Urine Urobilinogen Normal (NORMAL) 06/02/23 22:02 Ur Leukocyte Esterase Negative (NEGATIVE) 06/02/23 22:02 Assessment and Plan 1: improving bowel obstruction . same plan , NPO , NGT and observe . Problem Patient Problems: Patient Problems Intractable low back pain (Acute) M54.59
[2023-06-07] MEDS: PROTONIX INJ 40 MG VIAL IVP SCH ×2 (08:51→20:29)
[2023-06-07] MEDS: LOVENOX INJ 40 MG SYR SC SCH (08:51)
--- NOTE | 2023-06-07 13:36 | RAD ---
EXAM:KUB 11:03 a.m.HISTORY:S/P SOAP SUDS ENEMA, SBO;COMPARISON:06/07/2023 5:33 a.m.FINDINGS:Small bowel dilatation is present measuring up to 4 2 cm. Findings suggest a small bowel obstruction. No pneumoperitoneum.There is less stool than on the study from earlier today and certainly less stool than on the CT from 06/04/2023.Surgical clips are present in the right upper abdomen, probably from a cholecystectomy.IMPRESSION:1. Decreased stool burden2. Findings suggesting small bowel obstruction3. No pneumoperitoneumTHIS IS AN ELECTRONICALLY VERIFIED FINAL REPORT06/07/2023 1:31 PM - Electronically signed by Darryn Thomas MD
--- NOTE | 2023-06-07 20:36 | PCM.PROG ---
Progress Note Progress Note for Day of Date of Exam: 06/05/23 Subjective Subjective: The patient still has not moved her bowels but she is resting comfortably this morning. We will try her on some magnesium citrate and declined suppository today. Continue pain control with morphine and Duragesic patch. Labs within normal limits today. Past Medical Family Social History Allergies: Allergies benzonatate [From Tessalon Perles] Allergy (Verified 06/02/23 19:37) meperidine [From Demerol] Allergy (Verified 06/02/23 19:37) Penicillins Allergy (Verified 06/02/23 19:37) rofecoxib [From Vioxx] Allergy (Verified 06/02/23 19:37) WATER PILLS Allergy (Uncoded 06/02/23 19:37) Review of Systems ROS: No change since H&P Vital Signs and I&O's Vital Signs: Vital Signs Temperature 98.8 F Pulse Rate [Left Brachial] 86 Respiratory Rate 20 Blood Pressure [Left Arm] 112/59 O2 Sat by Pulse Oximetry 94 Intake and Output: Intake & Output 06/05/23 06/06/23 06/07/23 06/08/23 11:59 11:59 11:59 11:59 Intake Total 2401 / 2401 1903 / 1903 1948 / 1948 797 / 797 Output Total 1900 / 1900 1954 / 1954 3200 / 3200 725 / 725 Balance 501 / 501 -52 / -52 -1252 / -1252 72 / 72 Physical Exam Oriented: Normal, Time, Person and Place Eyes: Normal; negative Blurred Vision, Diplopia, Discharge, Redness or Photophobia Ear: Normal Nose: Normal Throat: Normal Respiratory: Normal Cardiovascular: Normal : Normal Auscultation: Bowel Sounds: Normal Tenderness: RLQ and Other (moderate distention , tympanic ,lower tenderness , BS+) Skin: Normal Psychiatric: Anxiety Mood Description: Depressed and Anxious Affect: Anxious and Depressed; negative Angry, Flat, Hysterical, Quiet or Violent Speech Pattern: Clear and Appropriate Laboratory and Diagnostics 06/07/23 05:03 06/07/23 05:03 Labs: Laboratory WBC 6.9 X10^3/uL (3.6-10.0) 06/07/23 05:03 RBC 3.98 X10^6/uL (3.5-5.4) 06/07/23 05:03 Hgb 12.9 g/dL (12.0-16.0) 06/07/23 05:03 Hct 37.5 % (36.0-47.0) 06/07/23 05:03 MCV 94.3 fL (80.0-100.0) 06/07/23 05:03 MCH 32.5 pg (27.0-34.0) 06/07/23 05:03 MCHC 34.4 g/dL (33.0-35.0) 06/07/23 05:03 RDW 14.0 % (11.6-16.5) 06/07/23 05:03 Plt Count 260 X10^3/uL (150.0-450.0) 06/07/23 05:03 MPV 8.8 fL (7.4-11.0) 06/07/23 05:03 Neut % (Auto) 76.3 % (42.0-75.0) H 06/07/23 05:03 Lymph % (Auto) 12.9 % (21.0-51.0) L 06/07/23 05:03 [place] % (Auto) 10.2 % (0.0-13.0) 06/07/23 05:03 Eos % (Auto) 0.1 % (0.9-2.9) L 06/07/23 05:03 Baso % (Auto) 0.5 % (0.2-1.0) 06/07/23 05:03 Neut # (Auto) 5.2 x10^3/uL (2.2-4.8) H 06/07/23 05:03 Lymph # (Auto) 0.9 X10^3/uL (1.3-2.9) L 06/07/23 05:03 [place] # (Auto) 0.7 x10^3/uL (0.3-0.8) 06/07/23 05:03 Eos # (Auto) 0.0 x10^3/uL (0.0-0.2) 06/07/23 05:03 Baso # (Auto) 0.0 X10^3/uL (0.0-0.1) 06/07/23 05:03 Absolute Nucleated RBC 0.1 /100WBC 06/07/23 05:03 Sodium 134 mmol/L (136-145) L 06/07/23 05:03 Corrected Sodium TNP 06/07/23 05:03 Potassium 4.5 mmol/L (3.5-5.1) 06/07/23 05:03 Chloride 99 mmol/L (98-107) 06/07/23 05:03 Carbon Dioxide 21.2 mmol/L (21-32) 06/07/23 05:03 BUN 9 mg/dL (7-18) 06/07/23 05:03 Creatinine 0.46 mg/dL (0.55-1.02) L 06/07/23 05:03 Est GFR (MDRD) Af Amer > 60 (>60) 06/07/23 05:03 Est GFR (MDRD) Non-Af > 60 (>60) 06/07/23 05:03 Glucose 102 mg/dL (65-99) H 06/07/23 05:03 Calcium 8.4 mg/dL (8.5-10.1) L 06/07/23 05:03 Corrected Calcium 9.3 mg/dL (8.5-10.1) 06/07/23 05:03 Magnesium 2.2 mg/dL (2.0-2.9) 06/02/23 19:55 Total Bilirubin 1.10 mg/dL (0.2-1.0) H 06/07/23 05:03 AST 25 Units/L (15-37) 06/07/23 05:03 ALT 16 Units/L (12-78) 06/07/23 05:03 Alkaline Phosphatase 72 Units/L (46-116) 06/07/23 05:03 Total Protein 6.5 g/dL (6.4-8.2) 06/07/23 05:03 Albumin 2.9 g/dL (3.4-5.0) L 06/07/23 05:03 Globulin 3.6 g/dL (2.5-4.5) 06/07/23 05:03 Albumin/Globulin Ratio 0.8 Ratio (1.1-2.1) L 06/07/23 05:03 Lipase 77 Units/L (73-393) 06/02/23 19:55 Specimen Type Catherized urine 06/02/23 22:02 Urine Color Straw (YELLOW) 06/02/23 22:02 Urine Appearance Clear (CLEAR) 06/02/23 22:02 Urine pH 7.0 (5.0 - 8.0) 06/02/23 22:02 Ur Specific [place] 1.010 (1.000-1.030) 06/02/23 22:02 Urine Protein Negative (NEGATIVE) 06/02/23 22:02 Urine Glucose (UA) Negative (NEGATIVE) 06/02/23 22: Urine Ketones Negative (NEGATIVE) 06/02/23 22: Urine Blood Negative (NEGATIVE) 06/02/23 22: Urine Nitrite Negative (NEGATIVE) 06/02/23 22: Urine Bilirubin Negative (NEGATIVE) 06/02/23 22: Urine Urobilinogen Normal (NORMAL) 06/02/23 22: Ur Leukocyte Esterase Negative (NEGATIVE) 06/02/23 22:02 Plan (1) Intractable low back pain: Status: Acute Plan: We will start a Duragesic patch 12 mcg every 72 hours. We also give her as needed IV morphine sulfate as needed. We will go ahead and plan to do a CT of her lumbar spine today. (2) Generalized weakness: Status: Acute Plan: Monitor for improvement. We will also plan on physical therapy consultation pending the outcome/results of her CT scan of her lumbar spine. (3) Depression with anxiety: Status: Acute Plan: Continue to monitor to see if the patient needs treatment. (4) Hypertension: Status: None Plan: Monitor daily blood pressures. (5) Generalized weakness: Status: Acute Plan: Physical therapy consultation. Review patient's labs.
--- NOTE | 2023-06-07 20:37 | PCM.PROG ---
Progress Note Progress Note for Day of Date of Exam: 06/06/23 Subjective Subjective: The patient still has not moved her bowels. She is having worsening abdominal distention and she has diffuse tympany now. I will have him placed NG tube today and do a surgical consult with general surgeon, Dr. Mooney. Follow-up with general surgery recommendations. Continue pain control. Labs reviewed today as well as vital signs and they all remained stable. Recheck routine labs tomorrow morning. Check KUB today as well. Past Medical Family Social History Allergies: Allergies benzonatate [From Tessalon Perles] Allergy (Verified 06/02/23 19:37) meperidine [From Demerol] Allergy (Verified 06/02/23 19:37) Penicillins Allergy (Verified 06/02/23 19:37) rofecoxib [From Vioxx] Allergy (Verified 06/02/23 19:37) WATER PILLS Allergy (Uncoded 06/02/23 19:37) Review of Systems ROS: No change since H&P Vital Signs and I&O's Vital Signs: Vital Signs Temperature 98.8 F Pulse Rate [Left Brachial] 86 Respiratory Rate 20 Blood Pressure [Left Arm] 112/59 O2 Sat by Pulse Oximetry 94 Intake and Output: Intake & Output 06/05/23 06/06/23 06/07/23 06/08/23 11:59 11:59 11:59 11:59 Intake Total 2401 / 2401 1903 / 1903 1947 / 1947 797 / 797 Output Total 1900 / 1900 1954 / 1954 3200 / 3200 725 / 725 Balance 501 / 501 -52 / -52 -1252 / -1252 72 / 72 Physical Exam Oriented: Normal, Time, Person and Place Eyes: Normal; negative Blurred Vision, Diplopia, Discharge, Redness or Phot ophobia Ear: Normal Nose: Normal Throat: Normal Respiratory: Normal Cardiovascular: Normal : Normal Auscultation: Bowel Sounds: Normal Tenderness: RLQ and Other (moderate distention , tympanic ,lower tenderness , BS+) Skin: Normal Psychiatric: Anxiety Mood Description: Depressed and Anxious Affect: Anxious and Depressed; negative Angry, Flat, Hysterical, Quiet or Violent Speech Pattern: Clear and Appropriate Laboratory and Diagnostics 06/07/23 05:03 06/07/23 05:03 Labs: Laboratory WBC 6.9 X10^3/uL (3.6-10.0) 06/07/23 05:03 RBC 3.98 X10^6/uL (3.5-5.4) 06/07/23 05:03 Hgb 12.9 g/dL (12.0-16.0) 06/07/23 05:03 Hct 37.5 % (36.0-47.0) 06/07/23 05:03 MCV 94.3 fL (80.0-100.0) 06/07/23 05:03 MCH 32.5 pg (27.0-34.0) 06/07/23 05:03 MCHC 34.4 g/dL (33.0-35.0) 06/07/23 05:03 RDW 14.0 % (11.6-16.5) 06/07/23 05:03 Plt Count 260 X10^3/uL (150.0-450.0) 06/07/23 05:03 MPV 8.8 fL (7.4-11.0) 06/07/23 05:03 Neut % (Auto) 76.3 % (42.0-75.0) H 06/07/23 05:03 Lymph % (Auto) 12.9 % (21.0-51.0) L 06/07/23 05:03 [place] % (Auto) 10.2 % (0.0-13.0) 06/07/23 05:03 Eos % (Auto) 0.1 % (0.9-2.9) L 06/07/23 05:03 Baso % (Auto) 0.5 % (0.2-1.0) 06/07/23 05:03 Neut # (Auto) 5.2 x10^3/uL (2.2-4.8) H 06/07/23 05:03 Lymph # (Auto) 0.9 X10^3/uL (1.3-2.9) L 06/07/23 05:03 [place] # (Auto) 0.7 x10^3/uL (0.3-0.8) 06/07/23 05:03 Eos # (Auto) 0.0 x10^3/uL (0.0-0.2) 06/07/23 05:03 Baso # (Auto) 0.0 X10^3/uL (0.0-0.1) 06/07/23 05:03 Absolute Nucleated RBC 0.1 /100WBC 06/07/23 05:03 Sodium 134 mmol/L (136-145) L 06/07/23 05:03 Corrected Sodium TNP 06/07/23 05:03 Potassium 4.5 mmol/L (3.5-5.1) 06/07/23 05:03 Chloride 99 mmol/L (98-107) 06/07/23 05:03 Carbon Dioxide 21.2 mmol/L (21-32) 06/07/23 05:03 BUN 9 mg/dL (7-18) 06/07/23 05:03 Creatinine 0.46 mg/dL (0.55-1.02) L 06/07/23 05:03 Est GFR (MDRD) Af Amer > 60 (>60) 06/07/23 05:03 Est GFR (MDRD) Non-Af > 60 (>60) 06/07/23 05:03 Glucose 102 mg/dL (65-99) H 06/07/23 05:03 Calcium 8.4 mg/dL (8.5-10.1) L 06/07/23 05:03 Corrected Calcium 9.3 mg/dL (8.5-10.1) 06/07/23 05:03 Magnesium 2.2 mg/dL (2.0-2.9) 06/02/23 19:55 Total Bilirubin 1.10 mg/dL (0.2-1.0) H 06/07/23 05:03 AST 25 Units/L (15-37) 06/07/23 05:03 ALT 16 Units/L (12-78) 06/07/23 05:03 Alkaline Phosphatase 72 Units/L (46-116) 06/07/23 05:03 Total Protein 6.5 g/dL (6.4-8.2) 06/07/23 05:03 Albumin 2.9 g/dL (3.4-5.0) L 06/07/23 05:03 Globulin 3.6 g/dL (2.5-4.5) 06/07/23 05:03 Albumin/Globulin Ratio 0.8 Ratio (1.1-2.1) L 06/07/23 05:03 Lipase 77 Units/L (73-393) 06/02/23 19:55 Specimen Type Catherized urine 06/02/23 22:02 Urine Color Straw (YELLOW) 06/02/23 22:02 Urine Appearance Clear (CLEAR) 06/02/23 22:02 Urine pH 7.0 (5.0 - 8.0) 06/02/23 22:02 Ur Specific [place] 1.010 (1.000-1.030) 06/02/23 22:02 Urine Protein Negative (NEGATIVE) 06/02/23 22:02 Urine Glucose (UA) Negative (NEGATIVE) 06/02/23 22:02 Urine Ketones Negative (NEGATIVE) 06/02/23 22:02 Urine Blood Negative (NEGATIVE) 06/02/23 22: Urine Nitrite Negative (NEGATIVE) 06/02/23 22:02 Urine Bilirubin Negative (NEGATIVE) 06/02/23 22:02 Urine Urobilinogen Normal (NORMAL) 06/02/23 22:02 Ur Leukocyte Esterase Negative (NEGATIVE) 06/02/23 22:02 Plan (1) Intractable low back pain: Status: Acute Plan: We will start a Duragesic patch 12 mcg every 72 hours. We also give her as needed IV morphine sulfate as needed. We will go ahead and plan to do a CT of her lumbar spine today. (2) Generalized weakness: Status: Acute Plan: Monitor for improvement. We will also plan on physical therapy consultation pending the outcome/results of her CT scan of her lumbar spine. (3) Depression with anxiety: Status: Acute Plan: Continue to monitor to see if the patient needs treatment. (4) Hypertension: Status: None Plan: Monitor daily blood pressures. (5) Generalized weakness: Status: Acute Plan: Physical therapy consultation. Review patient's labs.
--- NOTE | 2023-06-07 20:39 | PCM.PROG ---
Progress Note Progress Note for Day of Date of Exam: 06/07/23 Subjective Subjective: The patient has had [address] Mooney our general surgeon has seen the patient and feels like she has ileus. It sounds like he is resolving after the placement of the NG tube yesterday. I will go ahead and have them pull it today since her symptoms are resolving and started on clear fluids. Again today her vital signs and labs are within normal limits and nothing needs a dressing there. We will advance her diet as tolerated. Possible discharge home beginning of the week which is in a couple days from now. Repeat routine labs tomorrow morning. Past Medical Family Social History Allergies: Allergies benzonatate [From Tessalon Perles] Allergy (Verified 06/02/23 19:37) meperidine [From Demerol] Allergy (Verified 06/02/23 19:37) Penicillins Allergy (Verified 06/02/23 19:37) rofecoxib [From Vioxx] Allergy (Verified 06/02/23 19:37) WATER PILLS Allergy (Uncoded 06/02/23 19:37) Review of Systems ROS: No change since H&P Vital Signs and I&O's Vital Signs: Vital Signs Temperature 98.8 F Pulse Rate [Left Brachial] 86 Respiratory Rate 20 Blood Pressure [Left Arm] 112/59 O2 Sat by Pulse Oximetry 94 Intake and Output: Intake & Output 06/05/23 06/06/23 06/07/23 06/08/23 11:59 11:59 11:59 11:59 Intake Total 2401 / 2401 1903 / 1903 1947 / 1947 797 / 797 Output Total 1900 / 1900 1954 / 1954 3200 / 3200 725 / 725 Balance 501 / 501 -52 / -52 -1252 / -1252 72 / 72 Physical Exam Oriented: Normal, Time, Person and Place Eyes: Normal; negative Blurred Vision, Diplopia, Discharge, Redness or Photophobia Ear: Normal Nose: Normal Throat: Normal Respiratory: Normal Cardiovascular: Normal : Normal Auscultation: Bowel Sounds: Normal Tenderness: RLQ and Other (moderate distention , tympanic ,lower tenderness , BS+) Skin: Normal Psychiatric: Anxiety Mood Description: Depressed and Anxious Affect: Anxious and Depressed; negative Angry, Flat, Hysterical, Quiet or Violent Speech Pattern: Clear and Appropriate Laboratory and Diagnostics 06/07/23 05:03 06/07/23 05:03 Labs: Laboratory WBC 6.9 X10^3/uL (3.6-10.0) 06/07/23 05:03 RBC 3.98 X10^6/uL (3.5-5.4) 06/07/23 05:03 Hgb 12.9 g/dL (12.0-16.0) 06/07/23 05:03 Hct 37.5 % (36.0-47.0) 06/07/23 05:03 MCV 94.3 fL (80.0-100.0) 06/07/23 05:03 MCH 32.5 pg (27.0-34.0) 06/07/23 05:03 MCHC 34.4 g/dL (33.0-35.0) 06/07/23 05:03 RDW 14.0 % (11.6-16.5) 06/07/23 05:03 Plt Count 260 X10^3/uL (150.0-450.0) 06/07/23 05:03 MPV 8.8 fL (7.4-11.0) 06/07/23 05:03 Neut % (Auto) 76.3 % (42.0-75.0) H 06/07/23 05:03 Lymph % (Auto) 12.9 % (21.0-51.0) L 06/07/23 05:03 [place] % (Auto) 10.2 % (0.0-13.0) 06/07/23 05:03 Eos % (Auto) 0.1 % (0.9-2.9) L 06/07/23 05:03 Baso % (Auto) 0.5 % (0.2-1.0) 06/07/23 05:03 Neut # (Auto) 5.2 x10^3/uL (2.2-4.8) H 06/07/23 05:03 Lymph # (Auto) 0.9 X10^3/uL (1.3-2.9) L 06/07/23 05:03 [place] # (Auto) 0.7 x10^3/uL (0.3-0.8) 06/07/23 05:03 Eos # (Auto) 0.0 x10^3/uL (0.0-0.2) 06/07/23 05:03 Baso # (Auto) 0.0 X10^3/uL (0.0-0.1) 06/07/23 05:03 Absolute Nucleated RBC 0.1 /100WBC 06/07/23 05:03 Sodium 134 mmol/L (136-145) L 06/07/23 05:03 Corrected Sodium TNP 06/07/23 05:03 Potassium 4.5 mmol/L (3.5-5.1) 06/07/23 05:03 Chloride 99 mmol/L (98-107) 06/07/23 05:03 Carbon Dioxide 21.2 mmol/L (21-32) 06/07/23 05:03 BUN 9 mg/dL (7-18) 06/07/23 05:03 Creatinine 0.46 mg/dL (0.55-1.02) L 06/07/23 05:03 Est GFR (MDRD) Af Amer > 60 (>60) 06/07/23 05:03 Est GFR (MDRD) Non-Af > 60 (>60) 06/07/23 05:03 Glucose 102 mg/dL (65-99) H 06/07/23 05:03 Calcium 8.4 mg/dL (8.5-10.1) L 06/07/23 05:03 Corrected Calcium 9.3 mg/dL (8.5-10.1) 06/07/23 05:03 Magnesium 2.2 mg/dL (2.0-2.9) 06/02/23 19:55 Total Bilirubin 1.10 mg/dL (0.2-1.0) H 06/07/23 05:03 AST 25 Units/L (15-37) 06/07/23 05:03 ALT 16 Units/L (12-78) 06/07/23 05:03 Alkaline Phosphatase 72 Units/L (46-116) 06/07/23 05:03 Total Protein 6.5 g/dL (6.4-8.2) 06/07/23 05:03 Albumin 2.9 g/dL (3.4-5.0) L 06/07/23 05:03 Globulin 3.6 g/dL (2.5-4.5) 06/07/23 05:03 Albumin/Globulin Ratio 0.8 Ratio (1.1-2.1) L 06/07/23 05:03 Lipase 77 Units/L (73-393) 06/02/23 19:55 Specimen Type Catherized urine 06/02/23 22:02 Urine Color Straw (YELLOW) 06/02/23 22:02 Urine Appearance Clear (CLEAR) 06/02/23 22:02 Urine pH 7.0 (5.0 - 8.0) 06/02/23 22:02 Ur Specific [place] 1.010 (1.000-1.030) 06/02/23 22:02 Urine Protein Negative (NEGATIVE) 06/02/23 22:02 Urine Glucose (UA) Negative (NEGATIVE) 06/02/23 22:02 Urine Ketones Negative (NEGATIVE) 06/02/23 22:02 Urine Blood Negative (NEGATIVE) 06/02/23 22:02 Urine Nitrite Negative (NEGATIVE) 06/02/23 22:02 Urine Bilirubin Negative (NEGATIVE) 06/02/23 22:02 Urine Urobilinogen Normal (NORMAL) 06/02/23 22:02 Ur Leukocyte Esterase Negative (NEGATIVE) 06/02/23 22:02 Plan (1) Intractable low back pain: Status: Acute Plan: We will start a Duragesic patch 12 mcg every 72 hours. We also give her as needed IV morphine sulfate as needed. We will go ahead and plan to do a CT of her lumbar spine today. (2) Generalized weakness: Status: Acute Plan: Monitor for improvement. We will also plan on physical therapy consultation pending the outcome/results of her CT scan of her lumbar spine. (3) Depression with anxiety: Status: Acute Plan: Continue to monitor to see if the patient needs treatment. (4) Hypertension: Status: None Plan: Monitor daily blood pressures. (5) Generalized weakness: Status: Acute Plan: Physical therapy consultation. Review patient's labs.
[2023-06-08 05:43] LABS: BASOPHILS % (AUTO) 0.9 % (0.2-1.0); EOSINOPHILS # (AUTO) 0.2 x10^3/uL (0.0-0.2); EOSINOPHILS % (AUTO) 4.1 % (0.9-2.9); HEMATOCRIT 34.3 % (36.0-47.0); HEMOGLOBIN 11.7 g/dL (12.0-16.0); LYMPHOCYTES # (AUTO) 1.1 X10^3/uL (1.3-2.9); LYMPHOCYTES % (AUTO) 24.6 % (21.0-51.0); MEAN CORPUSCULAR HEMOGLOBIN 32.1 pg (27.0-34.0); MEAN CORPUSCULAR HGB CONC 34.2 g/dL (33.0-35.0); MEAN CORPUSCULAR VOLUME 93.9 fL (80.0-100.0); MEAN PLATELET VOLUME 7.4 fL (7.4-11.0); MONOCYTES # (AUTO) 0.6 x10^3/uL (0.3-0.8); MONOCYTES % (AUTO) 13.1 % (0.0-13.0); NEUTROPHILS # (AUTO) 2.5 x10^3/uL (2.2-4.8); NEUTROPHILS % (AUTO) 57.3 % (42.0-75.0); PLATELET COUNT 223 X10^3/uL (150.0-450.0); RED BLOOD COUNT 3.65 X10^6/uL (3.5-5.4); RED CELL DISTRIBUTION WIDTH 14.1 % (11.6-16.5); WHITE BLOOD COUNT 4.3 X10^3/uL (3.6-10.0)
[2023-06-08 05:58] LABS: ALANINE AMINOTRANSFERASE 14 Units/L (12-78); ALBUMIN 2.6 g/dL (3.4-5.0); ALKALINE PHOSPHATASE 59 Units/L (46-116); ASPARTATE AMINO TRANSFERASE 18 Units/L (15-37); BLOOD UREA NITROGEN 9 mg/dL (7-18); CHLORIDE 103 mmol/L (98-107); COR CA(FOR HYPOALB) 9.1 mg/dL (8.5-10.1); CREATININE 0.43 mg/dL (0.55-1.02); GLUCOSE 89 mg/dL (65-99); POTASSIUM 3.3 mmol/L (3.5-5.1); SODIUM 137 mmol/L (136-145); TOTAL PROTEIN 5.7 g/dL (6.4-8.2); eGFR NON BLACK RACES > 60 (>60)
--- NOTE | 2023-06-08 06:43 | RAD ---
EXAM:KUBHISTORY:Ileus distentionCOMPARISON:June 07, 2023FINDINGS:There is increasing selective small-bowel dilatation with paucity of colon gas. There is no evidence for developing mass, ascites or other complication.IMPRESSION:Findings consistent with at least partial SBO.THIS IS AN ELECTRONICALLY VERIFIED FINAL REPORT06/08/2023 6:40 AM - Electronically signed by Samir Polanco MD
[2023-06-08] MEDS ORDERED: CONSULT PHARMACY - POTASSIUM & MAGNESIUM XX SCH ×3 (07:00→11:00)
[2023-06-08] MEDS: PROTONIX INJ 40 MG VIAL IVP SCH ×2 (08:11→20:15)
[2023-06-08] MEDS: NS + KCL 20 MEQ/L 1,000 ML IV SCH ×2 (08:12→20:33)
[2023-06-08] MEDS: LOVENOX INJ 40 MG SYR SC SCH (08:12)
[2023-06-08] MEDS ORDERED: CHLORASEPTIC SPRAY MT PRN (08:29)
[2023-06-08] MEDS ORDERED: KLOR-CON PO SCH (09:00)
[2023-06-08] MEDS ORDERED: K-DUR TAB 20 MEQ PO ONE (11:00)
[2023-06-08] MEDS: LINZESS PO SCH (11:52)
--- NOTE | 2023-06-08 12:30 | DR.PROGNOT ---
HOSPITAL PROGRESS NOTE Progress Note for Day of: Progress Note Date: 06/08/23 Chief Complaint Chief Complaint: had soft BM with the enema . still with moderate diatention. KUB still showing dilated small loops and partial SBO. normal CBC . afebrile . abd is tympanic with normal BS . Past Medical Family Social History Allergies: Allergies benzonatate [From Tessalon Perles] Allergy (Verified 06/02/23 19:37) meperidine [From Demerol] Allergy (Verified 06/02/23 19:37) Penicillins Allergy (Verified 06/02/23 19:37) rofecoxib [From Vioxx] Allergy (Verified 06/02/23 19:37) WATER PILLS Allergy (Uncoded 06/02/23 19:37) Review Of Systems ROS: No change since H&P Vital Signs Vital Signs: Vital Signs Temperature 98.0 F Temperature 97.9 F Pulse Rate [Left Brachial] 59 Pulse Rate [Left Brachial] 118 Respiratory Rate 20 Respiratory Rate 20 Blood Pressure [Left Arm] 105/52 Blood Pressure [Left Arm] 136/65 O2 Sat by Pulse Oximetry 96 O2 Sat by Pulse Oximetry 96 Physical Exam Oriented: Normal, Time, Person and Place Eyes: Normal; negative Blurred Vision, Diplopia, Discharge, Redness or Photophobia Ear: Normal Nose: Normal Throat: Normal Respiratory: Normal Cardiovascular: Normal : Normal GI:Auscultation: Normal GI:Palpation: Normal GI: Tenderness: RLQ and Other (moderate distention , tympanic ,lower tenderness , BS+) Skin: Normal Psychiatric: Anxiety Mood Description: Depressed and Anxious Affect: Anxious and Depressed; negative Angry, Flat, Hysterical, Quiet or Violent Speech Pattern: Clear and Appropriate Laboratory and Diagnostics 06/08/23 05:26 06/08/23 05:26 Labs: Laboratory WBC 4.3 X10^3/uL (3.6-10.0) 06/08/23 05:26 RBC 3.65 X10^6/uL (3.5-5.4) 06/08/23 05:26 Hgb 11.7 g/dL (12.0-16.0) L 06/08/23 05:26 Hct 34.3 % (36.0-47.0) L 06/08/23 05:26 MCV 93.9 fL (80.0-100.0) 06/08/23 05:26 MCH 32.1 pg (27.0-34.0) 06/08/23 05:26 MCHC 34.2 g/dL (33.0-35.0) 06/08/23 05:26 RDW 14.1 % (11.6-16.5) 06/08/23 05:26 Plt Count 223 X10^3/uL (150.0-450.0) 06/08/23 05:26 MPV 7.4 fL (7.4-11.0) 06/08/23 05:26 Neut % (Auto) 57.3 % (42.0-75.0) 06/08/23 05:26 Lymph % (Auto) 24.6 % (21.0-51.0) 06/08/23 05:26 [place] % (Auto) 13.1 % (0.0-13.0) H 06/08/23 05:26 Eos % (Auto) 4.1 % (0.9-2.9) H 06/08/23 05:26 Baso % (Auto) 0.9 % (0.2-1.0) 06/08/23 05:26 Neut # (Auto) 2.5 x10^3/uL (2.2-4.8) 06/08/23 05:26 Lymph # (Auto) 1.1 X10^3/uL (1.3-2.9) L 06/08/23 05:26 [place] # (Auto) 0.6 x10^3/uL (0.3-0.8) 06/08/23 05:26 Eos # (Auto) 0.2 x10^3/uL (0.0-0.2) 06/08/23 05:26 Baso # (Auto) 0.0 X10^3/uL (0.0-0.1) 06/08/23 05:26 Absolute Nucleated RBC 0.2 /100WBC 06/08/23 05:26 Sodium 137 mmol/L (136-145) 06/08/23 05:26 Corrected Sodium TNP 06/08/23 05:26 Potassium 3.3 mmol/L (3.5-5.1) L 06/08/23 05:26 Chloride 103 mmol/L (98-107) 06/08/23 05:26 Carbon Dioxide 24.0 mmol/L (21-32) 06/08/23 05:26 BUN 9 mg/dL (7-18) 06/08/23 05:26 Creatinine 0.43 mg/dL (0.55-1.02) L 06/08/23 05:26 Est GFR (MDRD) Af Amer > 60 (>60) 06/08/23 05:26 Est GFR (MDRD) Non-Af > 60 (>60) 06/08/23 05:26 Glucose 89 mg/dL (65-99) 06/08/23 05:26 Calcium 8.0 mg/dL (8.5-10.1) L 06/08/23 05:26 Corrected Calcium 9.1 mg/dL (8.5-10.1) 06/08/23 05:26 Magnesium 2.0 mg/dL (2.0-2.9) 06/08/23 05:26 Total Bilirubin 0.80 mg/dL (0.2-1.0) 06/08/23 05:26 AST 18 Units/L (15-37) 06/08/23 05:26 ALT 14 Units/L (12-78) 06/08/23 05:26 Alkaline Phosphatase 59 Units/L (46-116) 06/08/23 05:26 Total Protein 5.7 g/dL (6.4-8.2) L 06/08/23 05:26 Albumin 2.6 g/dL (3.4-5.0) L 06/08/23 05:26 Globulin 3.1 g/dL (2.5-4.5) 06/08/23 05:26 Albumin/Globulin Ratio 0.8 Ratio (1.1-2.1) L 06/08/23 05:26 Lipase 77 Units/L (73-393) 06/02/23 19:55 Specimen Type Catherized urine 06/02/23 22:02 Urine Color Straw (YELLOW) 06/02/23 22:02 Urine Appearance Clear (CLEAR) 06/02/23 22:02 Urine pH 7.0 (5.0 - 8.0) 06/02/23 22:02 Ur Specific [place] 1.010 (1.000-1.030) 06/02/23 22:02 Urine Protein Negative (NEGATIVE) 06/02/23 22:02 Urine Glucose (UA) Negative (NEGATIVE) 06/02/23 22:02 Urine Ketones Negative (NEGATIVE) 06/02/23 22:02 Urine Blood Negative (NEGATIVE) 06/02/23 22:02 Urine Nitrite Negative (NEGATIVE) 06/02/23 22:02 Urine Bilirubin Negative (NEGATIVE) 06/02/23 22:02 Urine Urobilinogen Normal (NORMAL) 06/02/23 22:02 Ur Leukocyte Esterase Negative (NEGATIVE) 06/02/23 22:02 Assessment and Plan 1: partial SBO . abdominal adhesions . to keep on full liquid today . KUB in am . Problem Patient Problems: Patient Problems (Updated 06/02/23 @ 19:57 by Andrew Alonzo) Intractable low back pain (Acute) M54.59
[2023-06-08] MEDS ORDERED: VALIUM INJ IVP PRN (15:03)
[2023-06-08 15:29] LABS: BILIRUBIN,URINE NEGATIVE (NEGATIVE); BLOOD/HEMOGLOBIN,URINE 1+ (NEGATIVE); GLUCOSE, URINE NEGATIVE (NEGATIVE); KETONES,URINE 3+ (NEGATIVE); LEUKOCYTE ESTERASE ,URINE 2+ (NEGATIVE); NITRITES,URINE POSITIVE (NEGATIVE); PROTEIN,URINE NEGATIVE (NEGATIVE); UROBILINOGEN,URINE NORMAL (NORMAL)
[2023-06-08 15:38] LABS: APPEARANCE,URINE CLEAR (CLEAR); COLOR,URINE YELLOW (YELLOW); SQUAMOUS EPITHELIAL CELL,UR RARE /HPF (NEGATIVE)
[2023-06-08 15:39] LABS: BACTERIA,URINE 2+ /HPF (NEGATIVE)
[2023-06-08] MEDS: ROCEPHIN VIAL 1 GRAM 1 G in NS 100 ML IV 100 ML IV SCH (17:27)
--- NOTE | 2023-06-08 22:35 | PCM.PROG ---
Progress Note Progress Note for Day of Date of Exam: 06/08/23 Subjective Subjective: The patient had some confusion last night and again after I saw her this morning. But when I saw her this morning, she could answer questions appropriately. We checked a urinalysis, and it showed that she has a urinary tract infection. A culture is being set up for this. In the meantime, we will go ahead and start her on Rocephin and adjust antibiotics accordingly once we have the culture and sensitivity back. She reports that her abdomen is feeling much better and not having pain now. It seems like her ileus has resolved even though her KUB read as a partial small bowel obstruction this morning. Her pain seems to be fairly well controlled, and I informed her that the orthopedic surgeon was consulted and has put in order for a back brace secondary to her compression fracture. In the meantime, we will continue pain control and see how she does with physical therapy on Saturday, which is 2 days from now. Past Medical Family Social History Allergies: Allergies benzonatate [From Tessalon Perles] Allergy (Verified 06/02/23 19:37) meperidine [From Demerol] Allergy (Verified 06/02/23 19:37) Penicillins Allergy (Verified 06/02/23 19:37) rofecoxib [From Vioxx] Allergy (Verified 06/02/23 19:37) WATER PILLS Allergy (Uncoded 06/02/23 19:37) Review of Systems ROS: No change since H&P Vital Signs and I&O's Vital Signs: Vital Signs Temperature 98.9 F Temperature 97.6 F Pulse Rate [Left Brachial] 83 Pulse Rate [Left Brachial] 73 Respiratory Rate 18 Respiratory Rate 20 Blood Pressure [Left Arm] 102/58 Blood Pressure [Left Arm] 123/85 O2 Sat by Pulse Oximetry 94 O2 Sat by Pulse Oximetry 93 Intake and Output: Intake & Output 06/06/23 06/07/23 06/08/23 06/09/23 11:59 11:59 11:59 11:59 Intake Total 1902 / 1902 1947 / 1947 2383 / 2383 1051 / 1051 Output Total 1954 3200 / 3200 1075 / 1075 600 / 600 Balance -52 / -52 -1252 / -1252 1308 / 1308 451 / 451 Physical Exam Oriented: Normal, Time, Person and Place Eyes: Normal; negative Blurred Vision, Diplopia, Discharge, Redness or Photophobia Ear: Normal Nose: Normal Throat: Normal Respiratory: Normal Cardiovascular: Normal : Normal Auscultation: Bowel Sounds: Normal Tenderness: RLQ and Other (moderate distention , tympanic ,lower tenderness , BS+) Skin: Normal Musculoskeletal: Back:Lumbar, Tender and Instability Psychiatric: Anxiety Mood Description: Depressed and Anxious Affect: Anxious and Depressed; negative Angry, Flat, Hysterical, Quiet or Violent Speech Pattern: Clear and Appropriate Laboratory and Diagnostics 06/08/23 05:26 06/08/23 05:26 Labs: Laboratory WBC 4.3 X10^3/uL (3.6-10.0) 06/08/23 05:26 RBC 3.65 X10^6/uL (3.5-5.4) 06/08/23 05:26 Hgb 11.7 g/dL (12.0-16.0) L 06/08/23 05:26 Hct 34.3 % (36.0-47.0) L 06/08/23 05:26 MCV 93.9 fL (80.0-100.0) 06/08/23 05:26 MCH 32.1 pg (27.0-34.0) 06/08/23 05:26 MCHC 34.2 g/dL (33.0-35.0) 06/08/23 05:26 RDW 14.1 % (11.6-16.5) 06/08/23 05:26 Plt Count 223 X10^3/uL (150.0-450.0) 06/08/23 05:26 MPV 7.4 fL (7.4-11.0) 06/08/23 05:26 Neut % (Auto) 57.3 % (42.0-75.0) 06/08/23 05:26 Lymph % (Auto) 24.6 % (21.0-51.0) 06/08/23 05:26 [place] % (Auto) 13.1 % (0.0-13.0) H 06/08/23 05:26 Eos % (Auto) 4.1 % (0.9-2.9) H 06/08/23 05:26 Baso % (Auto) 0.9 % (0.2-1.0) 06/08/23 05:26 Neut # (Auto) 2.5 x10^3/uL (2.2-4.8) 06/08/23 05:26 Lymph # (Auto) 1.1 X10^3/uL (1.3-2.9) L 06/08/23 05:26 [place] # (Auto) 0.6 x10^3/uL (0.3-0.8) 06/08/23 05:26 Eos # (Auto) 0.2 x10^3/uL (0.0-0.2) 06/08/23 05:26 Baso # (Auto) 0.0 X10^3/uL (0.0-0.1) 06/08/23 05:26 Absolute Nucleated RBC 0.2 /100WBC 06/08/23 05:26 Sodium 137 mmol/L (136-145) 06/08/23 05:26 Corrected Sodium TNP 06/08/23 05:26 Potassium 3.3 mmol/L (3.5-5.1) L 06/08/23 05:26 Chloride 103 mmol/L (98-107) 06/08/23 05:26 Carbon Dioxide 24.0 mmol/L (21-32) 06/08/23 05:26 BUN 9 mg/dL (7-18) 06/08/23 05:26 Creatinine 0.43 mg/dL (0.55-1.02) L 06/08/23 05:26 Est GFR (MDRD) Af Amer > 60 (>60) 06/08/23 05:26 Est GFR (MDRD) Non-Af > 60 (>60) 06/08/23 05:26 Glucose 89 mg/dL (65-99) 06/08/23 05:26 Calcium 8.0 mg/dL (8.5-10.1) L 06/08/23 05:26 Corrected Calcium 9.1 mg/dL (8.5-10.1) 06/08/23 05:26 Magnesium 2.0 mg/dL (2.0-2.9) 06/08/23 05:26 Total Bilirubin 0.80 mg/dL (0.2-1.0) 06/08/23 05:26 AST 18 Units/L (15-37) 06/08/23 05:26 ALT 14 Units/L (12-78) 06/08/23 05:26 Alkaline Phosphatase 59 Units/L (46-116) 06/08/23 05:26 Total Protein 5.7 g/dL (6.4-8.2) L 06/08/23 05:26 Albumin 2.6 g/dL (3.4-5.0) L 06/08/23 05:26 Globulin 3.1 g/dL (2.5-4.5) 06/08/23 05:26 Albumin/Globulin Ratio 0.8 Ratio (1.1-2.1) L 06/08/23 05:26 Lipase 77 Units/L (73-393) 06/02/23 19:55 Specimen Type Clean catch urine 06/08/23 15:25 Urine Color Yellow (YELLOW) 06/08/23 15:25 Urine Appearance Clear (CLEAR) 06/08/23 15:25 Urine pH 5.0 (5.0 - 8.0) 06/08/23 15:25 Ur Specific [place] 1.025 (1.000-1.030) 06/08/23 15:25 Urine Protein Negative (NEGATIVE) 06/08/23 15:25 Urine Glucose (UA) Negative (NEGATIVE) 06/08/23 15:25 Urine Ketones 3+ (NEGATIVE) 06/08/23 15:25 Urine Blood 1+ (NEGATIVE) 06/08/23 15:25 Urine Nitrite Positive (NEGATIVE) 06/08/23 15:25 Urine Bilirubin Negative (NEGATIVE) 06/08/23 15:25 Urine Urobilinogen Normal (NORMAL) 06/08/23 15:25 Ur Leukocyte Esterase 2+ (NEGATIVE) 06/08/23 15:25 Urine RBC 3-5 /HPF (0-3) A 06/08/23 15:25 Urine WBC 3-5 /HPF (0-5) 06/08/23 15:25 Ur Squamous Epith Cells Rare /HPF (NEGATIVE) 06/08/23 15:25 Urine Bacteria 2+ /HPF (NEGATIVE) 06/08/23 15:25 Ur Culture Indicated? Yes/culture set up 06/08/23 15:25 Plan (1) Intractable low back pain: Status: Acute Narrative Support Text: Patient's pain is secondary to a compression fracture in the lumbar spine. Plan: We will start a Duragesic patch 12 mcg every 72 hours. We also give her as needed IV morphine sulfate as needed. We will go ahead and plan to do a CT of her lumbar spine today. Dr. Haro, orthopedic surgeon has ordered a back brace for her compression fracture. At this point time does not come in as soon as it does, we will attach it to her. (2) Generalized weakness: Status: Acute Plan: Monitor for improvement. We will also plan on physical therapy cons ultation pending the outcome/results of her CT scan of her lumbar spine. (3) Depression with anxiety: Status: Acute Plan: Continue to monitor to see if the patient needs treatment. (4) Hypertension: Status: None Plan: Monitor daily blood pressures. (5) Generalized weakness: Status: Acute Plan: Physical therapy consultation. Review patient's labs. (6) Hypokalemia: Status: Acute Plan: Start potassium replacement protocol. Check magnesium level. (7) Confusion: Status: Acute Plan: Urinalysis was checked and showed the patient has a UTI. (8) Acute UTI: Status: Acute Plan: Start Rocephin 1 g IV daily. Urine culture and sensitivity has been ordered. Follow-up with results when available. (9) Anemia: Status: Acute Plan: Check Hemoccult. Protonix for GI protection.
[2023-06-09 05:19] LABS: BASOPHILS % (AUTO) 0.8 % (0.2-1.0); EOSINOPHILS # (AUTO) 0.1 x10^3/uL (0.0-0.2); EOSINOPHILS % (AUTO) 1.7 % (0.9-2.9); HEMATOCRIT 33.4 % (36.0-47.0); HEMOGLOBIN 11.9 g/dL (12.0-16.0); LYMPHOCYTES # (AUTO) 1.2 X10^3/uL (1.3-2.9); LYMPHOCYTES % (AUTO) 20.9 % (21.0-51.0); MEAN CORPUSCULAR HEMOGLOBIN 33.2 pg (27.0-34.0); MEAN CORPUSCULAR HGB CONC 35.6 g/dL (33.0-35.0); MEAN CORPUSCULAR VOLUME 93.3 fL (80.0-100.0); MONOCYTES # (AUTO) 0.7 x10^3/uL (0.3-0.8); MONOCYTES % (AUTO) 11.6 % (0.0-13.0); NEUTROPHILS # (AUTO) 3.6 x10^3/uL (2.2-4.8); PLATELET COUNT 233 X10^3/uL (150.0-450.0); RED BLOOD COUNT 3.58 X10^6/uL (3.5-5.4); RED CELL DISTRIBUTION WIDTH 13.9 % (11.6-16.5); WHITE BLOOD COUNT 5.6 X10^3/uL (3.6-10.0)
--- NOTE | 2023-06-09 05:19 | RAD ---
HISTORYABD DISTENTION Relevant Clinical [id number]/30/2023 .br.br.br.br mildly dilated loops of small bowel consistent with obstruction. No pathological soft tissue mass or calcification can be observed. Surgical clips right upper quadrant. The bony structures are grossly intact.IMPRESSIONMultiple mildly dilated loops of small bowel consistent with obstruction.Electronically signed by: George Jones (Jun 09, 2023 05:17:53)
[2023-06-09 05:35] LABS: ALANINE AMINOTRANSFERASE 19 Units/L (12-78); ALBUMIN 2.4 g/dL (3.4-5.0); ALKALINE PHOSPHATASE 56 Units/L (46-116); ASPARTATE AMINO TRANSFERASE 18 Units/L (15-37); BLOOD UREA NITROGEN 7 mg/dL (7-18); CALCIUM 7.8 mg/dL (8.5-10.1); CHLORIDE 104 mmol/L (98-107); COR CA(FOR HYPOALB) 9.1 mg/dL (8.5-10.1); CREATININE 0.45 mg/dL (0.55-1.02); GLUCOSE 108 mg/dL (65-99); MAGNESIUM 1.9 mg/dL (2.0-2.9); POTASSIUM 3.7 mmol/L (3.5-5.1); SODIUM 136 mmol/L (136-145); TOTAL PROTEIN 5.4 g/dL (6.4-8.2); eGFR NON BLACK RACES > 60 (>60)
[2023-06-09] MEDS ORDERED: CONSULT PHARMACY - POTASSIUM & MAGNESIUM XX SCH (06:00)
[2023-06-09] MEDS: NS + KCL 20 MEQ/L 1,000 ML IV SCH ×2 (08:52→23:02)
[2023-06-09] MEDS: ROCEPHIN VIAL 1 GRAM 1 G in NS 100 ML IV 100 ML IV SCH (08:55)
[2023-06-09] MEDS ORDERED: K-DUR TAB 20 MEQ PO SCH (09:00)
[2023-06-09] MEDS: LINZESS PO SCH (09:06)
[2023-06-09] MEDS: MAG-OX TAB PO SCH ×2 (09:06→10:00)
[2023-06-09] MEDS: DURAGESIC 12 MCG/HR PATCH TD SCH (09:06)
[2023-06-09] MEDS: PROTONIX INJ 40 MG VIAL IVP SCH ×2 (09:07→20:53)
[2023-06-09] MEDS: LOVENOX INJ 40 MG SYR SC SCH (09:08)
[2023-06-10 05:25] LABS: MAGNESIUM 1.7 mg/dL (2.0-2.9); POTASSIUM 4.2 mmol/L (3.5-5.1)
--- NOTE | 2023-06-10 05:56 | RAD ---
HISTORYINTRACTABLE BACK PAINS, ABDOMINAL DISTENTION Relevant Clinical [id number]/01/2023 .br.br.br.br mildly dilated loops of large and small bowel suggesting it generalized ileus. No pathological soft tissue mass or calcification can be observed. The bony structures are grossly intact.IMPRESSIONMultiple mildly dilated loops of large and small bowel suggesting generalized ileus.Electronically signed by: George Jones (Jun 10, 2023 05:55:03)
[2023-06-10 06:30] LABS: BASOPHILS # (AUTO) 0.2 X10^3/uL (0.0-0.1); BASOPHILS % (AUTO) 2.5 % (0.2-1.0); EOSINOPHILS # (AUTO) 0.2 x10^3/uL (0.0-0.2); EOSINOPHILS % (AUTO) 3.2 % (0.9-2.9); HEMATOCRIT 34.5 % (36.0-47.0); HEMOGLOBIN 11.9 g/dL (12.0-16.0); LYMPHOCYTES % (AUTO) 16.5 % (21.0-51.0); MEAN CORPUSCULAR HEMOGLOBIN 32.6 pg (27.0-34.0); MEAN CORPUSCULAR HGB CONC 34.6 g/dL (33.0-35.0); MEAN CORPUSCULAR VOLUME 94.1 fL (80.0-100.0); MEAN PLATELET VOLUME 7.8 fL (7.4-11.0); MONOCYTES # (AUTO) 0.5 x10^3/uL (0.3-0.8); MONOCYTES % (AUTO) 7.5 % (0.0-13.0); NEUTROPHILS # (AUTO) 4.4 x10^3/uL (2.2-4.8); NEUTROPHILS % (AUTO) 70.3 % (42.0-75.0); PLATELET COUNT 248 X10^3/uL (150.0-450.0); RED BLOOD COUNT 3.67 X10^6/uL (3.5-5.4); RED CELL DISTRIBUTION WIDTH 14.1 % (11.6-16.5); WHITE BLOOD COUNT 6.3 X10^3/uL (3.6-10.0)
[2023-06-10 06:40] LABS: ALANINE AMINOTRANSFERASE 25 Units/L (12-78); ALBUMIN 2.5 g/dL (3.4-5.0); ALKALINE PHOSPHATASE 63 Units/L (46-116); ASPARTATE AMINO TRANSFERASE 24 Units/L (15-37); BLOOD UREA NITROGEN 4 mg/dL (7-18); CALCIUM 7.9 mg/dL (8.5-10.1); CARBON DIOXIDE 25.3 mmol/L (21-32); CHLORIDE 105 mmol/L (98-107); COR CA(FOR HYPOALB) 9.1 mg/dL (8.5-10.1); COR NA(FOR HYPERGLY) 137 mmol/L (136-145); CREATININE 0.55 mg/dL (0.55-1.02); GLUCOSE 116 mg/dL (65-99); POTASSIUM 4.3 mmol/L (3.5-5.1); SODIUM 137 mmol/L (136-145); TOTAL PROTEIN 5.6 g/dL (6.4-8.2); eGFR NON BLACK RACES > 60 (>60)
[2023-06-10] MEDS ORDERED: CONSULT PHARMACY - POTASSIUM & MAGNESIUM XX SCH (07:00)
--- NOTE | 2023-06-10 08:21 | DR.PROGNOT ---
HOSPITAL PROGRESS NOTE Progress Note for Day of: Progress Note Date: 06/10/23 Chief Complaint Chief Complaint: had soft BM yesterday . Moderate abdominal distention. No nausea or vomiting KUB still showing dilated small loops and partial SBO. normal CBC . afebrile . abd is soft but tympanic with normal BS . Past Medical Family Social History Allergies: Allergies benzonatate [From Tessalon Perles] Allergy (Verified 06/02/23 19:37) meperidine [From Demerol] Allergy (Verified 06/02/23 19:37) Penicillins Allergy (Verified 06/02/23 19:37) rofecoxib [From Vioxx] Allergy (Verified 06/02/23 19:37) WATER PILLS Allergy (Uncoded 06/02/23 19:37) Review Of Systems ROS: No change since H&P Vital Signs Vital Signs: Vital Signs Temperature 98.4 F Pulse Rate [Left Brachial] 73 Respiratory Rate 18 Blood Pressure [Left Arm] 123/68 O2 Sat by Pulse Oximetry 99 Physical Exam Oriented: Normal, Time, Person and Place Eyes: Normal; negative Blurred Vision, Diplopia, Discharge, Redness or Photophobia Ear: Normal Nose: Normal Throat: Normal Respiratory: Normal Cardiovascular: Normal : Normal GI:Auscultation: Normal GI:Palpation: Normal GI: Tenderness: RLQ and Other (moderate distention , tympanic ,lower tenderness , BS+) Skin: Normal Musculoskeletal: Back:Lumbar, Tender and Instability Psychiatric: Anxiety Mood Description: Depressed and Anxious Affect: Anxious and Depressed; negative Angry, Flat, Hysterical, Quiet or Violent Speech Pattern: Clear and Appropriate Laboratory and Diagnostics 06/10/23 04:45 06/10/23 04:45 Labs: 06/08/23 15:25 Urine,Clean Catch Urine Culture - Preliminary Laboratory WBC 6.3 X10^3/uL (3.6-10.0) 06/10/23 04:45 RBC 3.67 X10^6/uL (3.5-5.4) 06/10/23 04:45 Hgb 11.9 g/dL (12.0-16.0) L 06/10/23 04:45 Hct 34.5 % (36.0-47.0) L 06/10/23 04:45 MCV 94.1 fL (80.0-100.0) 06/10/23 04:45 MCH 32.6 pg (27.0-34.0) 06/10/23 04:45 MCHC 34.6 g/dL (33.0-35.0) 06/10/23 04:45 RDW 14.1 % (11.6-16.5) 06/10/23 04:45 Plt Count 248 X10^3/uL (150.0-450.0) 06/10/23 04:45 MPV 7.8 fL (7.4-11.0) 06/10/23 04:45 Neut % (Auto) 70.3 % (42.0-75.0) 06/10/23 04:45 Lymph % (Auto) 16.5 % (21.0-51.0) L 06/10/23 04:45 [place] % (Auto) 7.5 % (0.0-13.0) 06/10/23 04:45 Eos % (Auto) 3.2 % (0.9-2.9) H 06/10/23 04:45 Baso % (Auto) 2.5 % (0.2-1.0) H 06/10/23 04:45 Neut # (Auto) 4.4 x10^3/uL (2.2-4.8) 06/10/23 04:45 Lymph # (Auto) 1.0 X10^3/uL (1.3-2.9) L 06/10/23 04:45 [place] # (Auto) 0.5 x10^3/uL (0.3-0.8) 06/10/23 04:45 Eos # (Auto) 0.2 x10^3/uL (0.0-0.2) 06/10/23 04:45 Baso # (Auto) 0.2 X10^3/uL (0.0-0.1) H 06/10/23 04:45 Absolute Nucleated RBC 0.0 /100WBC 06/10/23 04:45 Sodium 137 mmol/L (136-145) 06/10/23 04:45 Corrected Sodium 137 mmol/L (136-145) 06/10/23 04:45 Potassium 4.2 mmol/L (3.5-5.1) 06/10/23 04:45 Potassium 4.3 mmol/L (3.5-5.1) 06/10/23 04:45 Chloride 105 mmol/L (98-107) 06/10/23 04:45 Carbon Dioxide 25.3 mmol/L (21-32) 06/10/23 04:45 BUN 4 mg/dL (7-18) L 06/10/23 04:45 Creatinine 0.55 mg/dL (0.55-1.02) 06/10/23 04:45 Est GFR (MDRD) Af Amer > 60 (>60) 06/10/23 04:45 Est GFR (MDRD) Non-Af > 60 (>60) 06/10/23 04:45 Glucose 116 mg/dL (65-99) H 06/10/23 04:45 Calcium 7.9 mg/dL (8.5-10.1) L 06/10/23 04:45 Corrected Calcium 9.1 mg/dL (8.5-10.1) 06/10/23 04:45 Magnesium 1.7 mg/dL (2.0-2.9) L 06/10/23 04:45 Total Bilirubin 0.30 mg/dL (0.2-1.0) 06/10/23 04:45 AST 24 Units/L (15-37) 06/10/23 04:45 ALT 25 Units/L (12-78) 06/10/23 04:45 Alkaline Phosphatase 63 Units/L (46-116) 06/10/23 04:45 Total Protein 5.6 g/dL (6.4-8.2) L 06/10/23 04:45 Albumin 2.5 g/dL (3.4-5.0) L 06/10/23 04:45 Globulin 3.1 g/dL (2.5-4.5) 06/10/23 04:45 Albumin/Globulin Ratio 0.8 Ratio (1.1-2.1) L 06/10/23 04:45 Lipase 77 Units/L (73-393) 06/02/23 19:55 Specimen Type Clean catch urine 06/08/23 15:25 Urine Color Yellow (YELLOW) 06/08/23 15:25 Urine Appearance Clear (CLEAR) 06/08/23 15:25 Urine pH 5.0 (5.0 - 8.0) 06/08/23 15:25 Ur Specific [place] 1.025 (1.000-1.030) 06/08/23 15:25 Urine Protein Negative (NEGATIVE) 06/08/23 15:25 Urine Glucose (UA) Negative (NEGATIVE) 06/08/23 15:25 Urine Ketones 3+ (NEGATIVE) 06/08/23 15:25 Urine Blood 1+ (NEGATIVE) 06/08/23 15:25 Urine Nitrite Positive (NEGATIVE) 06/08/23 15:25 Urine Bilirubin Negative (NEGATIVE) 06/08/23 15:25 Urine Urobilinogen Normal (NORMAL) 06/08/23 15:25 Ur Leukocyte Esterase 2+ (NEGATIVE) 06/08/23 15:25 Urine RBC 3-5 /HPF (0-3) A 06/08/23 15:25 Urine WBC 3-5 /HPF (0-5) 06/08/23 15:25 Ur Squamous Epith Cells Rare /HPF (NEGATIVE) 06/08/23 15:25 Urine Bacteria 2+ /HPF (NEGATIVE) 06/08/23 15:25 Ur Culture Indicated? Yes/culture set up 06/08/23 15:25 Assessment and Plan 1: partial SBO . abdominal adhesions . To start on soft diet and observe. Magnesium supplement. Problem Patient Problems: Patient Problems Intractable low back pain (Acute) M54.59
[2023-06-10] MEDS: NS + KCL 20 MEQ/L 1,000 ML with MAGNESIUM SULFATE 50% INJ VIAL 1 G IV SCH ×4 (08:55→20:21)
[2023-06-10] MEDS: PROTONIX INJ 40 MG VIAL IVP SCH ×2 (08:57→20:22)
[2023-06-10] MEDS: ROCEPHIN VIAL 1 GRAM 1 G in NS 100 ML IV 100 ML IV SCH (08:57)
[2023-06-10] MEDS: LINZESS PO SCH (08:58)
[2023-06-10] MEDS ORDERED: MAG-OX TAB PO SCH (09:00)
[2023-06-10] MEDS: LOVENOX INJ 40 MG SYR SC SCH (09:01)
[2023-06-11 05:19] LABS: BASOPHILS # (AUTO) 0.1 X10^3/uL (0.0-0.1); BASOPHILS % (AUTO) 1.4 % (0.2-1.0); EOSINOPHILS # (AUTO) 0.2 x10^3/uL (0.0-0.2); EOSINOPHILS % (AUTO) 2.6 % (0.9-2.9); HEMOGLOBIN 12.4 g/dL (12.0-16.0); LYMPHOCYTES # (AUTO) 1.6 X10^3/uL (1.3-2.9); LYMPHOCYTES % (AUTO) 23.4 % (21.0-51.0); MEAN CORPUSCULAR HEMOGLOBIN 32.5 pg (27.0-34.0); MEAN CORPUSCULAR HGB CONC 34.5 g/dL (33.0-35.0); MEAN CORPUSCULAR VOLUME 94.2 fL (80.0-100.0); MEAN PLATELET VOLUME 7.2 fL (7.4-11.0); MONOCYTES # (AUTO) 0.7 x10^3/uL (0.3-0.8); NEUTROPHILS # (AUTO) 4.3 x10^3/uL (2.2-4.8); NEUTROPHILS % (AUTO) 62.6 % (42.0-75.0); PLATELET COUNT 264 X10^3/uL (150.0-450.0); RED BLOOD COUNT 3.83 X10^6/uL (3.5-5.4); RED CELL DISTRIBUTION WIDTH 14.1 % (11.6-16.5); WHITE BLOOD COUNT 6.9 X10^3/uL (3.6-10.0)
[2023-06-11 05:33] LABS: ALANINE AMINOTRANSFERASE 27 Units/L (12-78); ALBUMIN 2.5 g/dL (3.4-5.0); ALKALINE PHOSPHATASE 64 Units/L (46-116); ASPARTATE AMINO TRANSFERASE 21 Units/L (15-37); BLOOD UREA NITROGEN 3 mg/dL (7-18); CARBON DIOXIDE 26.2 mmol/L (21-32); CHLORIDE 101 mmol/L (98-107); COR CA(FOR HYPOALB) 9.2 mg/dL (8.5-10.1); CREATININE 0.53 mg/dL (0.55-1.02); GLUCOSE 104 mg/dL (65-99); POTASSIUM 4.5 mmol/L (3.5-5.1); SODIUM 134 mmol/L (136-145); TOTAL PROTEIN 5.5 g/dL (6.4-8.2); eGFR NON BLACK RACES > 60 (>60)
[2023-06-11] MEDS ORDERED: CONSULT PHARMACY - POTASSIUM & MAGNESIUM XX SCH (07:00)
--- NOTE | 2023-06-11 08:43 | DR.PROGNOT ---
HOSPITAL PROGRESS NOTE Progress Note for Day of: Progress Note Date: 06/11/23 Chief Complaint Chief Complaint: had soft BM yesterday . Moderate abdominal distention. mild nausea no vomiting KUB still showing dilated small loops and partial SBO. normal CBC . afebrile . abdomen is soft but tympanic with normal BS . Past Medical Family Social History Allergies: Allergies benzonatate [From Tessalon Perles] Allergy (Verified 06/02/23 19:37) meperidine [From Demerol] Allergy (Verified 06/02/23 19:37) Penicillins Allergy (Verified 06/02/23 19:37) rofecoxib [From Vioxx] Allergy (Verified 06/02/23 19:37) WATER PILLS Allergy (Uncoded 06/02/23 19:37) Review Of Systems ROS: No change since H&P Vital Signs Vital Signs: Vital Signs Temperature 97.8 F Temperature 98.2 F Pulse Rate [Left Brachial] 78 Pulse Rate [Left Brachial] 79 Respiratory Rate 20 Respiratory Rate 20 Blood Pressure [Left Arm] 125/68 Blood Pressure [Left Arm] 132/71 O2 Sat by Pulse Oximetry 96 O2 Sat by Pulse Oximetry 95 Physical Exam Oriented: Normal, Time, Person and Place Eyes: Normal; negative Blurred Vision, Diplopia, Discharge, Redness or Photophob ia Ear: Normal Nose: Normal Throat: Normal Respiratory: Normal Cardiovascular: Normal : Normal GI:Auscultation: Normal GI:Palpation: Normal GI: Tenderness: RLQ and Other (moderate distention , tympanic ,lower tenderness , BS+) Skin: Normal Musculoskeletal: Back:Lumbar, Tender and Instability Psychiatric: Anxiety Mood Description: Depressed and Anxious Affect: Anxious and Depressed; negative Angry, Flat, Hysterical, Quiet or Violent Speech Pattern: Clear and Appropriate Laboratory and Diagnostics 06/11/23 04:55 06/11/23 04:55 Labs: 06/08/23 15:25 Urine,Clean Catch Urine Culture - Preliminary Laboratory WBC 6.9 X10^3/uL (3.6-10.0) 06/11/23 04:55 RBC 3.83 X10^6/uL (3.5-5.4) 06/11/23 04:55 Hgb 12.4 g/dL (12.0-16.0) 06/11/23 04:55 Hct 36.0 % (36.0-47.0) 06/11/23 04:55 MCV 94.2 fL (80.0-100.0) 06/11/23 04:55 MCH 32.5 pg (27.0-34.0) 06/11/23 04:55 MCHC 34.5 g/dL (33.0-35.0) 06/11/23 04:55 RDW 14.1 % (11.6-16.5) 06/11/23 04:55 Plt Count 264 X10^3/uL (150.0-450.0) 06/11/23 04:55 MPV 7.2 fL (7.4-11.0) L 06/11/23 04:55 Neut % (Auto) 62.6 % (42.0-75.0) 06/11/23 04:55 Lymph % (Auto) 23.4 % (21.0-51.0) 06/11/23 04:55 [place] % (Auto) 10.0 % (0.0-13.0) 06/11/23 04:55 Eos % (Auto) 2.6 % (0.9-2.9) 06/11/23 04:55 Baso % (Auto) 1.4 % (0.2-1.0) H 06/11/23 04:55 Neut # (Auto) 4.3 x10^3/uL (2.2-4.8) 06/11/23 04:55 Lymph # (Auto) 1.6 X10^3/uL (1.3-2.9) 06/11/23 04:55 [place] # (Auto) 0.7 x10^3/uL (0.3-0.8) 06/11/23 04:55 Eos # (Auto) 0.2 x10^3/uL (0.0-0.2) 06/11/23 04:55 Baso # (Auto) 0.1 X10^3/uL (0.0-0.1) 06/11/23 04:55 Absolute Nucleated RBC 0.0 /100WBC 06/11/23 04:55 Sodium 134 mmol/L (136-145) L 06/11/23 04:55 Corrected Sodium TNP 06/11/23 04:55 Potassium 4.5 mmol/L (3.5-5.1) 06/11/23 04:55 Chloride 101 mmol/L (98-107) 06/11/23 04:55 Carbon Dioxide 26.2 mmol/L (21-32) 06/11/23 04:55 BUN 3 mg/dL (7-18) L 06/11/23 04:55 Creatinine 0.53 mg/dL (0.55-1.02) L 06/11/23 04:55 Est GFR (MDRD) Af Amer > 60 (>60) 06/11/23 04:55 Est GFR (MDRD) Non-Af > 60 (>60) 06/11/23 04:55 Glucose 104 mg/dL (65-99) H 06/11/23 04:55 Calcium 8.0 mg/dL (8.5-10.1) L 06/11/23 04:55 Corrected Calcium 9.2 mg/dL (8.5-10.1) 06/11/23 04:55 Magnesium 1.9 mg/dL (2.0-2.9) L 06/11/23 04:55 Total Bilirubin 0.40 mg/dL (0.2-1.0) 06/11/23 04:55 AST 21 Units/L (15-37) 06/11/23 04:55 ALT 27 Units/L (12-78) 06/11/23 04:55 Alkaline Phosphatase 64 Units/L (46-116) 06/11/23 04:55 Total Protein 5.5 g/dL (6.4-8.2) L 06/11/23 04:55 Albumin 2.5 g/dL (3.4-5.0) L 06/11/23 04:55 Globulin 3.0 g/dL (2.5-4.5) 06/11/23 04:55 Albumin/Globulin Ratio 0.8 Ratio (1.1-2.1) L 06/11/23 04:55 Lipase 77 Units/L (73-393) 06/02/23 19:55 Specimen Type Clean catch urine 06/08/23 15:25 Urine Color Yellow (YELLOW) 06/08/23 15:25 Urine Appearance Clear (CLEAR) 06/08/23 15:25 Urine pH 5.0 (5.0 - 8.0) 06/08/23 15:25 Ur Specific [place] 1.025 (1.000-1.030) 06/08/23 15:25 Urine Protein Negative (NEGATIVE) 06/08/23 15:25 Urine Glucose (UA) Negative (NEGATIVE) 06/08/23 15:25 Urine Ketones 3+ (NEGATIVE) 06/08/23 15:25 Urine Blood 1+ (NEGATIVE) 06/08/23 15:25 Urine Nitrite Positive (NEGATIVE) 06/08/23 15:25 Urine Bilirubin Negative (NEGATIVE) 06/08/23 15:25 Urine Urobilinogen Normal (NORMAL) 06/08/23 15:25 Ur Leukocyte Esterase 2+ (NEGATIVE) 06/08/23 15:25 Urine RBC 3-5 /HPF (0-3) A 06/08/23 15:25 Urine WBC 3-5 /HPF (0-5) 06/08/23 15:25 Ur Squamous Epith Cells Rare /HPF (NEGATIVE) 06/08/23 15:25 Urine Bacteria 2+ /HPF (NEGATIVE) 06/08/23 15:25 Ur Culture Indicated? Yes/culture set up 06/08/23 15:25 Assessment and Plan 1: partial SBO . abdominal adhesions . same plan and diet .. Problem Patient Problems: Patient Problems Intractable low back pain (Acute) M54.59
[2023-06-11] MEDS: LOVENOX INJ 40 MG SYR SC SCH (09:55)
[2023-06-11] MEDS: MAG-OX TAB PO SCH ×2 (09:55→13:01)
[2023-06-11] MEDS: LINZESS PO SCH (09:55)
[2023-06-11] MEDS: PROTONIX INJ 40 MG VIAL IVP SCH ×2 (09:55→20:05)
[2023-06-11] MEDS: INVanz INJ 1 GRAM VIAL 1 G in NS 100 ML IV 100 ML IV SCH (10:14)
[2023-06-11] MEDS: NS + KCL 20 MEQ/L 1,000 ML with MAGNESIUM SULFATE 50% INJ VIAL 1 G IV SCH ×4 (12:30→23:33)
--- NOTE | 2023-06-11 13:34 | DR.UPDATE ---
H&P Update Prescription drug monitoring program results: PDMP was not reviewed H&P Reviewed: Yes Any changes to H&P?: No Patient was examined?: Yes Vital Signs: Temp Pulse Pulse Resp BP Pulse Ox O2 Del Method 06/11/23 12:00 97.8 F 66 18 134/64 96 Room Air 06/11/23 07:00 Room Air 06/11/23 08:00 97.8 F 78 20 125/68 96 Room Air 06/11/23 04:00 98.2 F 79 20 132/71 95 Room Air 06/10/23 20:25 84 96 06/10/23 23:45 97.7 F 74 18 130/65 96 Room Air 06/10/23 19:00 Room Air 06/10/23 19:52 98.6 F 70 20 109/66 95 Room Air 06/10/23 16:00 97.8 F 52 L 18 114/71 95 Room Air 06/10/23 11:41 97.6 F 66 18 136/67 98 Room Air 06/10/23 08:55 Room Air 06/10/23 08:00 97.9 F 85 18 137/73 96 Room Air 06/10/23 07:00 Room Air 06/10/23 04:00 98.4 F 73 18 123/68 99 Room Air 06/09/23 20:35 Room Air 06/09/23 23:46 98.7 F 64 18 113/66 96 Room Air 06/09/23 19:00 Room Air 06/09/23 19:23 97.9 F 70 18 128/66 96 Room Air 06/09/23 16:00 98.0 F 64 20 103/57 92 L Room Air 06/09/23 12:00 98.2 F 57 L 20 103/57 92 L Room Air 06/09/23 07:00 Room Air 06/09/23 08:40 Room Air 06/09/23 08:00 98.9 F 86 20 111/57 96 Room Air 06/09/23 04:00 97.6 F 63 20 118/56 97 Room Air 06/09/23 00:00 98.2 F 65 20 110/58 95 Room Air 06/08/23 20:00 98.9 F 83 18 102/58 94 L Room Air 06/08/23 19:00 Room Air 06/08/23 15:57 97.6 F 73 20 123/85 93 L Room Air O2 Flow Rate FiO2 06/11/23 12:00 06/11/23 07:00 06/11/23 08:00 06/11/23 04:00 06/10/23 20:25 06/10/23 23:45 06/10/23 19:00 06/10/23 19:52 06/10/23 16:00 06/10/23 11:41 06/10/23 08:55 06/10/23 08:00 06/10/23 07:00 06/10/23 04:00 06/09/23 20:35 21 06/09/23 23:46 06/09/23 19:00 06/09/23 19:23 06/09/23 16:00 95 06/09/23 12:00 06/09/23 07:00 06/09/23 08:40 21 06/09/23 08:00 06/09/23 04:00 06/09/23 00:00 06/08/23 20:00 06/08/23 19:00 06/08/23 15:57 Procedures (ALL) - Central Line Placement PCM.CLCO: written consent Time out performed: Yes Patient placed pm monitor/pulse ox: Yes MD prep: mask, gown, gloves, other Centrial line prep: chlorhexidine scrub, sterile drapes applied Local anesthsia used: lidocane 1% Ultrasound used for placement: Yes (right basilic id'd via u/s and cannulation visualized) Central line lumen ininserted: double (5.5fr ArrowPicc, 50cm untrimmed cath threaded to 42cm; 8cm exposed) Post procedure: good blood return, all ports aspirated, flushed,capped, sterile dressing applied Post procedure xray: tip oc catheter in good position (appears to be svc termination), no pneumothorax seen Patient tolerated procedure: Yes Complications: none
[2023-06-11] MEDS ORDERED: MAG-OX TAB ONE (13:57)
--- NOTE | 2023-06-11 14:39 | RAD ---
EXAM:CHEST x-ray, 1 VIEWHISTORY:PICC LINE PLACEMENT; -COMPARISON:X-ray 05/17/2023FINDINGS:Right-sided PICC line terminates in the region of the mid SVC. Probable CHF is present and there could be pulmonary edema. There is probable underlying COPD. Pneumothorax or pleural effusion is seen. Arthritic changes are seen in the right shoulder.IMPRESSION:PICC line terminates in the region of the mid SVC.THIS IS AN ELECTRONICALLY VERIFIED FINAL [id number]/11/2023 2:22 PM - Electronically signed by Jose Huang MD
[2023-06-11] MEDS: TYLENOL 500 MG TAB EXTRA STRENGTH PO PRN (20:08)
[2023-06-12 05:55] LABS: BASOPHILS % (AUTO) 0.7 % (0.2-1.0); EOSINOPHILS # (AUTO) 0.3 x10^3/uL (0.0-0.2); EOSINOPHILS % (AUTO) 4.5 % (0.9-2.9); HEMATOCRIT 35.5 % (36.0-47.0); HEMOGLOBIN 12.1 g/dL (12.0-16.0); LYMPHOCYTES # (AUTO) 1.4 X10^3/uL (1.3-2.9); LYMPHOCYTES % (AUTO) 22.4 % (21.0-51.0); MEAN CORPUSCULAR HEMOGLOBIN 32.1 pg (27.0-34.0); MEAN CORPUSCULAR HGB CONC 34.1 g/dL (33.0-35.0); MEAN CORPUSCULAR VOLUME 94.2 fL (80.0-100.0); MEAN PLATELET VOLUME 6.9 fL (7.4-11.0); MONOCYTES # (AUTO) 0.5 x10^3/uL (0.3-0.8); NEUTROPHILS # (AUTO) 3.8 x10^3/uL (2.2-4.8); NEUTROPHILS % (AUTO) 63.4 % (42.0-75.0); PLATELET COUNT 239 X10^3/uL (150.0-450.0); RED BLOOD COUNT 3.77 X10^6/uL (3.5-5.4); RED CELL DISTRIBUTION WIDTH 14.2 % (11.6-16.5)
[2023-06-12 06:06] LABS: ALANINE AMINOTRANSFERASE 24 Units/L (12-78); ALBUMIN 2.5 g/dL (3.4-5.0); ALKALINE PHOSPHATASE 66 Units/L (46-116); ASPARTATE AMINO TRANSFERASE 22 Units/L (15-37); BLOOD UREA NITROGEN 4 mg/dL (7-18); CALCIUM 7.8 mg/dL (8.5-10.1); CARBON DIOXIDE 23.1 mmol/L (21-32); CHLORIDE 102 mmol/L (98-107); CREATININE 0.44 mg/dL (0.55-1.02); GLUCOSE 110 mg/dL (65-99); MAGNESIUM 2.3 mg/dL (2.0-2.9); POTASSIUM 4.2 mmol/L (3.5-5.1); SODIUM 134 mmol/L (136-145); TOTAL PROTEIN 5.4 g/dL (6.4-8.2); eGFR NON BLACK RACES > 60 (>60)
[2023-06-12] MEDS ORDERED: CONSULT PHARMACY - POTASSIUM & MAGNESIUM XX SCH (07:00)
[2023-06-12] MEDS: TYLENOL 500 MG TAB EXTRA STRENGTH PO PRN (07:49)
[2023-06-12 08:04] VITALS: TEMP 97.9
[2023-06-12] MEDS: INVanz INJ 1 GRAM VIAL 1 G in NS 100 ML IV 100 ML IV SCH (08:13)
[2023-06-12] MEDS: LINZESS PO SCH (08:15)
[2023-06-12] MEDS: LOVENOX INJ 40 MG SYR SC SCH (08:15)
[2023-06-12] MEDS: PROTONIX INJ 40 MG VIAL IVP SCH (08:15)
[2023-06-12] MEDS: DURAGESIC 12 MCG/HR PATCH TD SCH (08:16)
[2023-06-12 12:24] VITALS: BP 143/67; PULSE 82; RESP 20; O2SAT 94
[2023-06-12] MEDS ORDERED: BUTT CREAM (COMPOUND) ONE (13:40)
== END 2023-06-12 15:10 | DRG 552 ==
LOC: MED/SURG 19:35 → ER 19:35 → MED/SURG 21:12
PROVIDERS: ADMIT Family Medicine; ATTEND Family Medicine
DX: R53.1 Weakness; K59.09 Other constipation; M54.59 Other low back pain; K21.9 Gastro-esophageal reflux disease without esophagitis; B96.29 Other Escherichia coli [E. coli] as the cause of diseases classified elsewhere; R41.0 Disorientation, unspecified; Z16.12 Extended spectrum beta lactamase (ESBL) resistance; K56.690 Other partial intestinal obstruction; E87.1 Hypo-osmolality and hyponatremia; I10 Essential (primary) hypertension; M48.56XA Collapsed vertebra, not elsewhere classified, lumbar region, initial encounter for fracture; Z74.09 Other reduced mobility; R10.84 Generalized abdominal pain; E87.6 Hypokalemia; R26.89 Other abnormalities of gait and mobility; D64.89 Other specified anemias; N39.0 Urinary tract infection, site not specified; F41.8 Other specified anxiety disorders